=== PATIENT | male | born 1955 | race Caucasian/White ===

== ENCOUNTER 2023-11-20 06:47 | Inpatient (IN) | payer MEDICARE, BC, SELFPAY ==
[2023-11-20] VITALS (59 sets, daily range): BP systolic 52–150; BP diastolic 33–122; BMI 35.3
[2023-11-20] MEDS: NSS 1000 IV ×4 (05:38→20:43)
--- NOTE | 2023-11-20 05:40 | ED.GENMED ---
History of Present Illness
General
Chief Complaint: Abdominal Symptoms
Source: patient and ambulance crew
Exam Limitations: clinical condition
Time Seen by Provider: 11/20/23 05:27
History of Present Illness
History of Present Illness:
68-year-old male who presents with acute rectal bleeding. Patient states that started 2 hours prior to arrival. EMS states that there was a significant amount of blood in the toilet and in the house. He tried crawling out of the bathroom and
syncopized and was hypotensive. Patient reports no pain. Does report mild nausea. Does have a history of diverticulosis. Patient is on Eliquis took his last dose last night. He takes Eliquis due to atrial fibrillation history.
Past History
Past History
ED Past Medical History: Arrthythmia (Atrial fibrillation), HTN, Hypercholesterolemia and Other (Diverticulitis/diverticulosis)
Phy Exam
Physical Exam
Physical Exam:
CONSTITUTIONAL Patient alert and oriented to person, place and time. ill-appearing. Vital signs reviewed.
HEAD atraumatic, normocephalic.
EYES eyelids normal to inspection, Extraocular muscles intact, Conjunctiva normal, Sclera normal.
NECK normal range of motion, Trachea midline, no jugular venous distention.
RESPIRATORY CHEST No respiratory distress noted, Chest expansion equal
ABDOMEN large ventral hernia noted
Rectal obvious blood coming from the rectum
BACK normal inspection, no obvious deformities
UPPER EXTREMITY range of motion normal, Motor strength normal, no cyanosis, no edema.
LOWER EXTREMITY range of motion normal, Motor strength normal, no cyanosis, no edema.
NEURO Speech normal, No focal motor deficits, [place] coma scale 15, Memory normal, Cranial Nerves intact to screening exam.
SKIN skin warm, slightly pale
Course
Orders/Labs/Results
Orders:
Orders
11/20/23 05:27
Electrocardiogram (*1) Stat
Reason for Study: Other
Other Reason for Exam: GI Bleed
Cardiac Monitoring- Treatment ONCE
EKG- Treatment ONCE
IV Insert/Care/Rem.- Treatment PRN
11/20/23 05:33
Type+Screen Urgent
Alcohol Urgent
Complete Blood Count/With Diff Urgent
Comprehensive Metabolic Panel Urgent
Magnesium Urgent
Comment: ADD ON
PTT Urgent
Comment: ADD ON
Prothrombin Time Urgent
11/20/23 05:34
CT Abd/pelvis Angio W/wo Iv Urgent
Comment:
Reason For Exam: lower GI bleed
11/20/23 05:36
* Blood Bank Products Urgent
Blood Bank Products: *Packed RBC Leuko(PRBC's)
Quantity: 2
Transfuse Today: Yes
Reason: Bleeding
11/20/23 05:37
IV Insert/Care/Rem.- Treatment PRN
11/20/23 05:41
Diphenhydramine [Benadryl] 50 mg IV NOW STA
Hydrocortisone Sod Succinate [Solu-Cortef] 200 mg IV NOW STA
11/20/23 05:45
0.9% Sodium Chloride 1000 ml [Nss] 1,000 ml IV 2,000 mls/hr
11/20/23 05:46
Prothrombin Complex(Pcc),Human [Kcentra] 2,573 unit Empty Viaflex Container 100 ml [Viaflex Empty Container] 100 ml IV NOW
11/20/23 Breakfast
NPO
Allow oral meds: Yes
Allow clear liquids: Sips of Clears
NPO with Ice Chips: Yes
11/20/23 06:29
Admit/Transfer Patient As Directed
Co-Sign Provider:
Level of Care: Inpatient admission
Assign to:: ICU
Physician / Group: Micah
Diagnosis: GI Bleed
Reason for Hospitalization: GI Bleed
Expected length of stay greater than two midnights?: Yes
ELOS- Estimated Length of Stay in days: 3
I certify the patient meets the requirements for IP care: Yes
PRN Pain Medication Management As Directed
May give lesser potent ordered pain med per pt: Yes
preference::
Protocol:: Medication orders for pain may be administered in a
manner that supports deferring to patient preference
when the pt is:
- Requesting an ordered lesser potent pain medication.
Least to most potent pain medications are defined
as: acetaminophen < NSAID < tramadol < opioids
(morphine, oxycodone, hydromorphone).
- Requesting a lesser dose of the same medication IF
ORDERED.
- Requesting a less intrusive route of administration
if both routes are prescribed by the provider (PO <
IV).
11/20/23 06:30
Code Status As Directed
Resuscitation Status: Full Code
11/20/23 07:43
GASTROINTESTINAL CONSULT Routine
Consulting Provider: Suri Young
Was physician already notified: Yes
Reason for consult: GI Bleed
Stoper Consult Routine
Consulting Provider: Mik Phipps
Was physician already notified: No
Reason for consult: GI Bleed / Hypotension
11/20/23 07:52
Ondansetron Injectable [Zofran] 4 mg IV Q6HPRN PRN
11/20/23 07:52
Consult Notification Routine
Specialty to Notify: Stoper
Date consulting provider notified: 11/20/23
Time consulting provider notified: 08:02
Notified:: Provider
Activity As Directed
Activity Level: Bedrest
EKG with chest pain [ECG as needed] As Directed
ECG as needed for:: Chest Pain
I/O [Intake/ Output] As Directed
Frequency: Per unit guidelines
Pneumatic Compression Sleeves As Directed
Type: Knee high
Vital Signs As Directed
Frequency: Per unit guidelines
Oxygen Therapy [O2 Therapy] [RESP] Routine
Titrate/Wean O2 to maintain O2 sat greater than (%): 94
DX Deep Vein Thrombosis Video Routine
11/20/23 08:00
0.9% Sodium Chloride 1000 ml [Nss] 1,000 ml IV 200 mls/hr
Pantoprazole [Protonix IV] 40 mg IV BID
11/20/23 09:07
HH [H&H] Q6H
11/20/23 14:13
HH [H&H] Q6H
11/20/23 20:54
HH [H&H] Q6H
Abnormal Lab Results
11/20/23
05:33
WBC 16.4 H 10^3/uL
(4.8-10.8)
RBC 3.61 L 10^6/uL
(4.70-6.10)
Hgb 12.0 L g/dL
(13.0-18.0)
Hct 35.3 L %
(39.0-52.0)
MCV 97.8 H fL
(80.0-94.0)
MCH 33.2 H pg
(27.0-31.0)
Abs Immat Gran (auto) 0.2 H 10^3/uL
(0-0.05)
Absolute Neuts (auto) 13.0 H 10^3/uL
(1.4-6.5)
Absolute Monos (auto) 1.0 H 10^3/uL
(0.1-0.6)
Immature Gran % 1.2 H %
(0-0.5)
Neutrophils % 79.4 H %
(42.2-75.2)
Lymphocytes % 12.1 L %
(20.5-51.1)
PT 17.0 H Sec
(11.4-14.6)
Chloride 109 H mmol/L
(98-107)
BUN 26 H mg/dl
(9-20)
Glucose 257 H mg/dl
(70-99)
Total Protein 5.2 L g/dl
(6.3-8.2)
Albumin 2.8 L g/dl
(3.5-5.0)
Crossmatch IS Only See Detail
11/20/23 05:33
11/20/23 05:33
Vital Signs
Initial and Last Documented VS:
Initial Vital Signs
Pulse Resp Pulse Ox
93 20 95
11/20/23 05:28 11/20/23 05:28 11/20/23 05:28
Last Documented Vital Signs
Temp Pulse Resp BP Pulse Ox
98.0 F 87 20 131/77 96
11/21/23 03:34 11/21/23 04:30 11/21/23 04:30 11/21/23 04:00 11/21/23 04:30
MDM/Problems Addressed
MDM/Problems Addressed:
Acute severe GI bleeding, therapeutic coagulopathy
*Pulse Oximetry
Patient hypoxic: no
*Acetylene Plant Operator Interpretation
Rate: normal
Interpretation: normal
Rhythm: sinus
*Critical Care Note
Total Time (30-74mins, 75-104mins- exclusive of procedures): 80 minutes
Data Reviewed
Source: patient and ambulance crew
Patient Management
Discussion with other providers: Hospitalist and Epic Ambulatory Analyst (Case discussed with gastroenterology)
Update Note
Update Note:
6:15 AM blood pressure improving with IV fluids. GI aware. Hospitalist at bedside. Case was discussed with hospitalist. Marquita ramires.
ED Attending Note
-
Portions of this chart may have been created with voice recognition software.� Occasional wrong word or��sound alike� substitutions may have occurred due to the inherent limitations of voice recognition software.
Discharge Plan
Departure
Patient Disposition: Admit
Date of Disposition: 11/20/23
Time of Disposition: 06:01
Admit to: ICU
Presentation/result/management discussed w/ accepting MD/DO: Hospitalist
Discharge Problem:
Acute GI bleeding
Interventions
Interventions:
*General Assessment Last Done: 11/20/23 08:01
*Neglect/Abuse Screening Last Done: 11/20/23 08:01
ED- Fall Risk Assessment Last Done: 11/20/23 06:03
*Nursing Disposition Last Done: 11/20/23 08:01
NE-Rpakcm-Wvbwwevoxj Assessment Last Done: 11/20/23 06:03
Discharge Date and Time
Discharge Date/Time: 11/20/23 08:03
[2023-11-20 05:41] LABS: % Basophils 0.4 % (0-2); % Eosinophils 0.8 % (0-6); % Immature Granulocytes 1.2 % (0-0.5); % Lymphocytes 12.1 % (20.5-51.1); % Monocytes 6.1 % (1.7-9.3); % Neutrophils 79.4 % (42.2-75.2); Absolute Basophils 0.1 10^3/uL (0-0.2); Absolute Eosinophils 0.1 10^3/uL (0-0.7); Absolute Immature Granulocytes 0.2 10^3/uL (0-0.05); Hematocrit 35.3 % (39.0-52.0); Mean Corpuscular Hgb 33.2 pg (27.0-31.0); Mean Corpuscular Volume 97.8 fL (80.0-94.0); Mean Platelet Volume 10.1 fL (7.4-10.4); Nucleated Red Blood Cells % 0 % (-); Platelet Count 179 10^3/uL (130-400); Red Blood Cell Count 3.61 10^6/uL (4.70-6.10); Red Cell Dist. Width 13.3 % (11.5-14.5); White Blood Cell Count 16.4 10^3/uL (4.8-10.8)
[2023-11-20 05:51] LABS: INR 1.41
[2023-11-20 05:53] LABS: ALT (SGPT) 33 U/L (0-50); AST (SGOT) 26 U/L (17-59); Albumin 2.8 g/dl (3.5-5.0); Alkaline Phosphatase 69 U/L (38-126); Blood Urea Nitrogen 26 mg/dl (9-20); Carbon Dioxide 22 mmol/L (22-30); Chloride 109 mmol/L (98-107); Glucose 257 mg/dl (70-99); Potassium 4.7 mmol/L (3.5-5.1); Sodium 135 mmol/L (135-145); Total Bilirubin 0.6 mg/dl (0.2-1.3); Total Protein 5.2 g/dl (6.3-8.2); eGFR > 60.00
[2023-11-20] MEDS: SOLU-CORTEF 200 MG IV (05:53)
[2023-11-20] MEDS: BENADRYL 50 MG IV (05:53)
[2023-11-20] MEDS: KCENTRA 100 UNIT IV (05:56)
--- NOTE | 2023-11-20 06:35 | HPS.HSE ---
Family Physician
-
Family Physician: PHYSICIAN PRIVATE
Chief Complaint
-
GI Bleeding
History of Present Illness
Patient is a 68y M with PMH significant for A-Fib on anticoagulation and diverticular disease who presents to ED complaining of gross rectal bleeding, N/V and syncope at home this evening. Patient states that he was feeling well when he went to
bed last PM. He woke around 3 AM with urge to move his bowels and had loose, non-bloody BM. He states that he woke several additional times throughout the evening. On the third such episode, he noted a small amount of BRB in the stool. He had
any additional 2-3 episodes with progressively more blood ultimately resulting in bright red blood 'all over' the bathroom and his person. Patient began to feel nauseated, lightheaded and diaphoretic. He had several episodes of emesis at home. He
called 911. He attempted to get out of the bathroom and notes that he passed out.
EMS arrived to find the patient covered in bright red blood and lethargic.
He was brought to the ED for further evaluation.
Patient had additional episodes of emesis en route to the ED - no noted blood / coffee ground / etc.
Patient denies any prior history of GI bleeding.
He has history of complicated diverticulitis and require partial colon resection (approx 2001).
Patient is on Eliquis for A-Fib and his last dose of this was the PM of 11/18.
Medical History
Past Medical History
Past Medical History: Reports Other
Additional Past Medical History:
Atrial Fibrillation
Diverticular Disease
Large Ventral Hernia
Past Surgical History: Reports Other
Additional Past Surgical History:
Partial Colectomy
Bladder Mass Excision / Ureteral Stenting
Umbilical Hernia Repair
Cataracts
DCCV x 2
Social History
Tobacco: Non-smoker
Alcohol: Occasional (Rarely)
Drug: None
Family History
Family History: Not pertinent
Allergies / Home Medications
Allergies reflects when Allergies were last updated in [facility].
Home Medications with original date entered in [facility]
Allergy/Medication List:
Allergies
Allergy/AdvReac Type Severity Reaction Status Date / Time
Iodinated Contrast Media Allergy Vomiting Verified 11/20/23 05:36
Home Medications
apixaban 5 mg tablet (Eliquis) 5 mg PO BID 11/20/23
propafenone 325 mg capsule,extended release 12 hr 325 mg PO Q12H 11/20/23
Patient states that he takes 'two other medications'. But he cannot recall the names / doses.
Pharmacy is [facility] [place].
Review of Systems
-
History Source: Patient
A 12 point ROS was completed and negative except as noted: Yes
Constitutional: Reports Fatigue; Denies Fever or Chills
EENT: Denies Sore Throat
Respiratory: Denies Cough, Hemoptysis or Trouble Breathing
Cardiac: Reports Diaphoresis and Syncope; Denies Chest Pain or Palpitations
Abdomen/GI: Reports Nausea, Vomiting, Diarrhea and Bloody Stools; Denies Abdominal Pain
: Denies Dysuria, Frequency or Flank Pain
Musculoskeletal: Denies Joint Pain or Edema
Psych: Denies Depression or Anxiety
Physical Exam
Vital Signs
Vital Signs
Pulse Resp BP Pulse Ox
94 17 103/56 94
11/20/23 06:00 11/20/23 06:00 11/20/23 06:00 11/20/23 06:00
Physical Exam
General: Other (68y M appears acutely ill. Mildly pale and diaphoretic.)
HEENT: Other (Dry MM. Thick neck.)
Respiratory: Clear; No Wheezes, Rales or Rhonchi
Cardiac: S1/S2 and Regular Rhythm; No Murmur
GI: Other (Obese. Massive ventral hernia. Not tender. Gross rectal bleeding / clots appreciated.)
Musculoskeletal: No Clubbing, No Cyanosis, No Edema and Other (Chronic venous stasis skin changes.)
Neuro: AO x 3
Laboratory Results
-
11/20/23 05:33
11/20/23 05:33
Laboratory Results
PT 17.0 Sec (11.4-14.6) H 11/20/23 05:33
INR 1.41 11/20/23 05:33
Total Bilirubin 0.6 mg/dl (0.2-1.3) 11/20/23 05:33
AST 26 U/L (17-59) 11/20/23 05:33
ALT 33 U/L (0-50) 11/20/23 05:33
Alkaline Phosphatase 69 U/L (38-126) 11/20/23 05:33
Impression/Plan
-
A/P: Patient is a 68y M with PMH significant for A-Fib and diverticular disease who presents to ED complaining of lower GI bleeding and syncope at home this AM.
Lower GI Bleed
Hypotension secondary to the above
Syncope likely secondary to the above
- Admit to ICU for further evaluation and treatment.
- KCentra administered in the ED given Eliquis use and active bleeding.
- Hold further Eliquis (last dose last PM).
- Aggressive IVF support and follow BP.
- CTA ordered and is pending at this time (requires pre-treatment due to dye allergy).
- Follow-up results of CTA and consider IR eval / angio if evidence of active extravasation.
- 2 units PRBCs ordered given evident / significant blood loss.
- Follow H&H and provide additional PRBCs if needed.
- GI evaluation.
Leukocytosis
- Likely stress response to significant bleeding, etc.
- No evidence for active infection.
- Observe off of abx for now.
- Follow for fever, new symptoms, etc.
Atrial Fibrillation - Unknown Type
- Stable. Hold PO meds including propafenone and Eliquis.
- Monitor on telemetry.
- Consider IV medications if needed for rate control, etc.
Massive Ventral Hernia
- Patient states this occurred following partial colon resection.
- No current abdominal pain. No significant change in hernia per patient.
- Follow-up results of CT as noted above.
DVT Prophylaxis: SCDs
Code Status: Full
--- NOTE | 2023-11-20 06:55 | EDRN ---
Addendum entered by Marilee Ryan, RN 11/20/23 07:26:
Patient brought back to room by 2 RNs. Blood initiated emergently per Dr. Orantes's orders. Patient remains responsive to verbal stimuli.
Original Note:
Patient taken to CT scan, when moved over to the table patient had a vagal response. Patient diaphoretic and unresponsive. Dr. Mariscal at bedside in CT. Blood card sent at this time. Patient became responsive, Dr. Mariscal stated to complete CT
--- NOTE | 2023-11-20 07:38 | W.PN.HOSP.TC ---
Today's Communication/Plan
-
monitor H&H
GI Bioinformatics Computer Scientist eval
Blood transfusion
considering Nuclear Bleeding Scan if bloody bowel movements persist
Assessment / Plan
Assessment / Plan
Physical Exam
General: no acute distress appears comfortable at this time. Obese
HEENT: Dry MM. Thick neck
Respiratory: Clear; No Wheezes, Rales or Rhonchi
Cardiac: S1/S2 and Regular Rhythm; No Murmur
GI: Massive ventral hernia. Not tender
Musculoskeletal: No Clubbing, No Cyanosis, No Edema, Chronic venous stasis skin changes
Neuro: AO x 3
A/P: Patient is a 68y M with PMH significant for A-Fib and diverticular disease who presents to ED complaining of lower GI bleeding and syncope at home this AM.
Lower GI Bleed
Hypotension secondary to the above
Syncope likely secondary to the above
- ICU admit
- KCentra administered in the ED given Eliquis use and active bleeding.
- Hold further Eliquis (last dose last PM).
- Aggressive IVF support and follow BP.
- CTA appreciated no active bleeding noted. Will consider Nuclear Bleeding Scan if bleeding persists
- 2 units PRBCs ordered given evident / significant blood loss.
- monitor H&H
- GI Bioinformatics Computer Scientist evaluation.
-Levophed prn goal MAP>65
Leukocytosis
- Likely stress response to significant bleeding, etc.
- No evidence for active infection.
- Observe off of abx for now.
- Follow for fever, new symptoms, etc.
Atrial Fibrillation - Unknown Type
- Stable. Hold Eliquis as above
-resume home propafenone (patient's own med)
- cont panel monitor
- Consider IV medications if needed for rate control, etc.
Massive Ventral Hernia
- Patient states this occurred following partial colon resection.
- No current abdominal pain. No significant change in hernia per patient.
- Follow-up results of CT as noted above.
DVT Prophylaxis: SCDs
Code Status: Full
Total Critical Care Time__40___ minutes. I was immediately available to the patient and staff. I personally examined, reviewed labs, diagnostic images/reports, interpretations, treatment plans, discussed patient care with other providers and
patient, entered orders as appropriate and documented the medical record.
Anticipated Discharge: > 48 hours
Subjective/Interval History
-
Date of Service: November 20, 2023
Seen and examined at bedside in no acute distress. Reports feeling better (resolution of lightheadedness palpitations) following blood transfusions (on 2nd unit during evaluation). Continues to endorse bloody bowel movements with associate
cramping.
Objective Data
-
Labs:
Laboratory Results
11/20/23
05:33
WBC 16.4 H
Hgb 12.0 L
Hct 35.3 L
Plt Count 179
PT 17.0 H
INR 1.41
Sodium 135
Potassium 4.7
Chloride 109 H
Carbon Dioxide 22
BUN 26 H
Creatinine 1.1
Glucose 257 H
Calcium 9.0
Total Bilirubin 0.6
AST 26
ALT 33
Alkaline Phosphatase 69
Vital Signs:
Vital Signs
Temp Pulse Resp BP Pulse Ox
97.7 F 91 13 120/68 94
11/20/23 07:30 11/20/23 07:30 11/20/23 07:30 11/20/23 07:30 11/20/23 07:30
I&O
11/19/23 11/20/23 11/21/23
06:59 06:59 06:59
Intake Total 0 / 0
Balance 0 / 0
--- NOTE | 2023-11-20 08:26 | PTCARENOTE ---
0826 admitted from ED DX GI bleed. patient transfer via stretcher. AAO x3; drowsy, responds slow to questions; BP via RT upper arm 101/73 MAP 82 SR 97; RR 18; 98% RA. SR cardiac rhythm. No edema pedal pulses palpable PVD changes to b/L LE. Abdominal
large hernia, abdomen soft , non tender. c/o of abdominal cramping, Large amount of bright red with clots via rectum . pt NPO.
At 08:26 BP 64/47; HR 87 . GI service at bedside. per V.O NSS wide open 1L initiated. 2nd unit PRBC started ., H/H send result pending. Peripheral lines left x2 RT out arm # 18 capped
[2023-11-20 08:30] LABS: APTT 29.1 Sec (23.4-35.0)
--- NOTE | 2023-11-20 08:55 | CON.GI ---
Consultation
-
Date/Time Consultation Requested: 11/20/23 0743
Date/Time Consultation Performed: 11/20/23 0820
Requesting Provider: Dr Obrien
Performing Provider: Dr. Young / Negin Galeana PA-C
Reason for Consultation: lower GI bleeding
Medical History
Chief Complaint / HPI
Chief Complaint: rectal bleeding
History of Present Illness:
This is a 68 year old male with a past medical history of atrial fibrillation (on Eliquis), prior history of diverticulitis 20 years ago (s/p partial colectomy), ventral hernia who presented to the ER for acute rectal bleeding. He states that he
went to bed last night feeling well, and woke up in the night with the urge to have a bowel movement. He did pass stool, described as brown, formed but slightly loose, and then started to notice a small amount of blood in the bowel movements. This
progressed to passing only blood, which was described as 'a lot' and bright red in color. He felt nauseous and did vomit a few times as well - no hematemesis or coffee grounds emesis. He called 911 and per patient, he lost consciousness. EMS arrived
and patient was transported to the ED, where he continued to have additional episodes of rectal bleeding. Hemoglobin in the ER stable at 12.0, repeat is still pending. He was noted to be hypotensive, patient was given IV fluid and transfused 1 unit
of PRBCs in the ER. He denies any abdominal pain, diarrhea, fever, chills. He has never had any bleeding like this before. Patient denies NSAID use. He is on Eliquis for a fib, last dose was 11/19/23 in the evening. CTA abdomen negative for active
bleeding.
His last colonoscopy was approximately [address] Gomez at [facility], normal per patient. He denies any history of colon polyps. There is no family history of colon cancer or IBD. He does note that he has had a large ventral hernia
since his partial colectomy but it has not caused him any pain. He also notes a history of bladder mass, which was removed at the time of the colectomy surgery, but states it was not malignant.
Past Medical History
Past Medical History: Other (atrial fibrillation, diverticular disease, ventral hernia)
Past Surgical History: Other (partial colectomy ~20 years ago due to acute diverticulitis)
Social History
Tobacco: Non-Smoker
Alcohol: Occasional
Drug: None
Family History
Family History: Other (no family history of GI malignancies or IBD)
Allergies / Home Medications
Allergy/AdvReac Type Severity Reaction Status Date / Time
Iodinated Contrast Media Allergy Vomiting Verified 11/20/23 05:36
�Medication �Instructions �Recorded
apixaban 5 mg tablet (Eliquis) 5 mg PO BID 11/20/23
propafenone 325 mg 325 mg PO Q12H 11/20/23
capsule,extended release 12 hr
Review of Systems
-
History Source: Patient
All other systems: A 12 pt ROS was Negative except as stated above in HPI
Vital Signs
Temp Pulse Resp BP Pulse Ox
98 F 89 18 80/67 98
11/20/23 08:35 11/20/23 08:35 11/20/23 08:35 11/20/23 08:35 11/20/23 07:45
Physical Exam
Exam
General: Well Developed, Well Nourished and No Apparent Distress
Respiratory: Clear
Cardiac: Regular Rhythm
GI: Soft, Non Tender, Normal Bowel Sounds and Other (obese abdomen, with large ventral hernia, nontender to palpation)
Rectal: Other (large burgundry clots noted on rectal exam, no active bleeding)
Skin: Warm and Dry
Neuro: AO x 3
Psych: Calm
Results
WBC 16.4 10^3/uL (4.8-10.8) H 11/20/23 05:33
Hgb 12.0 g/dL (13.0-18.0) L 11/20/23 05:33
Hct 35.3 % (39.0-52.0) L 11/20/23 05:33
MCV 97.8 fL (80.0-94.0) H 11/20/23 05:33
Plt Count 179 10^3/uL (130-400) 11/20/23 05:33
Absolute Neuts (auto) 13.0 10^3/uL (1.4-6.5) H 11/20/23 05:33
PT 17.0 Sec (11.4-14.6) H 11/20/23 05:33
INR 1.41 11/20/23 05:33
APTT 29.1 Sec (23.4-35.0) 11/20/23 05:33
Sodium 135 mmol/L (135-145) 11/20/23 05:33
Potassium 4.7 mmol/L (3.5-5.1) 11/20/23 05:33
Chloride 109 mmol/L (98-107) H 11/20/23 05:33
Carbon Dioxide 22 mmol/L (22-30) 11/20/23 05:33
BUN 26 mg/dl (9-20) H 11/20/23 05:33
Creatinine 1.1 mg/dL (0.7-1.3) 11/20/23 05:33
Calcium 9.0 mg/dl (8.4-10.2) 11/20/23 05:33
Total Bilirubin 0.6 mg/dl (0.2-1.3) 11/20/23 05:33
AST 26 U/L (17-59) 11/20/23 05:33
ALT 33 U/L (0-50) 11/20/23 05:33
Alkaline Phosphatase 69 U/L (38-126) 11/20/23 05:33
Diagnostic Image Results:
CTA Abdomen/Pelvis 11/20/23:
1. No CTA evidence for active GI bleed.
2. No abdominal aortic aneurysm or dissection.
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
4. Moderate diffuse colonic stool burden with scattered probable intraluminal blood products.
5. Large ventral abdominal wall hernia containing bowel loops without complication.
Prior GI Procedures:
EGD: never
Colonoscopy: ~5 years ago, with Dr. Gomez, normal per patient
Assessment / Plan
-
68 year old male with history of atrial fibrillation (on Eliquis), prior history of diverticulitis 20 years ago (s/p partial colectomy), ventral hernia admitted to the ICU for acute rectal bleeding with syncope at home and hypotension. He has had
multiple episodes of passing bright red blood with clots per rectum since arrival in the ER. Hemoglobin stable at 12.0, repeat is still pending. Patient was given IV fluid and transfused 1 unit of PRBCs in the ER, second unit is in progress. He
denies any abdominal pain, diarrhea, fever, chills. He denies any prior episodes of GI bleeding. He did have diverticulitis 20 years ago, requiring partial colectomy. No NSAID use. He is on Eliquis for a fib, last dose was 11/19/23 in the evening.
CTA abdomen negative for active bleeding. BP improving with fluids and transfusion. His last colonoscopy was approximately [address] Gomez at [facility], normal per patient. He denies any history of colon polyps. There is no family
history of colon cancer or IBD.
IMPRESSION / PLAN:
Lower GI Bleed, acute - suspect diverticular bleeding
-Hgb 12.0 on arrival in ED, repeat pending
-2 units PRBCs ordered, received 1 unit in ER, second unit in progress
-trend hemoglobin, transfuse again if drops below 7.0
-monitor hypotension, continue aggressive IVF support
-will plan for colonoscopy on Tuesday 11/21 after Eliquis washout
Ventral Hernia
-stable and patient currently has no abdominal pain
We will follow.
-
-
Thank you for consultation and allowing me to participate in the patient's care. Please call the personnel consultant GI physician during the after hours with any questions or concerns.
[2023-11-20 09:16] LABS: Hematocrit 32.9 % (39.0-52.0); Hemoglobin 11.3 g/dL (13.0-18.0)
--- NOTE | 2023-11-20 09:33 | CON.INTV ---
Consultation
Consultation Request
Date/Time Consultation Requested: 11/20/2023-8 AM
Date/Time Consultation Performed: 11/20/2023-8 AM
Requesting Provider: Hospitalist
Performing Provider: Dr. Phipps
Reason for Consultation: GI bleed/hypotension/critical care management
Medical History
-
Chief Complaint: GI bleed
History of Present Illness:
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
Patient continues to feel weak with marginal blood pressure. He denies any shortness of breath at rest, chest pain, chest tightness, chest congestion, productive cough, and denies any abdominal pain. He did have blood per rectum and syncopal
episode. He does not complain of increased lower extremity swelling or focal weakness.
Past Medical History
Past Medical History: None (Atrial fibrillation on anticoagulation. Diverticular disease. Ventral hernia. Asthma. Obstructive sleep apnea on CPAP. Partial colectomy. Umbilical hernia repair. Bladder mass excision/ureteral stenting. Cataract.)
Social History
Tobacco: Non-smoker
Alcohol: Occasional (Rare)
Drug: None
Living: With Family
Occupational Exposures: No known asbestos exposure
Environmental Exposures: No known tuberculosis exposure
Family History
Family History: Reviewed & Not Pertinent
Allergies / Home Medications
Allergies
Allergy/AdvReac Type Severity Reaction Status Date / Time
Iodinated Contrast Media Allergy Vomiting Verified 11/20/23 05:36
Home Medications
�Medication �Instructions �Recorded �Confirmed �Last Taken �Type
apixaban 5 mg tablet (Eliquis) 5 mg PO BID 11/20/23 11/20/23 Unknown History
propafenone 325 mg 325 mg PO Q12H 11/20/23 11/20/23 Unknown History
capsule,extended release 12 hr
Review of Systems
-
Unable to Obtain full review of systems at this time due to: Other (Per HPI)
Vitals / Labs / Diagnostic Testing
Vital Signs
Temp Pulse Resp BP Pulse Ox
98.0 F 84 18 139/122 98
11/20/23 08:50 11/20/23 08:50 11/20/23 08:50 11/20/23 08:50 11/20/23 08:50
Lab Data
11/20/23 05:33
Laboratory Results
11/20/23
05:33
PT 17.0 H
INR 1.41
APTT 29.1
Diagnostic Testing:
Physical Exam
-
Exam:
Well-nourished and well-developed in no apparent distress
HEENT-atraumatic, normocephalic
Neck-supple, no JVD, no bruit
Heart-regular rate and rhythm-no murmurs, rubs or gallops
Chest-clear to auscultation, no wheezes, crackles
Back-no tenderness
Abdomen-soft, nontender, nondistended, no hepatosplenomegaly
Extremities-no cyanosis, clubbing, edema and good peripheral pulses
Integument-intact, no rashes, lesions or ecchymosis
Neurology-alert and oriented, nonfocal motor and sensory exam
Assessment
-
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
GI bleed-lower
Hypotension secondary to acute blood loss
Anemia due to acute blood loss-initial 12.0 and now 11.3
Syncope due to blood loss/hypotension
Leukocytosis-WBC 16.4
Atrial fibrillation on Eliquis
Massive ventral hernia-occurred following partial colon resection
Hyperglycemia-blood sugar 257
Conditions present prior to admission:
Atrial fibrillation on anticoagulation.
Diverticular disease-20 years ago status post partial colectomy
Ventral hernia.
Asthma.
Obstructive sleep apnea on CPAP.
Partial colectomy.
Umbilical hernia repair. Bladder mass excision/ureteral stenting. Cataract.
Plan
Patient will be admitted to medical intensive care with active bleeding, critically ill and in need of resuscitation
Supplemental oxygen as needed
Intubated mechanically ventilated if needed
Aspiration precautions
Incentive spirometry
Monitor hemoglobin
Transfuse packed red blood cells and FFP as needed
Monitor coagulopathy
GI evaluation ongoing
Eliquis held
Kcentra provided
Last colonoscopy 5 years ago-Dr. Gomez at [facility]
Repeat colonoscopy Wednesday after Eliquis washout
Abdominal ultrasound
CT abdomen-summarized below
Monitor blood sugar
Insulin supplementation as needed
Check A1c
DVT prophylaxis-mechanical
GI prophylaxis
Aspiration precautions
Nutrition
Early mobilization
Patient reports follow-up with pulmonary/sleep specialist in [place] for his 'mild asthma' and SHAY/CPAP-tolerant
Critical care statement: A total of 50 minutes of critical care time was provided for this patient today. This includes management of unstable vital signs, management of transfusions, evaluation of the patient at bedside, reviewing the patient's
pertinent medical records including radiographs, pressor management, transfusion management, microbiology, laboratory evaluations, and discussion with primary team, consultants, pharmacy, nutrition, physical therapy, case management, charge nurse,
critical care nursing, and respiratory therapy.
Diagnostic data:
Chest x-ray 11/20/2023-NAD
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
Data Reviewed
-
EKG: Report reviewed by me
Radiology: Report reviewed by me
CT Scan: Report reviewed by me
Ultrasound: Report reviewed by me
Medical Tests (Nuc Med, Echo etc): Report reviewed by me
Labs: Labs reviewed by me
Old Records: Reviewed
Critical Care Time (in minutes): 50
[2023-11-20] MEDS: NSS IV ×3 (10:00→19:40)
[2023-11-20 10:32] LABS: Alcohol None Detected
[2023-11-20] MEDS: NSS (PRESERVATIVE FREE) 10 ML IV ×2 (11:23→20:41)
[2023-11-20] MEDS: PROTONIX IV 40 MG IV ×2 (11:23→20:41)
[2023-11-20 11:45] LABS: Glucose - Point of Care 143 mg/dl (70-99)
--- NOTE | 2023-11-20 12:18 | PTCARENOTE ---
Diet changed from NPO TO CLEAR Liquid per note from tina Kam
[2023-11-20] MEDS: MIRALAX 17 GRAMS PO ×2 (12:51→20:40)
[2023-11-20 15:14] LABS: Lactic Acid 2.4 mmol/L (0.7-2.0)
[2023-11-20] MEDS: NON-FORMULARY ITEM 325 MG PO (17:30)
[2023-11-20 17:58] LABS: Glucose - Point of Care 95 mg/dl (70-99)
--- NOTE | 2023-11-20 18:14 | PTCARENOTE ---
pt in bed on bedrest. BP via RT upper arm 114/74 MAP 85; HR 100 RR 19; Denies pain . No rectal bleed since 14:00; 1st Lactic 2.6 Per protocol 2nd Lactic send results pending. Able to tolerate clear liquid without difficulties . Blood sugar 98 call
mendiola within reach
[2023-11-20 18:30] LABS: Lactic Acid 2.1 mmol/L (0.7-2.0)
[2023-11-20 21:13] LABS: Hematocrit 26.6 % (39.0-52.0); Hemoglobin 9.5 g/dL (13.0-18.0)
[2023-11-20 21:49] LABS: Glucose - Point of Care 85 mg/dl (70-99)
[2023-11-21] VITALS (31 sets, daily range): BP systolic 87–156; BP diastolic 38–131; PULSE 88–113; BMI 36.1
--- NOTE | 2023-11-21 02:17 | PTCARENOTE ---
Pt Aox3, VSS, NSR on monitor, lower extremity edema, PVD B/L legs right greater than left. palpable pulses. Obese abdomen, large hernia, + BS, no BM since 1400, pt is passing flatus. NS infusing at 100ml/hr. Hemoglobin 9.5
[2023-11-21] MEDS: NON-FORMULARY ITEM 325 MG PO ×2 (04:17→15:10)
[2023-11-21 04:25] LABS: Hematocrit 25.4 % (39.0-52.0); Hemoglobin 8.9 g/dL (13.0-18.0); Mean Corpuscular Hgb 33.5 pg (27.0-31.0); Mean Corpuscular Volume 95.5 fL (80.0-94.0); Mean Platelet Volume 9.9 fL (7.4-10.4); Platelet Count 117 10^3/uL (130-400); Red Blood Cell Count 2.66 10^6/uL (4.70-6.10); Red Cell Dist. Width 13.9 % (11.5-14.5); White Blood Cell Count 9.5 10^3/uL (4.8-10.8)
[2023-11-21 04:39] LABS: Blood Urea Nitrogen 22 mg/dl (9-20); Calcium 8.6 mg/dl (8.4-10.2); Carbon Dioxide 24 mmol/L (22-30); Chloride 112 mmol/L (98-107); Estimated Creatinine Clearance > 125 ml/min; Glucose 92 mg/dl (70-99); Magnesium 1.9 mg/dl (1.6-2.3); Phosphorus 2.4 mg/dl (2.5-4.5); Potassium 4.2 mmol/L (3.5-5.1); Sodium 135 mmol/L (135-145); eGFR > 60.00
[2023-11-21] MEDS: NSS 1000 IV (05:49)
--- NOTE | 2023-11-21 07:19 | W.PN.HOSP.TC ---
Today's Communication/Plan
-
Monitor H&H, transfusion goal hgb>8
rate control
blood pressure control
NPO after midnight for EGD/Colonoscopy
Bowel prep as per GI
Assessment / Plan
Assessment / Plan
Physical Exam
General: no acute distress appears comfortable at this time. Obese
HEENT: Dry MM. Thick neck
Respiratory: Clear; No Wheezes, Rales or Rhonchi
Cardiac: S1/S2 and Regular Rhythm; No Murmur
GI: Massive ventral hernia. Not tender
Musculoskeletal: No Clubbing, No Cyanosis, No Edema, Chronic venous stasis skin changes
Neuro: AO x 3
A/P: Patient is a 68y M with PMH significant for A-Fib and diverticular disease who presents to ED complaining of lower GI bleeding and syncope at home this AM.
Lower GI Bleed
Hypotension secondary to the above
Syncope likely secondary to the above
- ICU admit
- KCentra administered in the ED given Eliquis use and active bleeding.
- Hold Eliquis.
- IVF support completed stable BP
- CTA appreciated no active bleeding noted
- 2 units PRBCs ordered given evident / significant blood loss.
- H&H stable so far
- GI eval appreciated npo after midnight for EGD/Colonoscopy
-Rehab/Pre Vocational Counselor evaluation appreciated
-Levophed prn goal MAP>65 (has not required)
Mild Persistent Lactic acidosis
monitor
Leukocytosis stress reactive resolved off abx
Hyperglycemia on admission
no hx diabetes
A1c unreliable with recent transfusion
low dose sliding scale for now
sugar since improved
paroxysmal atrial fibrillation
- NSR. Hold Eliquis as above
-cont home propafenone (patient's own med)
-home metoprolol resumed with holding parameters
- cont monitor technician
-IV lopressor prn persistent HR>120 hold if SBP<100
Massive Ventral Hernia
- Patient states this occurred following partial colon resection.
- No current abdominal pain. No significant change in hernia per patient.
- Large ventral abdominal wall hernia containing bowel loops without complication.
DVT Prophylaxis: SCDs
Code Status: Full
Total Critical Care Time__40___ minutes. I was immediately available to the patient and staff. I personally examined, reviewed labs, diagnostic images/reports, interpretations, treatment plans, discussed patient care with other providers and
patient, entered orders as appropriate and documented the medical record.
Anticipated Discharge: > 48 hours
Subjective/Interval History
-
Date of Service: November 21, 2023
Seen and examined at bedside in no acute distress. Reports overall feeling well. Resolution of bloody bowel movements. Denies pain
Objective Data
-
Labs:
Laboratory Results
11/20/23 11/21/23 11/21/23
20:54 04:14 04:14
WBC 9.5
Hgb 9.5 L Cancelled 8.9 L
Hct 26.6 L Cancelled
Plt Count
Sodium
Potassium
Chloride
Carbon Dioxide
BUN
Creatinine
Glucose
Calcium
11/21/23
04:14
WBC
Hgb
Hct 25.4 L
Plt Count 117 L D
Sodium 135
Potassium 4.2
Chloride 112 H
Carbon Dioxide 24
BUN 22 H
Creatinine 0.8
Glucose 92
Calcium 8.6
Vital Signs:
Vital Signs
Temp Pulse Resp BP Pulse Ox
98.1 F 87 20 131/77 96
11/21/23 07:00 11/21/23 04:30 11/21/23 04:30 11/21/23 04:00 11/21/23 04:30
I&O
11/20/23 11/21/23 11/22/23
06:59 06:59 06:59
Intake Total 4330 / 4330
Output Total 1650 / 1650 275 / 275
Balance 2680 / 2680 -275 / -275
[2023-11-21 08:04] LABS: Glucose - Point of Care 148 mg/dl (70-99)
[2023-11-21] MEDS: PROTONIX IV 40 MG IV ×2 (09:04→21:25)
[2023-11-21] MEDS: MIRALAX 17 GRAMS PO (09:04)
[2023-11-21] MEDS: NSS (PRESERVATIVE FREE) 10 ML IV ×2 (09:04→21:25)
[2023-11-21] MEDS: NEUTRA-PHOS POWDER PACKET 250 MG PO ×4 (09:08→21:25)
[2023-11-21] MEDS: NSS 500 IV (09:08)
--- NOTE | 2023-11-21 09:16 | W.PN.GI.CBS2 ---
Today's Communication / Plan
-
IVF, hold eliquis, plan for colonoscopy +/- EGD tomorrow, begin prep today.
Assessment / Plan
-
Vu Sinha is a 68-year-old male with past medical history of diverticulitis status post partial colectomy 20 years ago, bladder mass excision/ureteral stenting, A-fib on Eliquis, ventral hernia who presented to [facility] early this
morning with large-volume hematochezia and possible syncope, reports he lost consciousness prior to EMS arrival. On arrival to the ED he was noted to be hypotensive with blood pressures in the 70s over 50s, tachycardic in the 90s to 100s, initial
hemoglobin was 12.
LGIB-- suspect 2/2 diverticular bleeding vs. AVM vs. [place]ul[place] vs. ischemic vs. polyp or malignancy vs. small bowel or UGIB
-hemodynamically unstable on arrival, now improved with resuscitation; orthostatic this morning; continue IVF
-hold eliquis (last dose 11/18 pm)
-CTA negative for active GI bleeding, shows moderate diffuse colonic stool burden with scattered probable intraluminal blood products; Large ventral abdominal wall hernia containing bowel loops without complication.
-leukocytosis resolved, initial WBC 16.4 --> 9.5
-lactate 2.4 --> 2.1
-2 large peripheral gauge IVs
-active T&C
-Hgb 12.0 --> 11 --> 9.5 -->8.9 s/p 2 units of PRBC
-BUN 26 --->22, suspect 2/2 dehydration, rather than UGIB source
-trend CBC [id number]
-plan for colonoscopy +/- EGD tomorrow,, to allow time for eliquis washout
- will start prep now
Subjective
Subjective
Date of Service: November 21, 2023
Patient seen in follow-up this morning, no BMs since yesterday morning. He is hypotensive this morning, orthostatic positive. Flomax held due to blood pressure, reports increased urgency but otherwise offers no complaints. He was transfused with 2
units of PRBC yesterday, hemoglobin 11 --> 9.5 -->8.9. BUN 26 --->22
Objective
Data Reviewed
Laboratory Data:
Laboratory Results
11/21/23 04:14
Laboratory Results
PT 17.0 Sec (11.4-14.6) H 11/20/23 05:33
INR 1.41 11/20/23 05:33
APTT Cancelled 11/20/23 18:00
Phosphorus 2.4 mg/dl (2.5-4.5) L 11/21/23 04:14
Magnesium 1.9 mg/dl (1.6-2.3) 11/21/23 04:14
Total Bilirubin 0.6 mg/dl (0.2-1.3) 11/20/23 05:33
AST 26 U/L (17-59) 11/20/23 05:33
ALT 33 U/L (0-50) 11/20/23 05:33
Alkaline Phosphatase 69 U/L (38-126) 11/20/23 05:33
Vital Signs and I&O:
Vital Signs
Temp Pulse Resp BP Pulse Ox
98.1 F 87 20 131/77 96
11/21/23 07:00 11/21/23 04:30 11/21/23 04:30 11/21/23 04:00 11/21/23 04:30
I&O
11/20/23 11/21/23 11/22/23
06:59 06:59 06:59
Intake Total 4330 / 4330
Output Total 1650 / 1650 275 / 275
Balance 2680 / 2680 -275 / -275
Physical Exam
Physical Exam
GENERAL: In no acute distress, appears comfortable
ABDOMEN: +BS; soft, non-tender and non-distended; +large ventral hernia
--- NOTE | 2023-11-21 09:21 | PTCARENOTE ---
patient received in bed. No bloody stools over night. NSS 100/hr infusing via RT FA peripheral line . Patient denies nausea and dizziness while laying. Orthostatic BP checked with 3 mints in between position changes : Supine 123/72 HR 88; Sitting
126/72 HR 88; Standing BP 87/77 hR 123 pt c/o of been dizzy . c/o of difficulties starting urinating . Flomax restarted . NSS 500 ml bolus adm per new order . Am care and oral care done
--- NOTE | 2023-11-21 09:24 | W.PN.INTV ---
Today's Communication / Plan
Recommendations
Follow hemoglobin
Transfuse as needed
Norepinephrine if needed
Colonoscopy/possible EGD 11/22/2023
Assessment
-
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
GI bleed-lower
Hypotension secondary to acute blood loss
Anemia due to acute blood loss-initial 12.0 and now 11.3
Syncope due to blood loss/hypotension
Leukocytosis-WBC 16.4
Atrial fibrillation on Eliquis
Massive ventral hernia-occurred following partial colon resection
Hyperglycemia-blood sugar 257
Conditions present prior to admission:
Atrial fibrillation on anticoagulation.
Diverticular disease-20 years ago status post partial colectomy
Ventral hernia.
Asthma.
Obstructive sleep apnea on CPAP.
Partial colectomy.
Umbilical hernia repair. Bladder mass excision/ureteral stenting. Cataract.
Plan
Patient remains critically ill with marginal blood pressures potentially requiring norepinephrine
Supplemental oxygen as needed-maintain saturations greater than 92%
Intubated mechanically ventilated if needed
Aspiration precautions
Incentive spirometry encouraged
CPAP-his own at night-tolerating well
Continue to follow hemoglobin
Transfuse packed red blood cells and FFP as needed
Monitor coagulopathy
GI evaluation ongoing-correspondence reviewed
Eliquis held
Kcentra provided
Last colonoscopy 5 years ago-Dr. Gomez at [facility]
Repeat colonoscopy/and possible EGD Wednesday after Eliquis washout
CT abdomen-summarized below
Monitor blood sugar
Insulin supplementation as needed
Check A1c
Complains of some urinary retention, frequency
Resume Flomax if BP improved
DVT prophylaxis-mechanical
GI prophylaxis
Aspiration precautions
Nutrition
Early mobilization
Patient reports follow-up with pulmonary/sleep specialist in [place] for his 'mild asthma' and SHAY/CPAP-tolerant
Critical care statement: A total of 36 minutes of critical care time was provided for this patient today. This includes management of unstable vital signs, management of transfusions, evaluation of the patient at bedside, reviewing the patient's
pertinent medical records including radiographs, pressor management, transfusion management, microbiology, laboratory evaluations, and discussion with primary team, consultants, pharmacy, nutrition, physical therapy, case management, charge nurse,
critical care nursing, and respiratory therapy.
Diagnostic data:
Chest x-ray 11/20/2023-NAD
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
Subjective Dataa
Subjective Data
Date of Service:
Date of Service: November 21, 2023
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
Subjective:
Feels better, no abdominal pain, no further bleeding, no shortness of breath, chest pain or abdominal pain, tolerated CPAP
Review of Systems
General: Other (Per HPI)
Objective Data
Data Reviewed
Vital Signs / I&O / Oxygen:
Vital Signs
Temp Pulse Resp BP Pulse Ox
98.1 F 87 20 131/77 96
11/21/23 07:00 11/21/23 04:30 11/21/23 04:30 11/21/23 04:00 11/21/23 04:30
Intake and Output
11/20/23 11/21/23 11/22/23
06:59 06:59 06:59
Intake Total 4330 / 4330 700 / 700
Output Total 1650 / 1650 275 / 275
Balance 2680 / 2680 425 / 425
SaO2 96
Physical Exam
General: Respiratory Distress (n) and Comfortable
HEENT: Normocephalic, Anicteric, Moist Mucous Membranes and Other (Thick neck)
Cardiovascular: Regular Rhythm and Murmur (n)
Respiratory: Wheeze (n), Crackles (n), Rhonchi (n), Non-Labored Respirations, Accessory Resp Muscle Use (n) and Stridor (n)
GI: Soft, Non Tender and Other (Large hernia)
Neurology: Awake, Alert and No Motor Deficits
Skin: Warm, Good Color, Cyanosis (n), Jaundice (n) and Rash (n)
Labs/Micro/Reports
Lab Data
11/21/23 04:14
Laboratory Results
11/20/23
18:00
APTT Cancelled
[2023-11-21] MEDS: DULCOLAX 10 MG PO (09:35)
[2023-11-21 11:00] LABS: Glucose - Point of Care 112 mg/dl (70-99)
[2023-11-21] MEDS: GAVILAX 238 GM PO (11:34)
[2023-11-21 14:21] LABS: Lactic Acid 2.2 mmol/L (0.7-2.0)
--- NOTE | 2023-11-21 15:01 | PTCARENOTE ---
prep for colonoscopy started around 12:00 At this time patient was able to finish about 1500 cc out of 1999 . No bowel movement at this time/ No melena for this shift. Able to tolerate clear liquid without difficulties.
[2023-11-21 16:53] LABS: Glucose - Point of Care 115 mg/dl (70-99)
[2023-11-21] MEDS: TOPROL XL 50 MG PO (18:55)
[2023-11-21] MEDS: NSS IV (19:26)
--- NOTE | 2023-11-21 20:00 | PTCARENOTE ---
rec`d pt at 1900. AAox3. ST on monitor. HR 120s to 130s. toprol given at shift change by previous RN. PT then in SR, RA POX 99%. diminished BS. large liquid stool- bloody. pt uses urinal. 1x assist to commode for BM. call mendiola in reach. safe
environment maintained.
[2023-11-21] MEDS: FLOMAX 0.4 MG PO (21:25)
[2023-11-21] MEDS: MIRALAX PO (21:25)
[2023-11-21 21:28] LABS: Hemoglobin 9.1 g/dL (13.0-18.0)
[2023-11-21 22:49] LABS: Glucose - Point of Care 101 mg/dl (70-99)
[2023-11-22] VITALS (28 sets, daily range): BP systolic 104–156; BP diastolic 57–140; BMI 35.9
--- NOTE | 2023-11-22 | PTCARENOTE ---
pt reassessed. no changes in pt assessment. call mendiola in reach. pt went to commode 3x. each time had dark bloody liquid stool
[2023-11-22] MEDS: NON-FORMULARY ITEM 325 MG PO ×2 (04:01→14:50)
[2023-11-22 04:25] LABS: Hematocrit 25.3 % (39.0-52.0); Hemoglobin 8.7 g/dL (13.0-18.0); Mean Corp Hgb Conc. 34.4 g/dL (33.0-37.0); Mean Corpuscular Hgb 32.7 pg (27.0-31.0); Mean Corpuscular Volume 95.1 fL (80.0-94.0); Platelet Count 133 10^3/uL (130-400); Red Blood Cell Count 2.66 10^6/uL (4.70-6.10); Red Cell Dist. Width 13.9 % (11.5-14.5); White Blood Cell Count 8.6 10^3/uL (4.8-10.8)
[2023-11-22 04:36] LABS: Lactic Acid 1.6 mmol/L (0.7-2.0)
[2023-11-22 05:06] LABS: Blood Urea Nitrogen 15 mg/dl (9-20); Calcium 8.9 mg/dl (8.4-10.2); Carbon Dioxide 24 mmol/L (22-30); Chloride 109 mmol/L (98-107); Estimated Creatinine Clearance 116 ml/min; Glucose 98 mg/dl (70-99); Magnesium 1.9 mg/dl (1.6-2.3); Phosphorus 2.8 mg/dl (2.5-4.5); Potassium 4.2 mmol/L (3.5-5.1); Sodium 135 mmol/L (135-145); eGFR > 60.00
[2023-11-22] MEDS: MIRALAX PO (07:15)
[2023-11-22 07:56] LABS: Glucose - Point of Care 99 mg/dl (70-99)
--- NOTE | 2023-11-22 08:00 | PTCARENOTE ---
Received patient from shiftman. Patient is AAOx4, pleasant cooperative. He is sinus rhythm on monitor, spot check pulse ox 100% on room air, lungs clear to auscultation. Patient is NPO, has completed colonoscopy prep. Has round abdomen, non
tender to palpation. Has been moving bowels and using urinal appropriately. Patient skin is intact. Right leg has brownish dicoloration. states is baseline. Patient has had hx of afib. Was given Toprol last night, dose this morning held per
[facility]. Will review orders, call mendiola within reach.
[2023-11-22] MEDS: TOPROL XL PO (08:03)
[2023-11-22] MEDS: PROTONIX IV 40 MG IV ×2 (08:06→19:54)
[2023-11-22] MEDS: NSS (PRESERVATIVE FREE) 10 ML IV ×2 (08:06→19:55)
--- NOTE | 2023-11-22 08:55 | W.PN.INTV ---
Today's Communication / Plan
Recommendations
Follow hemoglobin
Transfuse as needed
Norepinephrine if needed
Repeat imaging if patient has recurrence of hematochezia; continue to hold anticoagulation
Assessment
-
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
Impression:
Acute lower GI bleed -suspect diverticular bleed versus AVM
Acute blood loss anemia due to above
Hypotension secondary to acute blood loss
Syncope due to blood loss/hypotension
Leukocytosis
Atrial fibrillation on Eliquis
Massive ventral hernia-occurred following partial colon resection
Hyperglycemia-blood sugar 257
Conditions present prior to admission:
Atrial fibrillation on anticoagulation.
Diverticular disease-20 years ago status post partial colectomy
Ventral hernia.
Asthma.
Obstructive sleep apnea on CPAP.
Partial colectomy.
Umbilical hernia repair. Bladder mass excision/ureteral stenting. Cataract.
Plan
Blood pressure improved and he has not required vasopressors
No obvious source of bleed seen today via EGD or colonoscopy however poor visualization in the colon from blood and stool --> defer to GI regarding repeat scope to assess for active LGIB
Supplemental oxygen as needed-maintain saturations greater than 92%
Aspiration precautions
Incentive spirometry encouraged
Continue with CPAP with sleep
Continue to follow hemoglobin
Transfuse packed red blood cells and FFP as needed
Monitor coagulopathy
GI evaluation ongoing-correspondence reviewed
Eliquis held
Kcentra provided
Last colonoscopy 5 years ago-Dr. Gomze at [facility]
Repeat colonoscopy/and possible EGD Wednesday after Eliquis washout
CT abdomen-summarized below
continue PPI
lower dose of BB to reduce chances of masking acute bleed and also to avoid causing hypotensiob
Monitor blood sugar with goal BG 140-180
Insulin supplementation as needed
Check A1c
Complains of some urinary retention, frequency
Flomax resumed yesterday evening
DVT prophylaxis-mechanical
GI prophylaxis
Aspiration precautions
Nutrition
Early mobilization
Patient reports follow-up with pulmonary/sleep specialist in [place] for his 'mild asthma' and SHAY/CPAP-tolerant
Patient received a unit of PRBC today after endoscopy. Continue to trend CBC. If patient has any recurrence of his bleed then will speak with GI on-call, and consider CTA abdomen/pelvis versus bleeding scan.
Critical care statement: A total of 38 minutes of critical care time was provided for this patient today. This includes management of unstable vital signs, management of transfusions, evaluation of the patient at bedside, reviewing the patient's
pertinent medical records including radiographs, pressor management, transfusion management, microbiology, laboratory evaluations, and discussion with primary team, consultants, pharmacy, nutrition, physical therapy, case management, charge nurse,
critical care nursing, and respiratory therapy.
Diagnostic data:
Chest x-ray 11/20/2023-NAD
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
Subjective Dataa
Subjective Data
Date of Service:
Date of Service: November 22, 2023
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
Subjective:
Patient seen and evaluated today. Went for EGD + colonoscopy today with old blood with clot seen in the colon with visualization difficult. No identifiable source of active bleed was seen. EGD shows no obvious bleeding seen in the stomach or the
duodenum. BP 104/77, heart rate 78 and saturating 99% on room air. Patient feels well. Eager to eat.
Review of Systems
General: Other (Negative unless mentioned above)
Objective Data
Data Reviewed
Vital Signs / I&O / Oxygen:
Vital Signs
Temp Pulse Resp BP Pulse Ox
98 F 84 13 120/77 100
11/22/23 07:59 11/22/23 08:15 11/22/23 08:15 11/22/23 08:00 11/22/23 08:23
Intake and Output
11/21/23 11/22/23 11/23/23
06:59 06:59 06:59
Intake Total 4330 / 4330 3710 / 3710
Output Total 1650 / 1650 1575 / 1575 200 / 200
Balance 2680 / 2680 2135 / 2135 -200 / -200
SaO2 100
Physical Exam
General: Respiratory Distress (n) and Comfortable
HEENT: Normocephalic, Anicteric, Moist Mucous Membranes and Other (Thick neck)
Cardiovascular: S1-S2 and Murmur (n)
Respiratory: Clear, Wheeze (n), Crackles (n), Rhonchi (n), Non-Labored Respirations, Accessory Resp Muscle Use (n) and Stridor (n)
GI: Soft, Distended (Abdominal obesity), Non Tender and Other (Large hernia)
Neurology: Awake, Alert and Tremors (Negative)
Skin: Warm, Dry, Cyanosis (n), Jaundice (n) and Rash (n)
Labs/Micro/Reports
Lab Data
11/22/23 04:12
11/22/23 04:12
--- NOTE | 2023-11-22 10:10 | W.PN.HOSP.TC ---
Today's Communication/Plan
-
s/p GI procedures; 1 unit post procedures and continue ICU care
repeat H/H in evening
if bleeds again, repeat bleeding scan
Assessment / Plan
Assessment / Plan
Assessment:
Lower GI bleed
Acute blood loss anemia
- s/p K-Centra in ER; Eliquis held
- s/p 3 units PBRCs
- s/p EGD: Normal esophagus. Z-line regular, 45 cm from the incisors. Edematous mucosa with mild central dimpling mucosa in the antrum. Biopsied.Normal examined duodenum.
- s/p Colonoscopy: large amount of old blood with clots was found in the entire colon, making visualization difficult. Lavage of the area was performed using greater than 500 mL, resulting in clearance with fair visualization. After extensive
washing, there was no identifiable source of active bleeding, however, there was evidence of predominantly left-sided diverticulosis, with few diverticulum at the hepatic flexure and ascending colon. No AVMs were visualized, however, despite copious
washing of the mucosa, it is possible a small AVM could have been missed. The terminal ileum appeared normal. No blood present in the TI. A few polyps were scattered throughout the colon, no polypectomy attempted given current active GI bleeding.
There was evidence of a prior end-to-side colo-colonic anastomosis at 25 cm proximal to the anus. This was patent and was characterized by healthy appearing mucosa.
Hypotension secondary to GI bleed
Early hemorrhagic shock
- requiring IVF and pressor (Mark-synephrine)
- monitor in ICU further 24 hours
Lactic acidosis - resolved
Leukocytosis
- likely stress reaction; resolved
Hyperglycemia
- SSI
- outpatient A1c (not reliable currently with anemia)
paroxysmal atrial fibrillation
- monitor tele
- hold Eliquis
- continue propafenone
- continue metoprolol with hold parameters
Massive Ventral Hernia
- Patient states this occurred following partial colon resection.
- No current abdominal pain. No significant change in hernia per patient.
- Large ventral abdominal wall hernia containing bowel loops without complication.
DVT Prophylaxis: SCDs
Code: Full
Anticipated Discharge: 24 - 48 hours
Subjective/Interval History
-
Date of Service: November 22, 2023
Hb 8.7
for GI procedures today
Objective Data
-
Labs:
Laboratory Results
11/22/23
04:12
WBC 8.6
Hgb 8.7 L
Hct 25.3 L
Plt Count 133
Sodium 135
Potassium 4.2
Chloride 109 H
Carbon Dioxide 24
BUN 15
Creatinine 0.9
Glucose 98
Calcium 8.9
Vital Signs:
Vital Signs
Temp Pulse Resp BP Pulse Ox
98 F 84 13 120/77 100
11/22/23 07:59 11/22/23 08:15 11/22/23 08:15 11/22/23 08:00 11/22/23 08:23
I&O
11/21/23 11/22/23 11/23/23
06:59 06:59 06:59
Intake Total 4330 / 4330 3710 / 3710
Output Total 1650 / 1650 1575 / 1575 200 / 200
Balance 2680 / 2680 2135 / 2135 -200 / -200
Physical Exam
-
General: No Apparent Distress
HEENT: Normocephalic and Atraumatic
Respiratory: Negative Wheezes or Rales
Cardiac: Regular Rhythm and S1/S2
GI: Soft and Nontender
Genito-urinary: Negative No Costovertebral Tender
Musculoskeletal: No Edema
Neuro: AO x 3
Hematologic / Lymphatic: No Lymphadenopathy
Psych: Calm
Data Reviewed
-
Critical Care Time (in minutes): 42
Labs: Labs Reviewed by me
--- NOTE | 2023-11-22 12:56 | CM ---
CM following re: discharge planning.
Reviewed pt's chart, met with pt.
Pt is a 68 year old male, admitted with primary dx of GI Bleed. Pt reports he feels much much better. IMM reviewed, placed on chart, pt has a copy.
Pt reports he lives with a dog in a 2SH, 1 steps to enter, has no children, has a sister and she lives in [place]. Pt described himself as independent in all areas [employer], drives, retired. No DME, VN or SNF history. Pt reports he has supportive friends.
PCP: Michael Bethea
Pharmacy: [facility].
D/C plan: home with anticipated no needs.
CM will follow with discharge plan updates as hospitalization progresses.
--- NOTE | 2023-11-22 13:07 | PTCARENOTE ---
Patient showed no signs of active bleeding during procedure this morning, Did speak with Dr. Young, giving unit of PRBCs currently. Patient is tolerating. He is on room air, using urinal and has been upgraded to clears. May consider PT/OT
tomorrow.
[2023-11-22 13:12] LABS: Glucose - Point of Care 89 mg/dl (70-99)
[2023-11-22 17:40] LABS: Glucose - Point of Care 92 mg/dl (70-99)
[2023-11-22 18:13] LABS: Hemoglobin 9.1 g/dL (13.0-18.0); Mean Corpuscular Hgb 33.3 pg (27.0-31.0); Mean Corpuscular Volume 95.2 fL (80.0-94.0); Mean Platelet Volume 9.8 fL (7.4-10.4); Platelet Count 115 10^3/uL (130-400); Red Blood Cell Count 2.73 10^6/uL (4.70-6.10); Red Cell Dist. Width 14.2 % (11.5-14.5); White Blood Cell Count 7.4 10^3/uL (4.8-10.8)
--- NOTE | 2023-11-22 18:26 | PTCARENOTE ---
Hgb is stable, may downgrade tomorrow, denies any dizziness, assisted patient OOB to bathroom. tolerating clears
[2023-11-22] MEDS: LOPRESSOR 12.5 MG PO (19:53)
[2023-11-22] MEDS: MIRALAX 17 GRAMS PO (19:54)
[2023-11-22 21:44] LABS: Glucose - Point of Care 93 mg/dl (70-99)
[2023-11-22] MEDS: FLOMAX 0.4 MG PO (21:56)
[2023-11-23] VITALS (22 sets, daily range): BP systolic 96–175; BP diastolic 44–92; BMI 36.0
--- NOTE | 2023-11-23 | PTCARENOTE ---
systems reviewed, pt walked to the BR, had a small BM still bloody but pt stated not as bright as before, pt reports no signs of dizziness when ambulating, urine yellow and clear, otherwise see flowcharts.
[2023-11-23] MEDS: NON-FORMULARY ITEM 325 MG PO ×2 (03:06→16:05)
[2023-11-23 04:17] LABS: Blood Urea Nitrogen 8 mg/dl (9-20); Carbon Dioxide 26 mmol/L (22-30); Chloride 107 mmol/L (98-107); Estimated Creatinine Clearance 116 ml/min; Glucose 98 mg/dl (70-99); Magnesium 1.8 mg/dl (1.6-2.3); Phosphorus 2.7 mg/dl (2.5-4.5); Potassium 3.8 mmol/L (3.5-5.1); Sodium 135 mmol/L (135-145); eGFR > 60.00
[2023-11-23 04:21] LABS: Hematocrit 26.6 % (39.0-52.0); Hemoglobin 9.3 g/dL (13.0-18.0); Mean Corpuscular Hgb 33.2 pg (27.0-31.0); Mean Platelet Volume 10.2 fL (7.4-10.4); Platelet Count 143 10^3/uL (130-400); Red Cell Dist. Width 13.9 % (11.5-14.5); White Blood Cell Count 7.3 10^3/uL (4.8-10.8)
--- NOTE | 2023-11-23 05:50 | PTCARENOTE ---
Assessment unchanged. Safe environment maintained, call mendiola within reach.
[2023-11-23 07:34] LABS: Glucose - Point of Care 101 mg/dl (70-99)
--- NOTE | 2023-11-23 08:40 | W.PN.INTV ---
Today's Communication / Plan
Recommendations
Trend Hb
Transfuse as needed
Repeat imaging if patient has recurrence of hematochezia; continue to hold anticoagulation until deemed safe to resume per GI
Outpatient colonoscopy per GI
Outpatient cardiology follow up
Patient is hemodynamically stable, not actively bleeding with Hb stable since 11/21/2023 - this was confirmed with GI. Safe for downgrade out of ICU to telemetry. Ordained Minister/pulmonary service will now sign off. Please reconsult if there are any
additional questions/concerns, or if patient's respiratory status deteriorates.
Assessment
-
68-year-old male with a history of atrial fibrillation, diverticular disease, asthma, obesity, obstructive sleep apnea who presented with lower GI bleed and syncope-mental health specialist consulted for GI bleed/hypotension/critical care management 11/20/2023.
Impression:
Acute lower GI bleed -suspect diverticular bleed versus AVM vs brisk UGIB in small bowel
Acute blood loss anemia due to above - Hb stable
Hypotension secondary to acute blood loss - BP now normalized
Syncope due to blood loss/hypotension
Leukocytosis - WBC normal since 11/21/2023
Atrial fibrillation on Eliquis
Massive ventral hernia-occurred following partial colon resection
Hyperglycemia- now euglycemic
Conditions present prior to admission:
Atrial fibrillation on anticoagulation.
Diverticular disease-20 years ago status post partial colectomy
Ventral hernia.
Asthma.
Obstructive sleep apnea on CPAP.
Partial colectomy.
Umbilical hernia repair. Bladder mass excision/ureteral stenting. Cataract.
Plan
Blood pressure improved and he continues to be off vasopressors
No obvious source of bleed seen yesterday on EGD or colonoscopy however poor visualization in the colon from blood and stool --> outpatient follow up with GI for repeat colonoscopy to assess bowel given poor visualization on c-scope yesterday
Supplemental oxygen as needed-maintain saturations greater than 92%
Aspiration precautions
Incentive spirometry encouraged
Continue with CPAP with sleep
Continue to trend hemoglobin
Transfuse packed red blood cells and FFP as needed
GI on board - recs appreciated
Eliquis held - resume once stable per GI
Kcentra provided on 11/20/2023
Last colonoscopy 5 years ago-Dr. Gomez at [facility]
CT abdomen-summarized below
Continue reduced dose of BB to reduce chances of masking acute bleed and also to avoid causing hypotension - likely can go home on his usual home dose, and would resume his home dose tomorrow to assure he tolerates this prior to starting it after
discharge
Monitor blood sugar with goal BG 140-180
Insulin supplementation as needed
A1c: 5.5 from today
Complains of some urinary retention, frequency
Flomax resumed on on 11/20 in the evening
DVT prophylaxis-mechanical for now
GI prophylaxis - not indicated as pt stable and is being downgraded from ICU today
Aspiration precautions
Nutrition
Early mobilization
Patient reports follow-up with pulmonary/sleep specialist in [place] for his 'mild asthma' and SHAY/CPAP-tolerant
Patient is hemodynamically stable, not actively bleeding with Hb stable since 11/21/2023 - this was confirmed with GI. Safe for downgrade out of ICU to telemetry. Ordained Minister/pulmonary service will now sign off. Thank you for allowing us to be
involved in the care of this patient. Please reconsult if there are any additional questions/concerns, or if patient's respiratory status deteriorates.
Total time spent today was 55 minutes for this encounter. Time includes reviewing laboratory test/imaging results, reviewing pertinent medical records, obtaining and reviewing medical history, performing an appropriate exam, ordering medications,
tests and procedures. Time also includes documentation of this encounter, coordinating patient care and communicating with other healthcare professionals. Total time does not include separately billed tests performed on this date of service.
Diagnostic data:
Chest x-ray 11/20/2023-NAD
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
Subjective Dataa
Subjective Data
Date of Service:
Date of Service: November 23, 2023
Chief Complaint: Ordained Minister Follow Up and Other (GI bleed)
Subjective:
Pt seen and evaluated this AM. Hb this AM is 9.3. Pt reported loose stool overnight with small amount of old blood - no clots reported. No bloody BM seen this AM. HR this AM is 84 with BP 121/68. On room air this AM. He is tolerating oral diet
without any abdominal pain and he is passing flatus.
Review of Systems
General: Other (Negative unless mentioned above)
Objective Data
Data Reviewed
Vital Signs / I&O / Oxygen:
Vital Signs
Temp Pulse Resp BP Pulse Ox
98.2 F 78 15 111/65 94
11/23/23 08:22 11/23/23 08:55 11/23/23 06:00 11/23/23 08:55 11/23/23 00:25
Intake and Output
11/22/23 11/23/23 11/24/23
06:59 06:59 06:59
Intake Total 3710 / 3710 1910 / 1910 240 / 240
Output Total 1575 / 1575 1570 / 1570
Balance 2135 / 2135 340 / 340 240 / 240
SaO2 94
Physical Exam
General: Respiratory Distress (n), Comfortable and Good Appetite
HEENT: Normocephalic, Anicteric, Moist Mucous Membranes and Other (Thick neck)
Cardiovascular: S1-S2 and Murmur (n)
Respiratory: Clear, Wheeze (n), Crackles (n), Rhonchi (n), Non-Labored Respirations, Accessory Resp Muscle Use (n) and Stridor (n)
GI: Soft, Distended (Abdominal obesity), Non Tender and Other (Large hernia; normoactive bowel sounds)
Neurology: AO x 3 and Tremors (Negative)
Skin: Warm, Dry, Cyanosis (n), Jaundice (n) and Rash (n)
Labs/Micro/Reports
Lab Data
11/23/23 03:29
11/23/23 03:29
[2023-11-23] MEDS: PROTONIX IV 40 MG IV (08:55)
[2023-11-23] MEDS: LOPRESSOR 12.5 MG PO (08:55)
[2023-11-23] MEDS: NSS (PRESERVATIVE FREE) 10 ML IV (08:55)
--- NOTE | 2023-11-23 09:35 | PTCARENOTE ---
patient ambulates in room. Diet changed to Low Residual . AAO x3 Denies pain . Denies bloody stool . Voiding without difficulties
--- NOTE | 2023-11-23 09:46 | W.PN.UPDATE ---
Update Note
Progress Note Update
Patient wanted Miralax BID stopped at this time. He should be on at least daily as he had stool throughout his colon and will need repeat colonoscopy as an outpatient for removal of polyps seen on colonoscopy that could not be removed at this time.
Discussed with RN.
[2023-11-23] MEDS: MIRALAX 17 GRAMS PO (10:50)
--- NOTE | 2023-11-23 10:57 | PN.CDI ---
CDI
- -
CDI:
Physician Documentation Request
Admit Date: 11/20/23 06:47
Dear Doctor Fabiola,
Patient admitted with lower GI bleed.
11/21 PN, 'Acute blood loss anemia...s/p K-Centra in ER; Eliquis held.'
Home medications include Eliquis.
Please clarify the likely relationship between these conditions:
Yes, acute blood loss anemia is associated with/ enhanced by Eliquis.
No, acute blood loss anemia is not associated with/ enhanced by Eliquis but it is due to ___. (Please specify)
Unable to determine
Use of terms such as suspected, likely, concern for, or probable (associated with a specific diagnosis that is being evaluated, monitored, or treated as if it exists) are acceptable and can be coded in the inpatient setting, when documented at the
time of discharge.
Thank you,
Hilda SUGGS,RN,CCDS
CDI Specialist
Available via tiger text
Please use your independent medical judgment in providing your response.
[2023-11-23 11:12] LABS: Glycohemoglobin (HgbA1c) 5.5 % (4.0-5.6)
--- NOTE | 2023-11-23 13:52 | W.PN.GI.CBS2 ---
Today's Communication / Plan
-
Monitor CBC, if stable hemoglobin okay to resume eliquis tomorrow
Assessment / Plan
-
Vu Sinha is a 68-year-old male with past medical history of diverticulitis status post partial colectomy 20 years ago, bladder mass excision/ureteral stenting, A-fib on Eliquis, ventral hernia who presented to [facility] early this
morning with large-volume hematochezia and possible syncope, reports he lost consciousness prior to EMS arrival. On arrival to the ED he was noted to be hypotensive with blood pressures in the 70s over 50s, tachycardic in the 90s to 100s, initial
hemoglobin was 12.
-CTA negative for active GI bleeding, shows moderate diffuse colonic stool burden with scattered probable intraluminal blood products; Large ventral abdominal wall hernia containing bowel loops without complication.
-EGD (11/21): Findings:
The examined esophagus was normal.
The Z-line was regular and was found 45 cm from the incisors.
Localized mild mucosal changes characterized by edematous mucosa with mild central dimpling were found in the gastric antrum, possible
pancreatic rest vs. gastritis. Biopsies were taken with a cold forceps for histology and to rule out H. pylori.
The exam of the stomach was otherwise normal.
The examined duodenum was normal.
-Colonoscopy (11/21): A large amount of old blood with clots was found in the entire colon,
making visualization difficult. Lavage of the area was performed using
greater than 500 mL, resulting in clearance with fair visualization.
After extensive washing, there was no identifiable source of active
bleeding, however, there was evidence of predominantly left-sided
diverticulosis, with few diverticulum at the hepatic flexure and
ascending colon. No AVMs were visualized, however, despite copious
washing of the mucosa, it is possible a small AVM could have been missed.
The terminal ileum appeared normal. No blood present in the TI.
A few polyps were scattered throughout the colon, no polypectomy
attempted given current active GI bleeding.
There was evidence of a prior end-to-side colo-colonic anastomosis at 25
cm proximal to the anus. This was patent and was characterized by
healthy appearing mucosa.
#LGIB-- suspect 2/2 diverticular bleeding vs. AVM vs. Dieulafoy
-he has received a total of 3 units of PRBC since admission
-can d/c pantoprazole
-s/p EGD and Colonoscopy on 11/21-- old blood noted throughout the colon without identifiable source of bleeding; no blood in TI. Predominantly left-sided diverticulum, however, he did have a few at the hepatic flexure and ascending colon. Fair
visualization after copious washing, but it is possible there was a smaller AVM that was missed.
-hemoglobin stable at 9.3 this morning
-okay for low residue diet
-if hemoglobin is stable tomorrow, okay to resume eliquis and discharge from a GI perspective
-will need repeat colonoscopy, as an outpatient, for CRC screening, as polyps were noted on colonoscopy that were not removed
Subjective
Subjective
Date of Service: November 23, 2023
Vu Sinha was seen in follow-up this morning, hemoglobin stable at 9.3. Following his colonoscopy I transfused him with 1 unit of blood as he had copious amounts of blood throughout the colon. PM. hemoglobin pending. No episodes of bleeding
overnight.
Objective
Data Reviewed
Laboratory Data:
Laboratory Results
11/23/23 03:29
Laboratory Results
PT 17.0 Sec (11.4-14.6) H 11/20/23 05:33
INR 1.41 11/20/23 05:33
APTT Cancelled 11/20/23 18:00
Phosphorus 2.7 mg/dl (2.5-4.5) 11/23/23 03:29
Magnesium 1.8 mg/dl (1.6-2.3) 11/23/23 03:29
Total Bilirubin 0.6 mg/dl (0.2-1.3) 11/20/23 05:33
AST 26 U/L (17-59) 11/20/23 05:33
ALT 33 U/L (0-50) 11/20/23 05:33
Alkaline Phosphatase 69 U/L (38-126) 11/20/23 05:33
Vital Signs and I&O:
Vital Signs
Temp Pulse Resp BP Pulse Ox
98.2 F 78 13 124/68 94
11/23/23 12:38 11/23/23 09:00 11/23/23 09:00 11/23/23 09:00 11/23/23 00:25
I&O
11/22/23 11/23/23 11/24/23
06:59 06:59 06:59
Intake Total 3710 / 3710 1910 / 1910 240 / 240
Output Total 1575 / 1575 1570 / 1570 800 / 800
Balance 2135 / 2135 340 / 340 -560 / -560
Physical Exam
Physical Exam
GENERAL: In no acute distress, appears comfortable
ABDOMEN: +BS; soft, non-tender and non-distended; +large ventral hernia
--- NOTE | 2023-11-23 14:12 | W.PN.HOSP.TC ---
Today's Communication/Plan
-
transfer to floors
resume Eliquis in AM
Assessment / Plan
Assessment / Plan
Assessment:
Lower GI bleed
Acute blood loss anemia, enhanced by Eliquis
- s/p K-Centra in ER; Eliquis held
- s/p 4 units PBRCs
- s/p EGD: Normal esophagus. Z-line regular, 45 cm from the incisors. Edematous mucosa with mild central dimpling mucosa in the antrum. Biopsied.Normal examined duodenum.
- s/p Colonoscopy: large amount of old blood with clots was found in the entire colon, making visualization difficult. Lavage of the area was performed using greater than 500 mL, resulting in clearance with fair visualization. After extensive
washing, there was no identifiable source of active bleeding, however, there was evidence of predominantly left-sided diverticulosis, with few diverticulum at the hepatic flexure and ascending colon. No AVMs were visualized, however, despite copious
washing of the mucosa, it is possible a small AVM could have been missed. The terminal ileum appeared normal. No blood present in the TI. A few polyps were scattered throughout the colon, no polypectomy attempted given current active GI bleeding.
There was evidence of a prior end-to-side colo-colonic anastomosis at 25 cm proximal to the anus. This was patent and was characterized by healthy appearing mucosa.
- will require repeat Colonoscopy outpatient
Hypotension secondary to GI bleed
Early hemorrhagic shock
- resolved, now off fluids/pressors
Lactic acidosis - resolved
Leukocytosis
- likely stress reaction; resolved
Hyperglycemia
- SSI
- outpatient A1c (not reliable currently with anemia)
paroxysmal atrial fibrillation
- monitor tele
- hold Eliquis
- continue propafenone
- continue metoprolol with hold parameters
Massive Ventral Hernia
- Patient states this occurred following partial colon resection.
- No current abdominal pain. No significant change in hernia per patient.
- Large ventral abdominal wall hernia containing bowel loops without complication.
DVT Prophylaxis: SCDs
Code: Full
Anticipated Discharge: 24 - 48 hours
Subjective/Interval History
-
Date of Service: November 23, 2023
Hb stable 9.3
no overnight bleeding
Objective Data
-
Labs:
Laboratory Results
11/23/23 11/23/23
03:29 14:00
WBC 7.3 Pending
Hgb 9.3 L Pending
Hct 26.6 L Pending
Plt Count 143 D Pending
Sodium 135
Potassium 3.8
Chloride 107
Carbon Dioxide 26
BUN 8 L
Creatinine 0.9
Glucose 98
Calcium 9.0
Vital Signs:
Vital Signs
Temp Pulse Resp BP Pulse Ox
98.2 F 78 13 124/68 94
11/23/23 12:38 11/23/23 09:00 11/23/23 09:00 11/23/23 09:00 11/23/23 00:25
I&O
11/22/23 11/23/23 11/24/23
06:59 06:59 06:59
Intake Total 3710 / 3710 1910 / 1910 240 / 240
Output Total 1575 / 1575 1570 / 1570 800 / 800
Balance 2135 / 2135 340 / 340 -560 / -560
Physical Exam
-
General: No Apparent Distress
HEENT: Normocephalic and Atraumatic
Respiratory: Negative Wheezes
Cardiac: Regular Rhythm and S1/S2
GI: Soft
Genito-urinary: No Costovertebral Tender
Musculoskeletal: No Edema
Neuro: AO x 3
Hematologic / Lymphatic: No Lymphadenopathy
Psych: Calm
Data Reviewed
-
Total Time Spent with Patient (in minutes): 45
Labs: Labs Reviewed by me
[2023-11-23 15:09] LABS: Hematocrit 26.4 % (39.0-52.0); Hemoglobin 9.2 g/dL (13.0-18.0); Mean Corp Hgb Conc. 34.8 g/dL (33.0-37.0); Mean Corpuscular Hgb 33.2 pg (27.0-31.0); Mean Corpuscular Volume 95.3 fL (80.0-94.0); Mean Platelet Volume 9.9 fL (7.4-10.4); Platelet Count 124 10^3/uL (130-400); Red Blood Cell Count 2.77 10^6/uL (4.70-6.10); Red Cell Dist. Width 14.1 % (11.5-14.5); White Blood Cell Count 6.3 10^3/uL (4.8-10.8)
--- NOTE | 2023-11-23 19:16 | PTCARENOTE ---
Rn extension course coordinator- Verbal report obtained from So in ICU.
[2023-11-23] MEDS: FLOMAX 0.4 MG PO (20:22)
[2023-11-23 20:27] LABS: Glucose - Point of Care 134 mg/dl (70-99)
--- NOTE | 2023-11-23 20:30 | PTCARENOTE ---
Received pt from ICU via bed. AAOx3, no complaints at this time. Oriented pt to floor, call mendiola within reach.
[2023-11-24] MEDS: NON-FORMULARY ITEM 325 MG PO ×2 (02:28→14:07)
[2023-11-24 03:09] VITALS: BP 129/58
[2023-11-24 07:30] VITALS: BP 123/72
[2023-11-24 08:04] LABS: Hematocrit 25.3 % (39.0-52.0); Hemoglobin 8.6 g/dL (13.0-18.0); Mean Corpuscular Volume 94.1 fL (80.0-94.0); Mean Platelet Volume 10.5 fL (7.4-10.4); Platelet Count 127 10^3/uL (130-400); Red Blood Cell Count 2.69 10^6/uL (4.70-6.10); Red Cell Dist. Width 14.5 % (11.5-14.5); White Blood Cell Count 5.4 10^3/uL (4.8-10.8)
[2023-11-24 08:31] LABS: Blood Urea Nitrogen 8 mg/dl (9-20); Calcium 8.9 mg/dl (8.4-10.2); Carbon Dioxide 26 mmol/L (22-30); Chloride 107 mmol/L (98-107); Estimated Creatinine Clearance 116 ml/min; Glucose 91 mg/dl (70-99); Potassium 3.5 mmol/L (3.5-5.1); Sodium 135 mmol/L (135-145); eGFR > 60.00
[2023-11-24] MEDS: MIRALAX 17 GRAMS PO (08:40)
[2023-11-24] MEDS: TOPROL XL 50 MG PO (08:40)
[2023-11-24 10:08] LABS: Phosphorus 2.8 mg/dl (2.5-4.5)
--- NOTE | 2023-11-24 11:02 | W.PN.HOSP.TC ---
Today's Communication/Plan
-
repeat PM Hb if stable, resume Eliquis and discharge to OP GI f/u
Assessment / Plan
Assessment / Plan
Assessment:
Lower GI bleed
Acute blood loss anemia, enhanced by Eliquis
- s/p K-Centra in ER; Eliquis held
- s/p 4 units PBRCs
- s/p EGD: Normal esophagus. Z-line regular, 45 cm from the incisors. Edematous mucosa with mild central dimpling mucosa in the antrum. Biopsied.Normal examined duodenum.
- s/p Colonoscopy: large amount of old blood with clots was found in the entire colon, making visualization difficult. Lavage of the area was performed using greater than 500 mL, resulting in clearance with fair visualization. After extensive
washing, there was no identifiable source of active bleeding, however, there was evidence of predominantly left-sided diverticulosis, with few diverticulum at the hepatic flexure and ascending colon. No AVMs were visualized, however, despite copious
washing of the mucosa, it is possible a small AVM could have been missed. The terminal ileum appeared normal. No blood present in the TI. A few polyps were scattered throughout the colon, no polypectomy attempted given current active GI bleeding.
There was evidence of a prior end-to-side colo-colonic anastomosis at 25 cm proximal to the anus. This was patent and was characterized by healthy appearing mucosa.
- will require repeat Colonoscopy outpatient
Hypotension secondary to GI bleed
Early hemorrhagic shock
- resolved, now off fluids/pressors
Lactic acidosis - resolved
Leukocytosis
- likely stress reaction; resolved
Hyperglycemia
- SSI
- outpatient A1c (not reliable currently with anemia)
paroxysmal atrial fibrillation
- monitor tele
- hold Eliquis
- continue propafenone
- continue metoprolol with hold parameters
Massive Ventral Hernia
- Patient states this occurred following partial colon resection.
- No current abdominal pain. No significant change in hernia per patient.
- Large ventral abdominal wall hernia containing bowel loops without complication.
DVT Prophylaxis: SCDs
Code: Full
Anticipated Discharge: Within 24 hours
Subjective/Interval History
-
Date of Service: November 24, 2023
no further bleeding
Hb 8.6 this AM, repeat at 1 pm pending
Objective Data
-
Labs:
Laboratory Results
11/24/23 11/24/23
06:14 14:00
WBC 5.4
Hgb 8.6 L Pending
Hct 25.3 L Pending
Plt Count 127 L
Sodium 135
Potassium 3.5
Chloride 107
Carbon Dioxide 26
BUN 8 L
Creatinine 0.9
Glucose 91
Calcium 8.9
Vital Signs:
Vital Signs
Temp Pulse Resp BP Pulse Ox
98.3 F 98 18 123/72 95
11/24/23 07:30 11/24/23 08:40 11/24/23 07:30 11/24/23 08:40 11/24/23 03:09
I&O
11/23/23 11/24/23 11/25/23
06:59 06:59 06:59
Intake Total 1910 / 1910 240 / 240
Output Total 1570 / 1570 1900 / 1900
Balance 340 / 340 -1660 / -1660
Physical Exam
-
General: No Apparent Distress
HEENT: Normocephalic and Atraumatic
Respiratory: Negative Wheezes
Cardiac: Regular Rhythm and S1/S2
GI: Soft
Genito-urinary: No Costovertebral Tender
Neuro: AO x 3
Psych: Calm
Data Reviewed
-
Total Time Spent with Patient (in minutes): 45
Labs: Labs Reviewed by me
[2023-11-24 11:16] VITALS: BP 115/69
--- NOTE | 2023-11-24 11:45 | CM ---
Patient seen at bedside.
Will have repeat PM Hgb.
Note states d/c to OP GI f/u
No anticipated needs.
PLAN: Discharge to home when stable. No needs.
--- NOTE | 2023-11-24 12:43 | W.PN.GI.CBS2 ---
Today's Communication / Plan
-
Repeat afternoon H&H
Assessment / Plan
-
Vu Sinha is a 68-year-old male with past medical history of diverticulitis status post partial colectomy 20 years ago, bladder mass excision/ureteral stenting, A-fib on Eliquis, ventral hernia who presented to [facility] early this
morning with large-volume hematochezia and possible syncope, reports he lost consciousness prior to EMS arrival. On arrival to the ED he was noted to be hypotensive with blood pressures in the 70s over 50s, tachycardic in the 90s to 100s, initial
hemoglobin was 12.
-CTA negative for active GI bleeding, shows moderate diffuse colonic stool burden with scattered probable intraluminal blood products; Large ventral abdominal wall hernia containing bowel loops without complication.
-EGD (11/21): Findings:
The examined esophagus was normal.
The Z-line was regular and was found 45 cm from the incisors.
Localized mild mucosal changes characterized by edematous mucosa with mild central dimpling were found in the gastric antrum, possible
pancreatic rest vs. gastritis. Biopsies were taken with a cold forceps for histology and to rule out H. pylori.
The exam of the stomach was otherwise normal.
The examined duodenum was normal.
-Colonoscopy (11/21): A large amount of old blood with clots was found in the entire colon,
making visualization difficult. Lavage of the area was performed using
greater than 500 mL, resulting in clearance with fair visualization.
After extensive washing, there was no identifiable source of active
bleeding, however, there was evidence of predominantly left-sided
diverticulosis, with few diverticulum at the hepatic flexure and
ascending colon. No AVMs were visualized, however, despite copious
washing of the mucosa, it is possible a small AVM could have been missed.
The terminal ileum appeared normal. No blood present in the TI.
A few polyps were scattered throughout the colon, no polypectomy
attempted given current active GI bleeding.
There was evidence of a prior end-to-side colo-colonic anastomosis at 25
cm proximal to the anus. This was patent and was characterized by
healthy appearing mucosa.
#LGIB-- suspect 2/2 diverticular bleeding vs. AVM vs. Dieulafoy
-he has received a total of 3 units of PRBC since admission
-s/p EGD and Colonoscopy on 11/21-- old blood noted throughout the colon without identifiable source of bleeding; no blood in TI. Predominantly left-sided diverticulum, however, he did have a few at the hepatic flexure and ascending colon. Fair
visualization after copious washing, but it is possible there was a smaller AVM that was missed.
-hemoglobin slightly lower this morning, 8.6 from 9.2 yesterday, without signs of ongoing GI bleeding
-recommend repeat H&H in early afternoon to determine if we can resume eliquis and if patient safe for discharge, once it returns, can determine next steps in management
-will need repeat colonoscopy, as an outpatient, for CRC screening, as polyps were noted on colonoscopy that were not removed
Subjective
Subjective
Date of Service: November 24, 2023
Patient seen in follow-up this morning, no BMs overnight. Morning hemoglobin level 8.6, down from 9.2 yesterday. He feels well, offers no complaints.
Objective
Data Reviewed
Laboratory Data:
Laboratory Results
11/24/23 14:00
11/24/23 06:14
Laboratory Results
PT 17.0 Sec (11.4-14.6) H 11/20/23 05:33
INR 1.41 11/20/23 05:33
APTT Cancelled 11/20/23 18:00
Phosphorus 2.8 mg/dl (2.5-4.5) 11/24/23 06:14
Magnesium 2.0 mg/dl (1.6-2.3) 11/24/23 06:14
Total Bilirubin 0.6 mg/dl (0.2-1.3) 11/20/23 05:33
AST 26 U/L (17-59) 11/20/23 05:33
ALT 33 U/L (0-50) 11/20/23 05:33
Alkaline Phosphatase 69 U/L (38-126) 11/20/23 05:33
Vital Signs and I&O:
Vital Signs
Temp Pulse Resp BP Pulse Ox
98.7 F 85 20 115/69 98
11/24/23 11:16 11/24/23 11:16 11/24/23 11:16 11/24/23 11:16 11/24/23 11:16
I&O
11/23/23 11/24/23 11/25/23
06:59 06:59 06:59
Intake Total 1910 / 1910 240 / 240
Output Total 1570 / 1570 1900 / 1900
Balance 340 / 340 -1660 / -1660
Physical Exam
Physical Exam
GENERAL: In no acute distress, appears comfortable
ABDOMEN: +BS; soft, non-tender and non-distended; +large ventral hernia
[2023-11-24 13:39] LABS: Hematocrit 25.6 % (39.0-52.0); Hemoglobin 8.8 g/dL (13.0-18.0)
--- NOTE | 2023-11-24 13:47 | W.DS.TRANS ---
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
-
Discharge Instructions:
Discharge Diagnosis/Procedures lower GI bleed, anemia, requiring 4 units blood
and EGD/colonoscopy
Diet Low Residue
Activity As tolerated
Instructions:
Stand-Alone Forms:
Changes to Home Medications: No
Discharge Medications:
DC Medications w/original date entered in [facility]
apixaban 5 mg tablet (Eliquis) 5 mg PO BID Blood Clot Prevention/Tx 11/20/23
propafenone 325 mg capsule,extended release 12 hr 325 mg PO Q12H Arrhythmia 11/20/23
tamsulosin 0.4 mg capsule 0.4 mg PO 1XD Urinary Issue 11/20/23
metoprolol succinate 50 mg tablet,extended release 24 hr 50 mg PO DAILY Blood Pressure 11/21/23
polyethylene glycol 3350 17 gram oral powder packet (HealthyLax) 17 g PO DAILY #30 ea 11/24/23
Home Medication Changes
Pending Results: No
Total time spent discharging patient (in min): 42
[2023-11-24 15:09] VITALS: BP 155/79
== END 2023-11-24 14:55 | disposition home or self-care (01) | DRG 377 ==
LOC: 4 EAST ACU 06:47
PROVIDERS: Internal Medicine; Internal Medicine Critical Care Medicine; ADMITTING PHYSICIAN Hospitalist; ATTENDING PHYSICIAN Internal Medicine; CONSULT PHYSICIAN Internal Medicine; CONSULT PHYSICIAN Internal Medicine Critical Care Medicine; EMERGENCY PHYSICIAN Emergency Medicine
PROC: 30283B1 Transfusion of Nonautologous 4-Factor Prothrombin Complex Concentrate into Vein, Percutaneous Approach (ICD-10-PCS; 2023-11-20)
PROC: 30233N1 Transfusion of Nonautologous Red Blood Cells into Peripheral Vein, Percutaneous Approach (ICD-10-PCS; 2023-11-20)
PROC: 0DB78ZX Excision of Stomach, Pylorus, Via Natural or Artificial Opening Endoscopic, Diagnostic (ICD-10-PCS; 2023-11-22)
PROC: 0DJD8ZZ Inspection of Lower Intestinal Tract, Via Natural or Artificial Opening Endoscopic (ICD-10-PCS; 2023-11-22)
PROC: 5A09357 Assistance with Respiratory Ventilation, Less than 24 Consecutive Hours, Continuous Positive Airway Pressure (ICD-10-PCS; 2023-11-23)
DX: K92.1 Melena (principal); R57.8 Other shock; D62 Acute posthemorrhagic anemia; D68.32 Hemorrhagic disorder due to extrinsic circulating anticoagulants; E87.20 Acidosis, unspecified; I10 Essential (primary) hypertension; J45.909 Unspecified asthma, uncomplicated; E66.9 Obesity, unspecified; Z68.35 Body mass index [BMI] 35.0-35.9, adult; I95.89 Other hypotension; K43.9 Ventral hernia without obstruction or gangrene; T45.515A Adverse effect of anticoagulants, initial encounter; I48.0 Paroxysmal atrial fibrillation; G47.33 Obstructive sleep apnea (adult) (pediatric); E78.00 Pure hypercholesterolemia, unspecified; D72.829 Elevated white blood cell count, unspecified; K31.89 Other diseases of stomach and duodenum; K57.30 Diverticulosis of large intestine without perforation or abscess without bleeding; K63.5 Polyp of colon; R73.9 Hyperglycemia, unspecified; Z79.01 Long term (current) use of anticoagulants; Z79.899 Other long term (current) drug therapy; Z87.19 Personal history of other diseases of the digestive system; Z90.49 Acquired absence of other specified parts of digestive tract; Z91.041 Radiographic dye allergy status
CPT/HCPCS: 88305; 36430; 71045; 74174; 80048; 80053; 82077; 82962; 83036; 83605; 83735; 84100; 85014; 85018; 85025; 85027; 85610; 85730; 86850; 86900; 86901; 86920; 88342; 93005; 96361; 96374; 96375; 99291; 99292; J7168; P9016; Q9967

== ENCOUNTER 2023-11-25 04:07 | Inpatient (IN) | payer MEDICARE, BC, SELFPAY ==
[2023-11-24 22:51] VITALS: BP 140/77
[2023-11-24 22:55] VITALS: BMI 36.1
[2023-11-24 23:00] VITALS: BP 125/75
[2023-11-24 23:13] LABS: % Basophils 0.6 % (0-2); % Eosinophils 4.2 % (0-6); % Immature Granulocytes 0.9 % (0-0.5); % Monocytes 7.7 % (1.7-9.3); % Neutrophils 73.6 % (42.2-75.2); Absolute Basophils 0.1 10^3/uL (0-0.2); Absolute Eosinophils 0.3 10^3/uL (0-0.7); Absolute Immature Granulocytes 0.1 10^3/uL (0-0.05); Absolute Monocytes 0.6 10^3/uL (0.1-0.6); Absolute Neutrophils 5.7 10^3/uL (1.4-6.5); Hematocrit 24.2 % (39.0-52.0); Hemoglobin 8.6 g/dL (13.0-18.0); Mean Corp Hgb Conc. 35.5 g/dL (33.0-37.0); Mean Corpuscular Hgb 32.8 pg (27.0-31.0); Mean Corpuscular Volume 92.4 fL (80.0-94.0); Mean Platelet Volume 10.3 fL (7.4-10.4); Nucleated Red Blood Cells % 0 % (-); Platelet Count 151 10^3/uL (130-400); Red Blood Cell Count 2.62 10^6/uL (4.70-6.10); Red Cell Dist. Width 14.6 % (11.5-14.5); White Blood Cell Count 7.8 10^3/uL (4.8-10.8)
[2023-11-24 23:24] LABS: APTT 31.2 Sec (23.4-35.0); INR 1.24; PT 15.6 Sec (11.4-14.6)
[2023-11-24 23:32] LABS: ALT (SGPT) 33 U/L (0-50); AST (SGOT) 32 U/L (17-59); Alkaline Phosphatase 66 U/L (38-126); Blood Urea Nitrogen 14 mg/dl (9-20); Calcium 9.3 mg/dl (8.4-10.2); Carbon Dioxide 26 mmol/L (22-30); Chloride 107 mmol/L (98-107); Estimated Creatinine Clearance 105 ml/min; Glucose 116 mg/dl (70-99); Sodium 135 mmol/L (135-145); Total Bilirubin 0.3 mg/dl (0.2-1.3); Total Protein 5.3 g/dl (6.3-8.2); eGFR > 60.00
[2023-11-25] VITALS (86 sets, daily range): BP systolic 64–171; BP diastolic 36–116; BMI 36.1; BMI 35.6
--- NOTE | 2023-11-25 01:18 | ED.GENMED ---
History of Present Illness
General
Chief Complaint: Rectal Bleeding
Source: patient, previous radiology exam and previous hospital records
Exam Limitations: none
Time Seen by Provider: 11/25/23 00:24
Nursing documentation reviewed up to this point in time: agreed with
History of Present Illness
History of Present Illness:
The patient is a pleasant 68-year-old man with a past medical history of atrial fibrillation who was just discharged from the hospital yesterday after experiencing blood loss anemia from a lower GI bleed. Patient underwent blood transfusion, as
well as a CT angiogram, EGD and colonoscopy. No source of the bleeding was found. Patient was discharged yesterday and got home around 4 PM. Patient reports he was instructed to restart his Eliquis which he did shortly after getting home. He
reports that about 4 hours ago, he developed mild abdominal cramping in his lower abdomen and passed a large amount of dark red blood in the toilet bowl mixed with loose stool. Patient reports this happened 1 time. Patient is still having mild
lower abdominal cramping. Patient denies fever, chest pain or shortness of breath. He does report he felt lightheaded, which made him nervous because he lives alone.
Past History
Past History
ED Past Medical History: Arrthythmia (Atrial fibrillation), HTN, Hypercholesterolemia and Other (Diverticulitis/diverticulosis)
ED Past Surgical History: Other
Social History
Tobacco: Other
Alcohol: Other
Drug: None
Personal: Single
Living: alone
Employment: Other
Family History
Family History: Other
Review of Systems
Review of Systems
Allergies reviewed?: Yes
Other source history: other (Hospital records from [place])
All Other Systems: ROS reviewed and negative except as documented in HPI and ROS
Constitutional: Reports no symptoms
EENT: Reports no symptoms
Respiratory: Reports no symptoms
Cardiac: Reports syncope (Presyncopal)
ABD/GI: Reports abdominal pain and bloody stools
: Reports no symptoms
Musculoskeletal: Reports no symptoms
Skin: Reports no symptoms
Neurological: Reports no symptoms
Endocrine: Reports no symptoms
Hematologic/Lymphatic: Reports no symptoms
Psychiatric: Reports no symptoms
Phy Exam
Physical Exam
Physical Exam:
Physical Exam
General: Patient appears slightly pale, is lying on his side but is fully awake and conversational
Neck: supple. no meningeal signs. normal psoterior pharynx
Heart: s1/s2 regular rate and rhythm, no murmur. equal radial pulses.
Lungs: no acute respiratory distress. clear bilaterally
Abdomen: Soft throughout. Large hernia which is nontender to the touch. Mild lower abdominal tenderness on exam. On rectal exam, patient has liquid dark red blood in perianal area but no drainage of blood out of rectum
Neuro: alert and oriented. no focal neurological deficits
Skin: no rash
Psychiatric: well kept. interactive and cooperative
Extremities: no edema. no calf tenderness. negative homans. good distal pulses
Course
Orders/Labs/Results
Orders:
Orders
11/24/23 22:58
Cardiac Monitoring- Treatment ONCE
IV Insert/Care/Rem.- Treatment PRN
O2 Therapy [RESP] Urgent
Titrate/Wean O2 to maintain O2 sat greater than (%): 93
Special Instructions: MAINTAIN CONTINOUS O2 SATS > OR = 93%
Pulse Ox/spot Check [RESP] Urgent
Quantity: 1
Special Instructions: ON ROOM AIR
11/24/23 23:02
Type+Screen Routine
BBK Wristband Number:
Complete Blood Count/With Diff Urgent
Comprehensive Metabolic Panel Urgent
PTT Urgent
Prothrombin Time Urgent
11/25/23 01:15
0.9% Sodium Chloride 1000 ml [Nss] 1,000 ml IV BOLUS
11/25/23 01:35
Electrocardiogram (*1) Urgent
Reason for Study: Vertigo / Dizzy
EKG- Treatment ONCE
11/25/23 02:13
IV Insert/Care/Rem.- Treatment PRN
11/25/23 02:16
H&H Urgent
11/25/23 02:17
* Blood Bank Products Urgent
'senthil Orders: Grace
Blood Bank Products: *Packed RBC Leuko(PRBC's)
Quantity: 3
Transfuse Today: Yes
Reason: Bleeding
IV Insert/Care/Rem.- Treatment PRN
11/25/23 02:18
0.9% Sodium Chloride 1000 ml [Nss] 1,000 ml IV BOLUS
11/25/23 02:21
CT Abd/pelvis Angio W/wo Iv Urgent
Comment:
Reason For Exam: massive GI bleed
11/25/23 02:25
Diphenhydramine [Benadryl] 50 mg IV NOW STA
Hydrocortisone Sod Succinate [Solu-Cortef] 200 mg IV NOW STA
11/25/23 02:31
Prothrombin Complex(Pcc),Human [Kcentra] 2,500 unit Empty Viaflex Container 100 ml [Viaflex Empty Container] 100 ml IV NOW
11/25/23 03:00
Flush (0.9% Sodium Chloride) [Flush (Nss)] See Dose Instructions IV PER PROTOCOL
11/25/23 03:06
Admit/Transfer Patient As Directed
Co-Sign Provider:
Level of Care: Inpatient admission
Assign to:: ICU
Physician / Group: Micah
Diagnosis: Acute Lower GI Bleed
Reason for Hospitalization: Acute Lower GI Bleed
Expected length of stay greater than two midnights?: Yes
ELOS- Estimated Length of Stay in days: 4
I certify the patient meets the requirements for IP care: Yes
PRN Pain Medication Management As Directed
May give lesser potent ordered pain med per pt: Yes
preference::
Protocol:: Medication orders for pain may be administered in a
manner that supports deferring to patient preference
when the pt is:
- Requesting an ordered lesser potent pain medication.
Least to most potent pain medications are defined
as: acetaminophen < NSAID < tramadol < opioids
(morphine, oxycodone, hydromorphone).
- Requesting a lesser dose of the same medication IF
ORDERED.
- Requesting a less intrusive route of administration
if both routes are prescribed by the provider (PO <
IV).
11/25/23 03:07
Code Status As Directed
Resuscitation Status: Full Code
11/25/23 03:36
Consult Interventional Radiology [IRAD CONSULT] Urgent
Consulting Provider: Cliff Cohen
Was physician already notified: Yes
Reason for Consult/Procedure: massive gi bleed
Acknowledgement that appropriate orders are entered: Yes
Abnormal Lab Results
11/24/23 11/25/23
23:02 02:16
RBC 2.62 L 10^6/uL
(4.70-6.10)
Hgb 8.6 L g/dL 7.3 L g/dL
(13.0-18.0) (13.0-18.0)
Hct 24.2 L % 21.1 L %
(39.0-52.0) (39.0-52.0)
MCH 32.8 H pg
(27.0-31.0)
RDW 14.6 H %
(11.5-14.5)
Abs Immat Gran (auto) 0.1 H 10^3/uL
(0-0.05)
Absolute Lymphs (auto) 1.0 L 10^3/uL
(1.2-3.4)
Immature Gran % 0.9 H %
(0-0.5)
Lymphocytes % 13.0 L %
(20.5-51.1)
PT 15.6 H Sec
(11.4-14.6)
Glucose 116 H mg/dl
(70-99)
Total Protein 5.3 L g/dl
(6.3-8.2)
Albumin 3.0 L g/dl
(3.5-5.0)
Crossmatch IS Only See Detail
11/25/23 02:16
11/24/23 23:02
Vital Signs
Initial and Last Documented VS:
Initial Vital Signs
Temp Pulse Resp Pulse Ox
98.3 F 89 18 97
11/24/23 22:48 11/24/23 22:48 11/24/23 22:48 11/24/23 22:48
Last Documented Vital Signs
Temp Pulse Resp BP Pulse Ox
98.3 F 84 16 135/78 99
11/24/23 22:48 11/25/23 03:25 11/25/23 03:25 11/25/23 03:25 11/25/23 03:25
MDM/Problems Addressed
Differential Diagnosis Includes:
Lower GI bleed from diverticulosis, colitis, bleeding from GI polyp
MDM/Problems Addressed:
Patient presents with acute lightheadedness and GI bleed
Chronic conditions affecting care:
Diverticulosis can increase the risk of GI bleed
Acute Exacerbation and/or Progression of Chronic Illness:
Patient's presentation represents acute on chronic blood loss anemia due to GI source
*Pulse Oximetry
Patient hypoxic: no
*EKG
Interpreted by ED Provider?: Yes
Interpretation: normal
Comparison EKG: no comparison EKG present
Rate: normal
Rhythm: sinus
[place]: left axis deviation
Interval: normal interval
QRS Pattern: normal QRS
Ischemia: no ischemia
*Body Cleaner Interpretation
Rate: normal
Interpretation: normal
Rhythm: sinus
*Critical Care Note
Total Time (30-74mins, 75-104mins- exclusive of procedures): 47 min
comment:
47 minutes critical care given to patient including frequent reassessments of his mental status, blood pressure, consenting him for blood, reviewing his prior hospitalization, reviewing his blood work and counseling the patient as well speaking to
the hospitalist, GI doctor and interventional radiology
Data Reviewed
Review of Other/Old Records Reveals: Discharge Summary (Discharge summary reviewed from yesterday which shows patient was admitted for lower GI bleed. No etiology was found.)
Source: patient
Patient Management
Social determinants of health affecting care: Living situation and Strong social support
Discussion with other providers: Hospitalist and Other (Dr. Young from GI made aware of patient's condition. Dr. Cohen from interventional radiology made aware the patient is getting a CTA for massive unstable GI bleed)
Escalation/DeEscalation of care consider admission/obs:
Given patient's instability and ongoing GI bleed, decision made to admit to ICU for blood transfusion, IV fluids, Kcentra, etc
Update Note
Update Note:
2:20am I was called into the room at 2:10 AM because the patient became diaphoretic, hypotensive and unresponsive. Patient is now putting out a very large amount of blood from his rectum. I notified both the hospitalist and Dr. Young from GI.
3 units of blood ordered. Patient now has 3 good peripheral IVs and IV fluids being hung wide open. Blood bank notified and said they will have blood ready as soon as possible. Dr. Cohen from interventional radiology made aware that patient is
now going for CTA. Patient premedicated given his IV contrast allergy. I am hesitant to wait a full hour given how unstable he is.
3:35 AM patient's bleeding scan came back positive. Dr. Cohen made aware. He agreed to come in and see the patient
ED Attending Note
-
Portions of this chart may have been created with voice recognition software.� Occasional wrong word or��sound alike� substitutions may have occurred due to the inherent limitations of voice recognition software.
Discharge Plan
Departure
Patient Disposition: Admit
Date of Disposition: 11/25/23
Time of Disposition: 01:18
Admit to: Med/Surg and ICU
Presentation/result/management discussed w/ accepting MD/DO: Hospitalist
Patient with high blood pressure during this ER visit?: No
Condition: Critical
Discharge Problem:
Acute GI bleeding, Hemorrhagic shock, Acute blood loss anemia
Prescriptions:
No Action
propafenone 325 mg Capsule,Extended Release 12 Hr
325 mg PO Q12H
Eliquis 5 mg Tablet
5 mg PO BID
tamsulosin 0.4 mg Capsule
0.4 mg PO DAILY
metoprolol succinate 50 mg tablet extended release 24 hr
50 mg PO DAILY
polyethylene glycol 3350 [HealthyLax] 17 gram Powder In Packet
17 g PO DAILY Qty: 30 0RF
Referrals:
UNKNOWN - PT DOES,NOT KNOW [Family Provider] -
Interventions
Interventions:
*Risk Screen - Suicide Last Done: 11/24/23 23:05
*General Assessment Last Done: 11/24/23 23:05
*Neglect/Abuse Screening Last Done: 11/24/23 23:05
*ED COVID-19 Vaccine History Last Done: 11/24/23 23:05
MC-Hwjrmx-Zhewmxvclv Assessment Last Done: 11/24/23 23:05
ED- Cardiac Assessment Last Done: 11/24/23 23:05
ED- Pulmonary Assessment Last Done: 11/24/23 23:05
Discharge Date and Time
Print Language: WELSH
[2023-11-25] MEDS: NSS 1000 IV ×5 (01:36→21:57)
[2023-11-25] MEDS: BENADRYL 50 MG IV (02:27)
[2023-11-25] MEDS: SOLU-CORTEF 200 MG IV (02:28)
[2023-11-25] MEDS: KCENTRA 100 UNIT IV (02:58)
[2023-11-25 03:14] LABS: Hematocrit 21.1 % (39.0-52.0); Hemoglobin 7.3 g/dL (13.0-18.0)
[2023-11-25] MEDS: FLUSH (NSS) 1 FLUSH IV (03:18)
--- NOTE | 2023-11-25 03:37 | HPS.HSE ---
Family Physician
-
Family Physician: NOT KNOW UNKNOWN - PT DOES
Chief Complaint
-
Rectal Bleeding
History of Present Illness
Patient is a 68y M with PMH significant for A-Fib on anticoagulation and diverticular disease who presents to ED complaining of gross rectal bleeding. Patient was admitted at from 11/19 - 11/23 with similar symptoms. He had brisk rectal
bleeding on admission with syncope x multiple episodes. He underwent emergent CTA which failed to identify an area of active bleeding. Patient was resuscitated with IVFs and blood products. He received KCentra for reversal of his anticoagulation
with Eliquis. Patient was evaluated by GI and underwent EGD and colonoscopy - both of which also failed to identify a discrete area of bleeding. Patient's bleeding ceased and his Hgb stabilized and he was ultimately discharged to home. He resumed
his Eliquis upon discharge - having taken one dose earlier this evening.
Later in the evening, patient developed crampy abdominal pain and had a grossly bloody bowel movement at home.
He returned to the ED for further evaluation. Here in the ED, patient has been briskly passing bright red blood per rectum. He once again has had multiple episodes of diaphoresis and syncope / near-syncope associated with active bleeding and
transient hypotension.
In the ED, patient has received KCentra, 3 units of PRBCs and > 2 liters of IVFs.
Medical History
Past Medical History
Past Medical History: Reports Other
Additional Past Medical History:
Atrial Fibrillation
Diverticular Disease
Large Ventral Hernia
Past Surgical History: Reports Other
Additional Past Surgical History:
Partial Colectomy
Bladder Mass Excision / Ureteral Stenting
Umbilical Hernia Repair
Cataracts
DCCV x 2
Social History
Tobacco: Non-smoker
Alcohol: Occasional (Rarely)
Drug: None
Family History
Family History: Not pertinent
Allergies / Home Medications
Allergies reflects when Allergies were last updated in [facility].
Home Medications with original date entered in [facility]
Allergy/Medication List:
Allergies
Allergy/AdvReac Type Severity Reaction Status Date / Time
Iodinated Contrast Media Allergy Vomiting Verified 11/24/23 22:48
Home Medications
apixaban 5 mg tablet (Eliquis) 5 mg PO BID Blood Clot Prevention/Tx 11/20/23
propafenone 325 mg capsule,extended release 12 hr 325 mg PO Q12H Arrhythmia 11/20/23
tamsulosin 0.4 mg capsule 0.4 mg PO DAILY Urinary Issue 11/20/23
metoprolol succinate 50 mg tablet,extended release 24 hr 50 mg PO DAILY Blood Pressure 11/21/23
polyethylene glycol 3350 17 gram oral powder packet (HealthyLax) 17 g PO DAILY #30 ea 11/24/23
Review of Systems
-
History Source: Patient
A 12 point ROS was completed and negative except as noted: Yes
Constitutional: Reports Fatigue; Denies Fever or Chills
Respiratory: Denies Cough or Trouble Breathing
Cardiac: Reports Diaphoresis and Syncope; Denies Chest Pain or Palpitations
Abdomen/GI: Reports Abdominal Pain, Diarrhea and Bloody Stools; Denies Nausea or Vomiting
: Denies Dysuria or Frequency
Musculoskeletal: Denies Joint Pain or Edema
Neurological: Reports Dizzy; Denies Headache
Psych: Denies Depression or Anxiety
Physical Exam
Vital Signs
Vital Signs
Temp Pulse Resp BP Pulse Ox
98.3 F 84 16 135/78 99
11/24/23 22:48 11/25/23 03:25 11/25/23 03:25 11/25/23 03:25 11/25/23 03:25
Physical Exam
General: Other (68y M pale, diaphoretic and ill-appearing.)
HEENT: Other (Dry MM. Thick neck.)
Respiratory: Other (decreased at bases - otherwise clear)
Cardiac: S1/S2 and Regular Rhythm; No Murmur
GI: Other (Massive ventral hernia. Soft. No tenderness. Pos BS. Gross, brisk bleeding continues to be appreciated per rectum.)
Musculoskeletal: No Clubbing, No Cyanosis and Other (Chronic venous stasis skin changes.)
Neuro: Awake and Alert
Laboratory Results
-
11/25/23 02:16
11/24/23 23:02
Laboratory Results
PT 15.6 Sec (11.4-14.6) H 11/24/23 23:02
INR 1.24 11/24/23 23:
APTT 31.2 Sec (23.4-35.0) 11/24/23 23:
Total Bilirubin 0.3 mg/dl (0.2-1.3) 11/24/23 23:02
AST 32 U/L (17-59) 11/24/23 23:
ALT 33 U/L (0-50) 11/24/23 23:02
Alkaline Phosphatase 66 U/L (38-126) 11/24/23 23:02
Impression/Plan
-
A/P: Patient is a 68y M with PMH significant for A-Fib and diverticular disease who presents to ED complaining of recurrent rectal bleeding.
Lower GI Bleed
Hypotension secondary to the above
Syncope secondary to the above
Hypovolemic Shock secondary to blood loss
- Admit to ICU for further evaluation and treatment.
- KCentra administered in the ED given Eliquis use and active bleeding.
- Hold further Eliquis (last dose last PM) - only a single dose since discharge.
- Aggressive IVF support and follow BP.
- CTA shows area of active extravasation in the ascending colon.
- IR reviewed with ED physician and myself and elect to defer angio at this time.
- 3 units PRBCs ordered / given in the ED.
- Follow H&H and provide additional PRBCs as needed.
- GI evaluation. Colonoscopy during recent admission did not show area of bleeding, but admittedly difficult study due to retained blood products.
- Monitor for recurrent hypotension, etc and pursue STAT angio if necessary.
- +/- pressor support if needed for recurrent hypotension despite volume resuscitation.
- Train Dispatcher evaluation.
Paroxysmal Atrial Fibrillation
- Stable. Hold PO meds including propafenone and Eliquis.
- Monitor on telemetry.
- Consider IV medications if needed for rate control, etc.
- Would strongly consider remaining off of Eliquis indefinitely given recurrent bleeding - unless culprit lesion can be identified and corrected.
Massive Ventral Hernia
- Patient states this occurred following partial colon resection.
- No current abdominal pain. No significant change in hernia per patient.
DVT Prophylaxis: SCDs
Code Status: Full
--- NOTE | 2023-11-25 03:48 | W.PN.UPDATE ---
Update Note
Progress Note Update
IR consulted for LGIB and positive CTA. Pt readmitted with lgib after recent hospital stay. Eliquis resumed on discharge. CTA shows active focus of bleeding/contrast extravasation within the ascending colon. Large amount of fluid/blood in the
remainder of the colon. Pt did become unstable, diaphoretic earlier this evening. 3 units of blood odered and given Kcentra. Last bp 130/80 with hr in the 80s. Given Eliquis usage, there is a higher risk of common femoral artery access and pt has a
reversible cause to his current bleeding. Recommend continued conservative management but if he continues to bleed despite AC reversal we can consider mesenteric angio, which has only a 10-20 percent positivity rate despite positive CTA. I expect he
will continue to have some bloody bowel movements given the amount of fluid/blood in his colon on CT.
--- NOTE | 2023-11-25 04:54 | EDRN ---
around 02:00 pt called stating he wasn't feeling right and was getting dizzy, provider immediately notified and came to bedside. pt then stopped responding to verbal stimuli, became pale and diaphoretic. pt blood pressure retaken and head of bed
lowered. 3 additional rn's at bedside, 2 additional peripheral IV obtained, 2L normal saline immediately hung, pt placed on 2L O2 NC. pt became more alert, pt noted to have large bloody bowel movements that had many large clots. provider called
blood bank to immediately send 3 units. blood consent signed prior to event. additional rn went to blood bank to obtain 2 units of PRBC. first unit of blood hung on pressure bag, infused without difficulty. pharmacy called for kcentra. pt more alert
and oriented. pt taken over to ct for ct abdomen/pelvis with this rn and 2 additional rn's. pt finished first unit upon arrival to ct scan. second unit started prior to leaving ct room. slip sent for third unit of blood while at ct. pt brought back
to room. third unit of blood hung. kcentra hung without difficulty. pt remains alert and oriented. pt turned and cleaned up with the help of 2 additional rn's, pt denies lightheadedness or dizziness upon turning. per admitting provider IR holding
off taking pt to IR jodie, awaiting bed assignment.
[2023-11-25 05:39] LABS: Hematocrit 26.8 % (39.0-52.0); Hemoglobin 9.3 g/dL (13.0-18.0)
[2023-11-25 06:01] LABS: Blood Urea Nitrogen 19 mg/dl (9-20); Calcium 8.3 mg/dl (8.4-10.2); Carbon Dioxide 22 mmol/L (22-30); Chloride 113 mmol/L (98-107); Estimated Creatinine Clearance > 125 ml/min; Glucose 122 mg/dl (70-99); Potassium 4.2 mmol/L (3.5-5.1); Sodium 137 mmol/L (135-145); eGFR > 60.00
[2023-11-25] MEDS: CALCIUM GLUCONATE 100 IV (06:25)
--- NOTE | 2023-11-25 06:40 | PTCARENOTE ---
Patient transferred from ED to ICU at approx 0439. Patient is AOx4, follows commands appropriately moves all extremities. Lung sounds are clear and equal bilaterally saO2 98% on RA. Heart sounds have a rr+r patient is SR on the monitor, normal
palpable pulses and +1 BLE edema is noted. Patient has active BS throughout all four quadrants with large abdominal hernia patient reports resulted after bowel resection 20 years ago. Patient reports difficulty urinating in hospital CC#25 put on
draining clear yellow urine. Patient admitted with large GIB upon transfer patient had dark black bloody liquid stool in the bed. Patient started on fecal management system which is draining without difficulty however large amount of leakage still
noted around tube. Patient has PVD in the BLE with brown discoloration. There is also some reddened areas around the buttocks likely 2/2 irritation from frequency of BMs. Patient has 20G R FA, 18G L FA, and 18G L AC. Patient started on NSS going at
150mL/hr and calcium being repleted via calcium gluconate. Patient has no c/o pain just generalized discomfort. VSS. Patient's home meds sent to pharmacy.
--- NOTE | 2023-11-25 07:48 | PTCARENOTE ---
S/P 2 episodes of cramping then liquid burgundy stool via FMS w/leakage. FMS flushed, Cleansed. Right FA with 0.9nss@150ml/hr, Calcium gluconate 2gm just about infused. 2 liters nasal cannula with lungs CTA. Laying flat on his side. In conversing
with him he did take his dose of Ozempic when he got home yesterday. Large obese abdomen with large protruding hernia. Hyperactive BSX4. #25 condom catheter intact. Voiding clear yellow urine. He was informed of the probable plan of care for [facility].
Clarified that his daughter was to be called for medical emergencies however she live in [place] according to the pt. He was encouraged to rest between these events and to limit swabbing his mouth. Dr. Obrien TT'd regarding 2 episodes of burgundy
liquid stool since my shift started and 5 episodes for night nurse since 439.
--- NOTE | 2023-11-25 08:25 | PTCARENOTE ---
TT's Dr. Hicks, & Dr. Young regarding number of BM's since he arrived in the ICU @0440, and since the start of my shift @ 0700. Now with dizziness when turning on his side. HR was 90's when I assumed care @ 0700 and now in the low 100's. He is
side lying flat. Will continue to monitor.
--- NOTE | 2023-11-25 08:55 | CON.INTV ---
Consultation
Consultation Request
Date/Time Consultation Requested: 11/25/2023 - 433
Date/Time Consultation Performed: 11/25/2023 - 846
Requesting Provider: Dr. Obrien
Performing Provider: Dr. Giraldo
Reason for Consultation: GI Bleed
Medical History
-
Chief Complaint: Bloody bowel movement + dizziness
History of Present Illness:
68-year-old male with a past medical history of diverticulosis, A-fib on Eliquis, SHAY on CPAP, BPH and ventral hernia who presents with lower GI bleed. He was recently hospitalized from 11/19 - 11/24/2023 due to acute blood loss anemia and lower GI
bleed, reversed with Kcentra and given multiple units of blood. No active source seen on endoscopy however there is large amounts of blood and stool on colonoscopy with plans for outpatient repeat colonoscopy in several weeks. Patient was
discharged home on 11/24/2023, and came back later that evening due to large bloody bowel movement with dizziness. Vitals in the ER showed BP 140/77, heart rate 89, respiratory rate 18 and saturating 97% on room air. He was also afebrile to 98.3
�F. Labs showed hemoglobin of 8.6, platelet count 151, INR 1.24, and CTA abdomen/pelvis showed extravasation of contrast within the mid ascending colon consistent with bleed. He was given multiple units of PRBC (3 units), and admitted to the ICU
for further management. Critical care services consulted for additional management/recommendations.
This morning, the patient was seen and evaluated. He has continued to have burgundy-colored stool this AM, amounted to about 800cc total. Went down to IR for angiogram and embolization. Received 3 units overnight and also received K-centra as he
took Eliquis yesterday after discharge. SBP in 120s this AM, HR in 110s, SpO2 97% on room air. He has lower abdominal cramping. He also has back cramping and asking for something for that as well. , Tito, at bedside and answered all of her
questions. Patient currently denies chest pain, headache, nausea, vomiting, fevers or chills.
PMHx: A-fib on Eliquis, diverticulosis, ventral hernia, asthma, SHAY on CPAP, cataract, BPH
PMHx: Bladder mass excision, ureteral stenting, umbilical hernia repair, partial colectomy
Past Medical History
Past Medical History: Other (Above as per HPI)
Past Surgical History: Other (Above as per HPI)
Social History
Tobacco: Non-smoker
Alcohol: Occasional
Drug: None
Personal: (=Tito)
Living: With Family
Family History
Family History: Reviewed & Not Pertinent
Allergies / Home Medications
Allergies
Allergy/AdvReac Type Severity Reaction Status Date / Time
Iodinated Contrast Media Allergy Vomiting Verified 11/24/23 22:48
Home Medications
�Medication �Instructions �Recorded �Confirmed �Last Taken �Type
apixaban 5 mg tablet (Eliquis) 5 mg PO BID Blood Clot 11/20/23 11/24/23 Unknown History
Prevention/Tx
propafenone 325 mg 325 mg PO Q12H Arrhythmia 11/20/23 11/24/23 Unknown History
capsule,extended release 12 hr
tamsulosin 0.4 mg capsule 0.4 mg PO DAILY Urinary Issue 11/20/23 11/24/23 1 Day Ago History
~11/19/23
metoprolol succinate 50 mg 50 mg PO DAILY Blood Pressure 11/21/23 11/24/23 Unknown History
tablet,extended release 24 hr
polyethylene glycol 3350 17 gram 17 g PO DAILY #30 ea 11/24/23 11/24/23 Unknown Rx
oral powder packet (HealthyLax)
Review of Systems
-
History Source: Patient
All other systems: Negative unless noted
Vitals / Labs / Diagnostic Testing
Vital Signs
Temp Pulse Resp BP Pulse Ox
98.7 F 110 16 125/57 99
11/25/23 07:42 11/25/23 09:15 11/25/23 09:15 11/25/23 09:15 11/25/23 09:15
Lab Data
11/25/23 05:28
Laboratory Results
11/24/23
23:02
PT 15.6 H
INR 1.24
APTT 31.2
Diagnostic Testing:
Physical Exam
-
HEENT: Normocephalic and Anicteric
Cardiovascular: S1/S2 and Peripheral Edema (negative)
Respiratory: Wheeze (negative), Rales (negative), Rhonchi (negative) and Non-Labored Respirations
GI: Soft, Non Distended, Non Tender and Normal Bowel Sounds
Neurology: AO x 3 and Tremors (negative)
Skin: Warm and Dry
General: Respiratory Distress (negative), Comfortable, Chills (negative) and Sweats (negative)
Assessment
-
68-year-old male with a past medical history of diverticulosis, A-fib on Eliquis, SHAY on CPAP, BPH and ventral hernia who presents with lower GI bleed. He was recently hospitalized from 11/19 - 11/24/2023 due to acute blood loss anemia and lower GI
bleed, reversed with Kcentra and given multiple units of blood. No active source seen on endoscopy however there is large amounts of blood and stool on colonoscopy with plans for outpatient repeat colonoscopy in several weeks. Patient was
discharged home on 11/24/2023, and came back later that evening due to large bloody bowel movement with dizziness. Vitals in the ER showed BP 140/77, heart rate 89, respiratory rate 18 and saturating 97% on room air. He was also afebrile to 98.3
�F. Labs showed hemoglobin of 8.6, platelet count 151, INR 1.24, and CTA abdomen/pelvis showed extravasation of contrast within the mid ascending colon consistent with bleed. He was given multiple units of PRBC (3 units), and admitted to the ICU
for further management. Critical care services consulted for additional management/recommendations.
Impression:
Acute lower GI bleed -suspect diverticular bleed versus AVM vs brisk UGIB in small bowel -CTA A/P shows active bleeding in the mid ascending colon
Acute blood loss anemia due to above
Symptomatic anemia
Atrial fibrillation on Eliquis
Massive ventral hernia-occurred following partial colon resection
Conditions present prior to admission:
Atrial fibrillation on anticoagulation.
Diverticular disease-20 years ago status post partial colectomy
Ventral hernia.
Asthma.
Obstructive sleep apnea on CPAP.
Partial colectomy.
Umbilical hernia repair. Bladder mass excision/ureteral stenting. Cataract.
Plan
Patient has a CT angio A/P from this morning on 11/25/2023 showing extravasation of contrast within the mid ascending colon consistent with a bleed.
Patient went to IR in the morning hours after arriving to the ICU, and there was no active source discovered with negative SMA and subselective SMA arteriograms
Patient has obtained 3 units PRBC since overnight, as well as Kcentra
Serial H&H with goal Hb >7g/dL; plt goal >50k
PPI 40mg IV BID
GI on board and recommendations are appreciated
Hold anticoagulation/antiplatelets until told otherwise by GI
Considering he takes Eliquis for A-fib, he needs to be evaluated by cardiology for Watchman procedure
Suspect that he would be okay for clear liquid diet, however defer to GI
Maintain large-bore IV x 2
Maintain MAP >65
Previously there was no obvious source of bleed seen on EGD or colonoscopy from 11/22/2023, with poor visualization in the colon from blood and stool --> outpatient follow up rec'd with GI for repeat colonoscopy to assess bowel given poor
visualization on c-scope yesterday
Last colonoscopy 5 years ago-Dr. Gomez at [facility]
Supplemental oxygen as needed-maintain saturations greater than 92%
Aspiration precautions
Incentive spirometry encouraged
Continue with CPAP with sleep
CTA abdomen/pelvis - summarized below
Continue to hold beta-mika in the setting of acute LGI bleed he; if Hb is stable by tomorrow then would restart at reduced dose so as to reduce chances of masking acute bleed and also to avoid causing hypotension
Monitor blood sugar with goal BG 140-180
Insulin supplementation as needed
A1c: 5.5 from 11/23/2023
Complained of some urinary retention, frequency
If BP is stable with MAP >65 and HR 60�100 and it is safe to continue flomax
He does have back pain/spasm and this will be treated with as needed pain medications + muscle relaxer (can use dilaudid vs morphine and valium vs flexeril, hold for over-sedation)
DVT prophylaxis - SCDs
GI prophylaxis - PPI
Aspiration precautions
Nutrition
Early mobilization
Patient reports follow-up with pulmonary/sleep specialist in [place] for his 'mild asthma' and SHAY/CPAP-tolerant
Critical care statement: A total of 38 minutes of critical care time was provided for this patient today. This includes management of unstable vital signs, evaluation of the patient at bedside, reviewing the patient's pertinent medical records
including radiographs, microbiology, laboratory evaluations, and discussion with primary team, consultants, pharmacy, nutrition, physical therapy, case management, charge nurse, critical care nursing, and respiratory therapy.
Diagnostic data:
Angiogram via IR 11/25/2023: Negative SMA and subselective SMA arteriograms. No areas of active bleeding appreciated.
CTA Abd/Pelvis 11/25/2023:
There is extravasation of contrast within the mid ascending colon consistent with bleed. There is fluid present throughout the colon likely sequelae of malabsorption/diarrhea in the setting of GI bleed and reactive colitis.
No evidence of aortic aneurysm or dissection. Mild calcifications of the abdominal aorta.
Prior partial colectomy with colonic diverticulosis.
Diastasis recti containing nonobstructed small bowel and colon, similar to prior.
--- NOTE | 2023-11-25 09:11 | CON.GI ---
Medical History
Chief Complaint / HPI
Chief Complaint: LGIB
History of Present Illness:
Patient is a 68-year-old male with PMH of A-fib on Eliquis and diverticulitis s/p partial colectomy who was readmitted with large-volume hematochezia after being discharged yesterday. First time CTA was negative but repeat CTA this a.m. showed
active focus of bleeding/contrast extravasation within the ascending colon. Patient was ordered 3 units of blood ordered and was given Kcentra. Eliquis was held and IR was consulted. IR noted given Eliquis usage, there is a higher risk of common
femoral artery access and recommended continued conservative management.
Past Medical History
Past Medical History: Arrhythmias (A-fib), HTN, Hypercholesterolemia and Other (Diverticulitis)
Past Surgical History: Other (Ventral hernia, partial colectomy)
Social History
Personal: Single
Living: Alone
Allergies / Home Medications
Allergy/AdvReac Type Severity Reaction Status Date / Time
Iodinated Contrast Media Allergy Vomiting Verified 11/24/23 22:48
�Medication �Instructions �Recorded
apixaban 5 mg tablet (Eliquis) 5 mg PO BID Blood Clot 11/20/23
Prevention/Tx
propafenone 325 mg 325 mg PO Q12H Arrhythmia 11/20/23
capsule,extended release 12 hr
tamsulosin 0.4 mg capsule 0.4 mg PO DAILY Urinary Issue 11/20/23
metoprolol succinate 50 mg 50 mg PO DAILY Blood Pressure 11/21/23
tablet,extended release 24 hr
polyethylene glycol 3350 17 gram 17 g PO DAILY #30 ea 11/24/23
oral powder packet (HealthyLax)
Review of Systems
-
History Source: Patient
All other systems: A 12 pt ROS was Negative except as stated above in HPI
Abdomen/GI: Reports Abdominal Pain and Bloody Stools
Neurological: Reports Dizzy
Vital Signs
Temp Pulse Resp BP Pulse Ox
98.7 F 93 11 116/60 97
11/25/23 07:42 11/25/23 06:30 11/25/23 06:30 11/25/23 06:30 11/25/23 07:42
Physical Exam
Exam
General: Other (Patient is lying on his side and holding the bedrail)
HEENT: Other (Pale)
Respiratory: Clear
Cardiac: S1/S2 and Irregular Rhythm
GI: Soft, Tender (Mild lower abdominal tenderness) and Other (Large ventral hernia)
Neuro: Awake, Alert, Oriented and AO x 3
Psych: Calm
Results
WBC 7.8 10^3/uL (4.8-10.8) 11/24/23 23:02
Hgb 9.3 g/dL (13.0-18.0) L D 11/25/23 05:28
Hct 26.8 % (39.0-52.0) L 11/25/23 05:28
MCV 92.4 fL (80.0-94.0) 11/24/23 23:02
Plt Count 151 10^3/uL (130-400) 11/24/23 23:02
Absolute Neuts (auto) 5.7 10^3/uL (1.4-6.5) 11/24/23 23:02
PT 15.6 Sec (11.4-14.6) H 11/24/23 23:02
INR 1.24 11/24/23 23:02
APTT 31.2 Sec (23.4-35.0) 11/24/23 23:02
Sodium 137 mmol/L (135-145) 11/25/23 05:28
Potassium 4.2 mmol/L (3.5-5.1) 11/25/23 05:28
Chloride 113 mmol/L (98-107) H 11/25/23 05:28
Carbon Dioxide 22 mmol/L (22-30) 11/25/23 05:28
BUN 19 mg/dl (9-20) 11/25/23 05:28
Creatinine 0.8 mg/dL (0.7-1.3) 11/25/23 05:28
Calcium 8.3 mg/dl (8.4-10.2) L 11/25/23 05:28
Total Bilirubin 0.3 mg/dl (0.2-1.3) 11/24/23 23:02
AST 32 U/L (17-59) 11/24/23 23:02
ALT 33 U/L (0-50) 11/24/23 23:02
Alkaline Phosphatase 66 U/L (38-126) 11/24/23 23:02
Diagnostic Image Results:
CTA (11/25/23)
There is extravasation of contrast within the mid ascending colon consistent with bleed. There is fluid present throughout the colon likely sequelae of malabsorption/diarrhea in the setting of GI bleed and reactive colitis.
No evidence of aortic aneurysm or dissection. Mild calcifications of the abdominal aorta.
Prior partial colectomy with colonic diverticulosis.
Diastasis recti containing non-obstructed small bowel and colon, similar to prior.
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
Prior GI Procedures:
EGD (11/22/23):
Superficial fragments of antral type gastric mucosa with foveolar hyperplastic and reactive/reparative changes. Negative for H. pylori.
Colonoscopy (11/22/23):
A large amount of old blood with clots was found in the entire colon, making visualization difficult. Lavage of the area was performed using greater than 500 mL, resulting in clearance with fair visualization. After extensive washing, there was no
identifiable source of active bleeding, however, there was evidence of predominantly left-sided diverticulosis, with few diverticulum at the hepatic flexure and ascending colon. No AVMs were visualized, however, despite copious washing of the
mucosa, it is possible a small AVM could have been missed. The terminal ileum appeared normal. No blood present in the TI. A few polyps were scattered throughout the colon, no polypectomy attempted given current active GI bleeding. There was
evidence of a prior end-to-side colo-colonic anastomosis at 25 cm proximal to the anus. This was patent and was characterized by healthy appearing mucosa.
Assessment / Plan
-
Eliquis was immediately held and Kcentra was given at 3 AM. 3 units of pRBC was ordered. At the time of this consultation, HR>100 and SBP around 100. Patient has lost over 700 cc of blood since 4 AM. He also mentions lightheadedness and dizziness.
#Active LGIB
- Ascending colon was identified as the source of bleeding on CTA
- IR was immediately informed given the significant amount of active bleeding; IR to take patient to OR later in the morning
- Continue to hold Eliquis
- Continue to closely monitor amount of blood loss
- Blood transfusion by primary care team if necessary
- Continue to closely monitor H&H, vital signs
- Plan was communicated to patient
- Appreciate IR and primary care team
-
-
Thank you for consultation and allowing me to participate in the patient's care. Please call the professional caster GI physician during the after hours with any questions or concerns.
[2023-11-25] MEDS: PROTONIX IV 40 MG IV ×2 (10:11→21:57)
[2023-11-25] MEDS: NSS (PRESERVATIVE FREE) 10 ML IV ×2 (10:11→21:57)
[2023-11-25 10:20] LABS: Hematocrit 23.8 % (39.0-52.0); Hemoglobin 8.4 g/dL (13.0-18.0)
--- NOTE | 2023-11-25 11:15 | PTCARENOTE ---
Pt to IRAD via bed on RA with telemetry. IVF infusing as ordered. Anita Hicks and Hector TT'd recent H/H results.
--- NOTE | 2023-11-25 11:15 | W.PN.UPDATE ---
Update Note
Progress Note Update
Non-billable entry (H&P signed 330 AM)
readmitted with lower GI hemorrhage, given K-centra and 3 units PRBCs
Feels dizziness and feels better when laying flat
heading to IR urgently given ongoing active bleeding with 1 unit additionally to be given for Hb 8.4 from 9.3
Assessment:
Lower GI bleed, recurrent
Acute blood loss anemia, enhanced by Eliquis
- previous hospitalization with K-centra given, 4 units and GI procedures as summarized in bold below
- s/p EGD: Normal esophagus. Z-line regular, 45 cm from the incisors. Edematous mucosa with mild central dimpling mucosa in the antrum. Biopsied.Normal examined duodenum.
- s/p Colonoscopy: large amount of old blood with clots was found in the entire colon, making visualization difficult. Lavage of the area was performed using greater than 500 mL, resulting in clearance with fair visualization. After extensive
washing, there was no identifiable source of active bleeding, however, there was evidence of predominantly left-sided diverticulosis, with few diverticulum at the hepatic flexure and ascending colon. No AVMs were visualized, however, despite copious
washing of the mucosa, it is possible a small AVM could have been missed. The terminal ileum appeared normal. No blood present in the TI. A few polyps were scattered throughout the colon, no polypectomy attempted given current active GI bleeding.
There was evidence of a prior end-to-side colo-colonic anastomosis at 25 cm proximal to the anus. This was patent and was characterized by healthy appearing mucosa.
- readmitted 11/24 with GI hemorrage
- CT localizes bleeding to ascending colon
- again given K-centra and 3 units pRBCs
- for urgent IR angio procedure now; 1 unit PRBC further to be given in IR for drop of Hb to 8.4 from 9.3.
- trend HH
- GI also consulted
Hypotension secondary to GI bleed
Early hemorrhagic shock
- continue IVF
Lactic acidosis - resolved
paroxysmal atrial fibrillation
- monitor tele
- hold Eliquis
- continue propafenone
- continue metoprolol with hold parameters
Massive Ventral Hernia
- Patient states this occurred following partial colon resection.
- No current abdominal pain. No significant change in hernia per patient.
- Large ventral abdominal wall hernia containing bowel loops without complication.
DVT Prophylaxis: SCDs
Code: Full
--- NOTE | 2023-11-25 13:31 | W.PN.UPDATE ---
Update Note
Progress Note Update
- Neg SMA and ileocolic arteriograms. No areas of active contrast extravasation identified. No intervention performed.
- Pt was tachycardic but bp remained stable throughout
- R common femoral arteriotomy closed with 5F Mynx closure device. R leg flat for 3 hours.
[2023-11-25] MEDS: VALIUM INJECTION 2 MG IV (14:30)
[2023-11-25] MEDS: DILAUDID 0.5 MG IV (14:32)
--- NOTE | 2023-11-25 15:35 | PTCARENOTE ---
Pt with eyes closed. RR easy and unlabored. Right groin dressing CDI. Good DP/PT pulses of his right L/E.
[2023-11-25 17:14] LABS: Hematocrit 24.4 % (39.0-52.0); Hemoglobin 8.6 g/dL (13.0-18.0)
--- NOTE | 2023-11-25 17:28 | PTCARENOTE ---
Care team notified of recent H/H, no BM since before IRAD and that FMS removed. Will continue to monitor.
--- NOTE | 2023-11-25 21:30 | PTCARENOTE ---
Resumed care of pt this evening. Received pt A&Ox3, pleasant, can move all 4 extremities, and can make needs known. Pt is in NSR, has +1 edema B/L lower extremities, and weak but palpable pedal pulses. Pt on RA satting at 95% pulse ox. On
auscultation pt lungs sound diminished at the bases bilaterally. Pt is NPO, has a large, round, obese, and distended abdomen with active bowel sounds. Pt has on a condom cath and is voiding clear yellow urine. Rt groin surgical dressing intact.
[2023-11-26] VITALS (16 sets, daily range): BP systolic 103–157; BP diastolic 45–81; BMI 35.8
--- NOTE | 2023-11-26 | PTCARENOTE ---
Pt has not had a BM yet on this shift. Pt denies any N/V upon reassessment.
[2023-11-26] MEDS: NSS 1000 IV ×2 (04:07→11:32)
[2023-11-26 04:18] LABS: Hematocrit 22.7 % (39.0-52.0); Hematocrit 23.1 % (39.0-52.0); Mean Corp Hgb Conc. 34.6 g/dL (33.0-37.0); Mean Corpuscular Volume 92.4 fL (80.0-94.0); Mean Platelet Volume 10.4 fL (7.4-10.4); Platelet Count 102 10^3/uL (130-400); Red Cell Dist. Width 16.3 % (11.5-14.5); White Blood Cell Count 11.5 10^3/uL (4.8-10.8)
[2023-11-26 04:39] LABS: Blood Urea Nitrogen 18 mg/dl (9-20); Calcium 8.7 mg/dl (8.4-10.2); Carbon Dioxide 22 mmol/L (22-30); Chloride 114 mmol/L (98-107); Estimated Creatinine Clearance 116 ml/min; Glucose 115 mg/dl (70-99); Magnesium 1.7 mg/dl (1.6-2.3); Phosphorus 2.1 mg/dl (2.5-4.5); Potassium 3.6 mmol/L (3.5-5.1); Sodium 137 mmol/L (135-145); eGFR > 60.00
--- NOTE | 2023-11-26 04:50 | PTCARENOTE ---
No burgundy colored stools reported. Pt denies any GI disturbances at this time.
[2023-11-26] MEDS: POTASSIUM PHOSPHATE 259.0909 MEQ IV (06:05)
[2023-11-26] MEDS: LOPRESSOR 5 MG IV (07:22)
[2023-11-26] MEDS: NSS (PRESERVATIVE FREE) 10 ML IV (07:23)
[2023-11-26] MEDS: PROTONIX IV 40 MG IV (07:23)
--- NOTE | 2023-11-26 07:50 | PTCARENOTE ---
pt received from previous rn- aox4, sinus tach on monitor- given lopressor as per order. on room air, denies any complaints at this time. pt with large abdominal hernia. condom cath intact, cyu. pt turns and repositions self. educated on plan of
care- verbalized understanding. pt passing gas, no bms noted. all safety precautions in place, call mendiola within reach. ivf infusing as per order.
--- NOTE | 2023-11-26 08:33 | W.PN.INTV ---
Today's Communication / Plan
Recommendations
Trend Hb
Transfuse as needed
Consider repeat imaging if patient has recurrence of massive hematochezia, however need to also limit his contrast as he just received IV contrast yesterday
Hold anticoagulation until deemed safe to resume per GI and cardiology - I recommend holding Eliquis until he is seen by Cardiology and GI as an outpatient, and recommend Watchman procedure consultation
Patient is hemodynamically stable, with Hb stable since evening of 11/25/2023. Safe for downgrade out of ICU to telemetry. Dessert Cup Machine Feeder/pulmonary service will now sign off. Please reconsult if there are any additional questions/concerns, or if
patient's respiratory status deteriorates.
Assessment
-
68-year-old male with a past medical history of diverticulosis, A-fib on Eliquis, SHAY on CPAP, BPH and ventral hernia who presents with lower GI bleed. He was recently hospitalized from 11/19 - 11/24/2023 due to acute blood loss anemia and lower GI
bleed, reversed with Kcentra and given multiple units of blood. No active source seen on endoscopy however there is large amounts of blood and stool on colonoscopy with plans for outpatient repeat colonoscopy in several weeks. Patient was
discharged home on 11/24/2023, and came back later that evening due to large bloody bowel movement with dizziness. Vitals in the ER showed BP 140/77, heart rate 89, respiratory rate 18 and saturating 97% on room air. He was also afebrile to 98.3
�F. Labs showed hemoglobin of 8.6, platelet count 151, INR 1.24, and CTA abdomen/pelvis showed extravasation of contrast within the mid ascending colon consistent with bleed. He was given multiple units of PRBC (3 units), and admitted to the ICU
for further management. Critical care services consulted for additional management/recommendations.
Impression:
Acute lower GI bleed - suspect diverticular bleed versus AVM vs brisk UGIB in small bowel in setting of Eliquis - CTA A/P shows active bleeding in the mid ascending colon
Acute blood loss anemia due to above
Symptomatic anemia
Atrial fibrillation on Eliquis
Massive ventral hernia-occurred following partial colon resection
Conditions present prior to admission:
Atrial fibrillation on anticoagulation.
Diverticular disease-20 years ago status post partial colectomy
Ventral hernia.
Asthma.
Obstructive sleep apnea on CPAP.
Partial colectomy.
Umbilical hernia repair. Bladder mass excision/ureteral stenting. Cataract.
Plan
Patient had a CT angio A/P from morning on 11/25/2023 showing extravasation of contrast within the mid ascending colon consistent with a bleed.
Patient went to IR in the morning hours after arriving to the ICU, and there was no active source discovered with negative SMA and subselective SMA arteriograms
Patient has obtained 4 units PRBC since admission as well as Kcentra
Hb is currently stable at 8.6
Serial H&H with goal Hb >7g/dL; plt goal >50k
PPI 40mg IV BID
GI on board and recommendations are appreciated
Hold anticoagulation/antiplatelets until told otherwise by GI
Considering he takes Eliquis for A-fib, he needs to be evaluated by cardiology for Watchman procedure
Suspect that he would be okay for clear liquid diet, however defer to GI; ADAT
Maintain large-bore IV x 2
Maintain MAP >65
Previously there was no obvious source of bleed seen on EGD or colonoscopy from 11/22/2023, with poor visualization in the colon from blood and stool --> outpatient follow up rec'd with GI for repeat colonoscopy to assess bowel given poor
visualization on c-scope yesterday
Last colonoscopy 5 years ago-Dr. Gomez at [facility]
Supplemental oxygen as needed-maintain saturations greater than 90-94%
Aspiration precautions
Incentive spirometry encouraged
Continue with CPAP with sleep
CTA abdomen/pelvis - summarized below
Resume beta-mika
Monitor blood sugar with goal BG 140-180
Insulin supplementation as needed
A1c: 5.5 from 11/23/2023
Complained of some urinary retention, frequency
Restart flomax today
He does have back pain/spasm and this will be treated with as needed pain medications + muscle relaxer (can use prn morphine + flexeril - hold for over-sedation)
DVT prophylaxis - SCDs
GI prophylaxis - PPI
Aspiration precautions
Nutrition
Early mobilization
Patient reports follow-up with pulmonary/sleep specialist in [place] for his 'mild asthma' and SHAY/CPAP-tolerant
Patient stable for downgrade out of ICU to telemetry. Continue with monitoring of H&H. Dessert Cup Machine Feeder/Pulmonary service will now sign off. Thank you for allowing us to be involved in the care of this patient. Please reconsult if there are any
additional questions/concerns, or if patient's respiratory status deteriorates.
Total time spent today was 75 minutes for this encounter. Time includes reviewing laboratory test/imaging results, reviewing pertinent medical records, obtaining and reviewing medical history, performing an appropriate exam, ordering medications,
tests and procedures. Time also includes documentation of this encounter, coordinating patient care and communicating with other healthcare professionals. Total time does not include separately billed tests performed on this date of service.
Diagnostic data:
Angiogram via IR 11/25/2023: Negative SMA and subselective SMA arteriograms. No areas of active bleeding appreciated.
CTA Abd/Pelvis 11/25/2023:
There is extravasation of contrast within the mid ascending colon consistent with bleed. There is fluid present throughout the colon likely sequelae of malabsorption/diarrhea in the setting of GI bleed and reactive colitis.
No evidence of aortic aneurysm or dissection. Mild calcifications of the abdominal aorta.
Prior partial colectomy with colonic diverticulosis.
Diastasis recti containing nonobstructed small bowel and colon, similar to prior.
Subjective Dataa
Subjective Data
Date of Service:
Date of Service: November 26, 2023
Chief Complaint: Dessert Cup Machine Feeder Follow Up
Subjective:
Patient seen and evaluated this morning. No bloody bowel movements overnight, but he had a bloody BM this AM at around 11:15AM. Hb 8 this AM. He denies abdominal pain, shortness breath, chest pain. He mainly complains of back pain and difficulty
urinating � Flomax has been restarted with first dose given this morning.
Review of Systems
General: Other (Negative unless mentioned above)
Objective Data
Data Reviewed
Vital Signs / I&O / Oxygen:
Vital Signs
Temp Pulse Resp BP Pulse Ox
99.2 F 117 22 110/59 95
11/26/23 11:02 11/26/23 09:00 11/26/23 09:00 11/26/23 09:00 11/26/23 09:00
Intake and Output
11/25/23 11/26/23 11/27/23
06:59 06:59 06:59
Intake Total 45 / 195 2475 / 2619.7 514.1 / 514.1
Output Total 600 / 600 3148 / 3148 400 / 400
Balance -555 / -405 -673 / -528.3 114.1 / 114.1
SaO2 95
Nasal Cannula flow liters per 2
minute
Physical Exam
General: Respiratory Distress (Negative), Comfortable (Generally comfortable but does complain of back pain) and Pain (Back pain which is chronic)
HEENT: Normocephalic and Anicteric
Cardiovascular: S1-S2 and Peripheral Edema (Negative)
Respiratory: Wheeze (Negative), Crackles (Negative), Rhonchi (Negative) and Non-Labored Respirations
GI: Soft, Distended (Abdominal obesity), Non Tender and Other (Hypoactive bowel sounds)
Neurology: Awake, Alert and Tremors
Skin: Warm, Dry and Rash (negative)
Labs/Micro/Reports
Lab Data
11/26/23 04:03
11/26/23 04:03
--- NOTE | 2023-11-26 10:11 | W.PN.UPDATE ---
Update Note
Progress Note Update
--- NOTE | 2023-11-26 10:14 | PTCARENOTE ---
pt sitting on side of bed, denies dizziness. pt on clear liquid diet. assessment unchanged.
--- NOTE | 2023-11-26 11:01 | W.PN.GI.CBS2 ---
Addendum entered and electronically signed by Drew Metcalf MD 11/26/23 19:49:
I saw and evaluated the patient. I reviewed the resident�s note and agree with findings and plan as documented in the resident�s note.
68-year-old gentleman presenting with massive diverticular bleeding. He was recently admitted for the same and underwent a colonoscopy. He did have some right-sided diverticulum at that time. CTA was done which showed ascending colon bleeding.
Unfortunately, at this time interventional radiology allergy intervened, they did not see any active bleeding and they were unable to embolize.
I discussed with the patient and daughter at bedside the nature of diverticular bleeding. We discussed that typically it stops on its own. We discussed rarely patients need surgery. If he does have ongoing overt GI bleeding, I would recommend IR
to reattempt embolization. We discussed that rarely colonoscopy is able to intervene on diverticular bleeding. He is due for screening colonoscopy which she will reach out to his colorectal surgeon Dr. Gomez and Dr. Jones.
I discussed with patient's interior wirer Dr. David Bernal at [facility]. Patient has an appointment on Wednesday. Plan will be to hold Eliquis until then. I discussed with the hospitalist. GI will sign off at this time. Please call with
any questions or issues.
Original Note:
Today's Communication / Plan
-
Advance diet to clear liquids, continue to monitor V/S and h/h; if patient remains stable, GI will sign off
Assessment / Plan
-
Plan:
- Advance diet to clear liquids
- Hgb is currently stable; Continue to monitor h/h today
- Dr. Metcalf spoke with patient's interior wirer (Dr. David Bernal); plan is to hold Eliquis until 11/30 which is patient's next card appointment and then decide on whether to resume Eliquis
- Communicated plan with patient
- Appreciate primary care team
- If patient remains stable, GI will sign off today
Subjective
Subjective
Date of Service: November 26, 2023
At the time of visit, BP was 110/59 and HR was 115. Subjectively, patient is feeling better compared to yesterday and did not complain of dizziness. His did not have any n/v. No rectal bleeding. He has been able to pass gas.
IR performed angiogram yesterday. No areas of active contrast extravasation were identified. No interventions were performed.
Objective
Data Reviewed
Laboratory Data:
Laboratory Results
11/26/23 04:03
11/26/23 04:03
Laboratory Results
PT 15.6 Sec (11.4-14.6) H 11/24/23 23:02
INR 1.24 11/24/23 23:02
APTT 31.2 Sec (23.4-35.0) 11/24/23 23:02
Phosphorus 2.1 mg/dl (2.5-4.5) L 11/26/23 04:03
Magnesium 1.7 mg/dl (1.6-2.3) 11/26/23 04:03
Total Bilirubin 0.3 mg/dl (0.2-1.3) 11/24/23 23:02
AST 32 U/L (17-59) 11/24/23 23:02
ALT 33 U/L (0-50) 11/24/23 23:02
Alkaline Phosphatase 66 U/L (38-126) 11/24/23 23:02
Vital Signs and I&O:
Vital Signs
Temp Pulse Resp BP Pulse Ox
98.8 F 117 22 110/59 95
11/26/23 07:00 11/26/23 09:00 11/26/23 09:00 11/26/23 09:00 11/26/23 09:00
I&O
11/25/23 11/26/23 11/27/23
06:59 06:59 06:59
Intake Total 45 / 195 2475 / 2619.7 514.1 / 514.1
Output Total 600 / 600 3148 / 3148 400 / 400
Balance -555 / -405 -673 / -528.3 114.1 / 114.1
Physical Exam
Physical Exam
HEENT: Anicteric
Cardiology: S1 and S2
Pulmonary: Clear
GI: Soft, Distended and Non Tender
Extremities: No Edema
[2023-11-26] MEDS: TOPROL XL 50 MG PO (11:32)
[2023-11-26] MEDS: MAGNESIUM OXIDE 500 MG PO (11:32)
[2023-11-26] MEDS: FLOMAX 0.4 MG PO (11:32)
--- NOTE | 2023-11-26 11:43 | PTCARENOTE ---
pt oob to commode- one [facility]- [facility]- [facility] sent. pt has no complaints at this time.
[2023-11-26 11:50] LABS: Hemoglobin 8.6 g/dL (13.0-18.0)
[2023-11-26] MEDS: NON-FORMULARY ITEM 325 MG PO ×2 (12:14→19:33)
--- NOTE | 2023-11-26 12:22 | CM ---
CM following re: discharge planning.
Reviewed pt's chart, met with pt.
Pt is a 68 year old male, admitted with primary dx of Rectal bleeding.
Pt reports he lives alone in a 2SH, 1 steps to enter, has no children, has a sister and she lives in [place], has a dog. Pt described himself as independent in all areas [employer], drives, retired. No DME, VN or SNF history. Pt reports he has supportive
friends.
AD witrh a copy of POA provided to the pt.
According to pt most likely will be ready for discharge tomorrow. Pt is aware, expressed his agreement and he stated his friend will transport home.
AMM reviewed, placed on chart, pt has a copy.
PCP: Michael Bethea
Pharmacy: [facility].
D/C plan: home with anticipated no needs. Friend to transport at discharge.
CM will follow with discharge plan updates as hospitalization progresses.
--- NOTE | 2023-11-26 14:22 | W.PN.HOSP.TC ---
Today's Communication/Plan
-
clears
resume cardiac/BP meds
monitor Hb
tx tele
Assessment / Plan
Assessment / Plan
Assessment:
Lower GI bleed, recurrent
Acute blood loss anemia, enhanced by Eliquis
- previous hospitalization with K-centra given, 4 units and GI procedures as summarized in bold below
- s/p EGD: Normal esophagus. Z-line regular, 45 cm from the incisors. Edematous mucosa with mild central dimpling mucosa in the antrum. Biopsied.Normal examined duodenum.
- s/p Colonoscopy: large amount of old blood with clots was found in the entire colon, making visualization difficult. Lavage of the area was performed using greater than 500 mL, resulting in clearance with fair visualization. After extensive
washing, there was no identifiable source of active bleeding, however, there was evidence of predominantly left-sided diverticulosis, with few diverticulum at the hepatic flexure and ascending colon. No AVMs were visualized, however, despite copious
washing of the mucosa, it is possible a small AVM could have been missed. The terminal ileum appeared normal. No blood present in the TI. A few polyps were scattered throughout the colon, no polypectomy attempted given current active GI bleeding.
There was evidence of a prior end-to-side colo-colonic anastomosis at 25 cm proximal to the anus. This was patent and was characterized by healthy appearing mucosa.
- readmitted 11/24 with GI hemorrhage
- CT localizes bleeding to ascending colon
- again given K-centra and 4 units pRBCs
- urgent IR angio procedure 11/26 negative
- follow Hb
- advance diet
Hypotension secondary to GI bleed
Early hemorrhagic shock
- continue IVF
Lactic acidosis - resolved
paroxysmal atrial fibrillation
- monitor tele
- hold Eliquis until OP Cardiology f/u
- continue propafenone
- continue metoprolol with hold parameters
Massive Ventral Hernia
- Patient states this occurred following partial colon resection.
- No current abdominal pain. No significant change in hernia per patient.
- Large ventral abdominal wall hernia containing bowel loops without complication.
DVT Prophylaxis: SCDs
Code: Full
Dispo: tx to tele
Total Critical Care Time 38 minutes. I was immediately available to the patient and staff. I personally examined, reviewed labs, diagnostic images/reports, interpretations, treatment plans, discussed patient care with other providers and family
or caregivers (if patient is unable to make decisions), entered orders as appropriate and documented the medical record.
Anticipated Discharge: > 48 hours
Subjective/Interval History
-
Date of Service: November 26, 2023
Hb 8.6, repeat pending 6pm
denies any complaints
Objective Data
-
Labs:
Laboratory Results
11/26/23 11/26/23 11/26/23
04:03 04:03 04:03
WBC 11.5 H
Hgb 8.0 L 8.0 L
Hct 22.7 L 23.1 L
Plt Count 102 L D
Sodium 137
Potassium 3.6
Chloride 114 H
Carbon Dioxide 22
BUN 18
Creatinine 0.9
Glucose 115 H
Calcium 8.7
11/26/23 11/26/23
11:41 18:00
WBC Pending
Hgb 8.6 L Pending
Hct Pending
Plt Count Pending
Sodium
Potassium
Chloride
Carbon Dioxide
BUN
Creatinine
Glucose
Calcium
Vital Signs:
Vital Signs
Temp Pulse Resp BP Pulse Ox
99.2 F 144 29 103/69 95
11/26/23 11:02 11/26/23 11:17 11/26/23 11:17 11/26/23 11:17 11/26/23 10:00
I&O
11/25/23 11/26/23 11/27/23
06:59 06:59 06:59
Intake Total 45 / 195 2475 / 2619.7 754.1 / 754.1
Output Total 600 / 600 3148 / 3148 400 / 400
Balance -555 / -405 -673 / -528.3 354.1 / 354.1
Physical Exam
-
General: No Apparent Distress
HEENT: Normocephalic and Atraumatic
Respiratory: Negative Wheezes
Cardiac: Regular Rhythm and S1/S2
GI: Soft
Genito-urinary: No Costovertebral Tender
Musculoskeletal: No Edema
Neuro: AO x 3
Hematologic / Lymphatic: No Lymphadenopathy
Psych: Calm
Data Reviewed
-
Critical Care Time (in minutes): 38
Labs: Labs Reviewed by me
[2023-11-26 17:31] LABS: Hematocrit 22.3 % (39.0-52.0); Hemoglobin 7.8 g/dL (13.0-18.0); Mean Corpuscular Volume 91.4 fL (80.0-94.0); Mean Platelet Volume 10.3 fL (7.4-10.4); Platelet Count 114 10^3/uL (130-400); Red Blood Cell Count 2.44 10^6/uL (4.70-6.10); White Blood Cell Count 16.2 10^3/uL (4.8-10.8)
[2023-11-26] MEDS: FERRLECIT 110 MG IV (18:19)
--- NOTE | 2023-11-26 20:00 | PTCARENOTE ---
Received patient at 1900. Pt. currently in bed. Awake, alert, and oriented. Currently denies pain/discomfort. Afebrile. Heart rhythm sinus tachy. Blood pressure normotensive. Currently on room air. Lungs sound diminished. Currently on clear liquid
diet. Good appetite. No BM since earlier this morning per previous RN. Voiding in urinal without issue. Skin as documented. Discussed plan of care with patient. Vital signs stable at this time.
[2023-11-27] VITALS (16 sets, daily range): BP systolic 96–143; BP diastolic 37–93; BMI 35.7
[2023-11-27 05:02] LABS: Blood Urea Nitrogen 16 mg/dl (9-20); Calcium 8.6 mg/dl (8.4-10.2); Carbon Dioxide 25 mmol/L (22-30); Chloride 107 mmol/L (98-107); Estimated Creatinine Clearance 104 ml/min; Glucose 115 mg/dl (70-99); Potassium 3.5 mmol/L (3.5-5.1); Sodium 134 mmol/L (135-145); eGFR > 60.00
[2023-11-27 05:25] LABS: Hematocrit 19.5 % (39.0-52.0); Hemoglobin 6.8 g/dL (13.0-18.0); Mean Corp Hgb Conc. 34.9 g/dL (33.0-37.0); Mean Corpuscular Hgb 31.8 pg (27.0-31.0); Mean Corpuscular Volume 91.1 fL (80.0-94.0); Platelet Count 94 10^3/uL (130-400); Red Blood Cell Count 2.14 10^6/uL (4.70-6.10); Red Cell Dist. Width 16.4 % (11.5-14.5)
--- NOTE | 2023-11-27 05:45 | PTCARENOTE ---
Pt. hemoglobin resulted 6.8 on AM labs. House provider notified. House provider to order 1u PRBC. Pt. with no bowel movements. Vital signs stable.
[2023-11-27] MEDS: FLOMAX 0.4 MG PO (08:22)
[2023-11-27] MEDS: PROTONIX 40 MG PO (08:22)
[2023-11-27] MEDS: NON-FORMULARY ITEM 325 MG PO (08:22)
[2023-11-27] MEDS: TOPROL XL 50 MG PO (08:22)
--- NOTE | 2023-11-27 09:06 | PTCARENOTE ---
Rec'd pt at 0700. Pt AAOx3, follows commands, SPARKS. Monitor SR/ST. Lungs CTA/dim. Abd large/round, +hernia. 1 unit PRBC transfusion completed. Clear liquid breakfast ordered.
[2023-11-27] MEDS: TYLENOL 650 MG PO (11:55)
--- NOTE | 2023-11-27 12:02 | W.PN.HOSP.TC ---
Today's Communication/Plan
-
Gallego and infectious workup of fever, start empiric Zosyn
monitor Hb serially
continue clears
Assessment / Plan
Assessment / Plan
Assessment:
Lower GI bleed, recurrent
Acute blood loss anemia, enhanced by Eliquis
- previous hospitalization with K-centra given, 4 units and GI procedures as summarized in bold below
- s/p EGD: Normal esophagus. Z-line regular, 45 cm from the incisors. Edematous mucosa with mild central dimpling mucosa in the antrum. Biopsied.Normal examined duodenum.
- s/p Colonoscopy: large amount of old blood with clots was found in the entire colon, making visualization difficult. Lavage of the area was performed using greater than 500 mL, resulting in clearance with fair visualization. After extensive
washing, there was no identifiable source of active bleeding, however, there was evidence of predominantly left-sided diverticulosis, with few diverticulum at the hepatic flexure and ascending colon. No AVMs were visualized, however, despite copious
washing of the mucosa, it is possible a small AVM could have been missed. The terminal ileum appeared normal. No blood present in the TI. A few polyps were scattered throughout the colon, no polypectomy attempted given current active GI bleeding.
There was evidence of a prior end-to-side colo-colonic anastomosis at 25 cm proximal to the anus. This was patent and was characterized by healthy appearing mucosa.
- readmitted 11/24 with GI hemorrhage
- CT localizes bleeding to ascending colon
- again given K-centra and total 5 units pRBCs
- urgent IR angio procedure 11/26 negative
- follow Hb
- advance diet
Hypotension secondary to GI bleed
Early hemorrhagic shock
- continue IVF
Lactic acidosis - resolved
Febrile illness with urinary retention 11/26
Suspected complicated UTI
- check UA/Culture and Bcx
- start empiric Zosyn
- place Gallego per retention protocol
- continue Flomax
paroxysmal atrial fibrillation
- monitor tele
- hold Eliquis until OP Cardiology f/u scheduled 11/[address] Bernal
- continue propafenone
- continue metoprolol with hold parameters
Massive Ventral Hernia
- Patient states this occurred following partial colon resection.
- No current abdominal pain. No significant change in hernia per patient.
- Large ventral abdominal wall hernia containing bowel loops without complication.
DVT Prophylaxis: SCDs
Code: Full
Anticipated Discharge: > 48 hours
Subjective/Interval History
-
Date of Service: November 27, 2023
Hb 6.8 this AM, no further signs of bleeding
just now with fever of 101.7 and urinary retention, Gallego being placed
Objective Data
-
Labs:
Laboratory Results
11/27/23 11/27/23
04:29 12:00
WBC 13.0 H
Hgb 6.8 L* Pending
Hct 19.5 L* Pending
Plt Count 94 L
Sodium 134 L
Potassium 3.5
Chloride 107
Carbon Dioxide 25
BUN 16
Creatinine 1.0
Glucose 115 H
Calcium 8.6
Vital Signs:
Vital Signs
Temp Pulse Resp BP Pulse Ox
101.7 F H 99 20 125/67 95
11/27/23 11:40 11/27/23 10:30 11/27/23 10:30 11/27/23 10:00 11/27/23 10:30
I&O
11/26/23 11/27/23 11/28/23
06:59 06:59 06:59
Intake Total 9865 / 2619.7 2003.1 / 2003.1 250 / 250
Output Total 3148 / 3148 2725 / 2725
Balance -673 / -528.3 -720.9 / -720.9 250 / 250
Physical Exam
-
General: No Apparent Distress and Fever
HEENT: Normocephalic and Atraumatic
Respiratory: Negative Wheezes
Cardiac: Regular Rhythm and S1/S2
GI: Soft
Genito-urinary: No Costovertebral Tender
Neuro: AO x 3
Psych: Calm
Data Reviewed
-
Total Time Spent with Patient (in minutes): 44
Labs: Labs Reviewed by me
--- NOTE | 2023-11-27 12:15 | PTCARENOTE ---
Pt unable to void after multiple attempts. Discussed with . Gallego placed with initial output >800ml. Temp 101.7, [place] aware. Urine specimen sent, blood cx x1.
[2023-11-27 12:44] LABS: Hematocrit 22.3 % (39.0-52.0); Hemoglobin 7.7 g/dL (13.0-18.0)
[2023-11-27 12:56] LABS: Urine Albumin Negative (Neg - Trace); Urine Bilirubin Negative (Negative); Urine Character Slightly Cloudy (Clear); Urine Color Yellow; Urine Glucose Negative (Negative); Urine Ketone Negative (Negative); Urine Leukocyte 1+ (Negative); Urine Nitrite Negative (Negative); Urine Occult Blood Trace (Negative); Urine Specific Gravity 1.015 (<1.030); Urine Urobilinogen Negative (Neg - 1+)
[2023-11-27 13:07] LABS: Urine Bacteria Many (Negative)
[2023-11-27 13:08] LABS: Urine Red Blood Cell 0-2 /HPF (0-2)
[2023-11-27] MEDS: ZOSYN 50 IV ×2 (13:26→20:31)
[2023-11-27] MEDS: FERRLECIT 110 MG IV (13:27)
--- NOTE | 2023-11-27 17:09 | PTCARENOTE ---
Pt taken for 2 view CXR, then transported to tele room 402-2 via bed. Belongings with pt.
--- NOTE | 2023-11-27 18:02 | PTCARENOTE ---
Patient transferred from ICU to room 402-02. Vital signs stable. Patient oriented to room, use of call mendiola. television and bed controls. Patient verbalizes understanding of teaching. Patient on clear liquid diet at this time. Resting in bed
comfortably at this time without complaint.
[2023-11-27] MEDS: NON-FORMULARY ITEM 1 MG PO (20:31)
[2023-11-28] VITALS (10 sets, daily range): BP systolic 95–132; BP diastolic 50–75
[2023-11-28] MEDS: ZOSYN 50 IV ×4 (02:35→20:03)
[2023-11-28] MEDS: NON-FORMULARY ITEM 325 MG PO ×2 (08:03→20:04)
[2023-11-28] MEDS: FLOMAX 0.4 MG PO (08:03)
[2023-11-28] MEDS: PROTONIX 40 MG PO (08:03)
[2023-11-28] MEDS: TOPROL XL 50 MG PO (08:03)
[2023-11-28 09:10] LABS: Blood Urea Nitrogen 15 mg/dl (9-20); Calcium 8.6 mg/dl (8.4-10.2); Carbon Dioxide 24 mmol/L (22-30); Chloride 105 mmol/L (98-107); Estimated Creatinine Clearance 116 ml/min; Glucose 84 mg/dl (70-99); Potassium 3.5 mmol/L (3.5-5.1); Sodium 132 mmol/L (135-145); eGFR > 60.00
--- NOTE | 2023-11-28 10:35 | W.PN.HOSP.TC ---
Today's Communication/Plan
-
PT/OT
Prn Lasix x1
follow Hb
upgrade to LRD
Assessment / Plan
Assessment / Plan
Assessment:
Lower GI bleed, recurrent
Acute blood loss anemia, enhanced by Eliquis
- previous hospitalization with K-centra given, 4 units and GI procedures as summarized in bold below
- s/p EGD: Normal esophagus. Z-line regular, 45 cm from the incisors. Edematous mucosa with mild central dimpling mucosa in the antrum. Biopsied.Normal examined duodenum.
- s/p Colonoscopy: large amount of old blood with clots was found in the entire colon, making visualization difficult. Lavage of the area was performed using greater than 500 mL, resulting in clearance with fair visualization. After extensive
washing, there was no identifiable source of active bleeding, however, there was evidence of predominantly left-sided diverticulosis, with few diverticulum at the hepatic flexure and ascending colon. No AVMs were visualized, however, despite copious
washing of the mucosa, it is possible a small AVM could have been missed. The terminal ileum appeared normal. No blood present in the TI. A few polyps were scattered throughout the colon, no polypectomy attempted given current active GI bleeding.
There was evidence of a prior end-to-side colo-colonic anastomosis at 25 cm proximal to the anus. This was patent and was characterized by healthy appearing mucosa.
- readmitted 11/24 with GI hemorrhage
- CT localizes bleeding to ascending colon
- again given K-centra and total 5 units pRBCs
- urgent IR angio procedure 11/26 negative
- follow Hb daily
- advance diet to LRD today
Hypotension secondary to GI bleed
Early hemorrhagic shock
- improved with IVF
Lactic acidosis - resolved
Febrile illness with urinary retention 11/26
- UA unremarkable; await culture
- await Bcx; possibility of GI translocation could develop a bacteremia
- Continue empiric Zosyn, day 2 pending culture data
- continue Gallego and eventual TOV
- continue Flomax
Iatrogenic volume overload
- from IVF and blood products
- Lasix 20mg x 1 dose
paroxysmal atrial fibrillation
- monitor tele
- hold Eliquis until OP Cardiology f/u scheduled 11/[address] Bernal
- continue propafenone
- continue metoprolol with hold parameters
Massive Ventral Hernia
- Patient states this occurred following partial colon resection.
- No current abdominal pain. No significant change in hernia per patient.
- Large ventral abdominal wall hernia containing bowel loops without complication.
DVT Prophylaxis: SCDs
Code: Full
Anticipated Discharge: 24 - 48 hours
Subjective/Interval History
-
Date of Service: November 28, 2023
no evidence of GI bleed overnight, todays Hb pending
no fevers overnight
Gallego remains
Objective Data
-
Labs:
Laboratory Results
11/28/23 11/28/23 11/28/23
05:29 05:30 10:30
WBC Cancelled Pending
Hgb Cancelled Pending
Hct Cancelled Pending
Plt Count Cancelled Pending
Sodium 132 L
Potassium 3.5
Chloride 105
Carbon Dioxide 24
BUN 15
Creatinine 0.9
Glucose 84
Calcium 8.6
Vital Signs:
Vital Signs
Temp Pulse Resp BP Pulse Ox
98.1 F 92 18 113/72 96
11/28/23 07:35 11/28/23 07:35 11/28/23 07:35 11/28/23 07:35 11/28/23 07:35
I&O
11/27/23 11/28/23 11/29/23
06:59 06:59 06:59
Intake Total 2003.1 / 2003.1 2390 / 2390
Output Total 2725 / 2725 2200 / 2200
Balance -720.9 / -720.9 190 / 190
Physical Exam
-
General: No Apparent Distress
HEENT: Normocephalic and Atraumatic
Respiratory: Negative Wheezes
Cardiac: Regular Rhythm
GI: Soft
Musculoskeletal: No Edema
Neuro: AO x 3
Hematologic / Lymphatic: No Lymphadenopathy
Psych: Calm
Data Reviewed
-
Total Time Spent with Patient (in minutes): 42
Labs: Labs Reviewed by me
[2023-11-28 11:33] LABS: Hemoglobin 7.1 g/dL (13.0-18.0); Mean Corp Hgb Conc. 35.5 g/dL (33.0-37.0); Mean Corpuscular Volume 90.1 fL (80.0-94.0); Mean Platelet Volume 11.1 fL (7.4-10.4); Platelet Count 88 10^3/uL (130-400); Red Blood Cell Count 2.22 10^6/uL (4.70-6.10); White Blood Cell Count 8.6 10^3/uL (4.8-10.8)
[2023-11-28] MEDS: LASIX 20 MG IV (11:36)
[2023-11-28] MEDS: FERRLECIT 110 MG IV (14:18)
--- NOTE | 2023-11-28 18:30 | PTCARENOTE ---
Patient with Hgb today of 7.1. One unit of PRBCs transfusing currently. Patient denies any signs/symptoms of adverse reaction. Vital signs stable.
[2023-11-29] VITALS (8 sets, daily range): BP systolic 109–148; BP diastolic 38–64; PULSE 88; O2SAT 98
[2023-11-29] MEDS: ZOSYN 50 IV ×2 (02:49→07:50)
[2023-11-29 07:40] LABS: Hematocrit 24.9 % (39.0-52.0); Hemoglobin 8.5 g/dL (13.0-18.0); Mean Corp Hgb Conc. 34.1 g/dL (33.0-37.0); Mean Corpuscular Hgb 31.6 pg (27.0-31.0); Mean Corpuscular Volume 92.6 fL (80.0-94.0); Mean Platelet Volume 10.9 fL (7.4-10.4); Platelet Count 122 10^3/uL (130-400); Red Blood Cell Count 2.69 10^6/uL (4.70-6.10); Red Cell Dist. Width 16.3 % (11.5-14.5); White Blood Cell Count 6.3 10^3/uL (4.8-10.8)
[2023-11-29] MEDS: FLOMAX 0.4 MG PO (07:50)
[2023-11-29] MEDS: TOPROL XL 50 MG PO (07:50)
[2023-11-29] MEDS: PROTONIX 40 MG PO (07:50)
[2023-11-29] MEDS: NON-FORMULARY ITEM 325 MG PO (07:50)
[2023-11-29] MEDS: FLUSH (NSS) 1 FLUSH IV (07:51)
[2023-11-29 08:12] LABS: Blood Urea Nitrogen 12 mg/dl (9-20); Carbon Dioxide 26 mmol/L (22-30); Chloride 103 mmol/L (98-107); Estimated Creatinine Clearance 116 ml/min; Glucose 105 mg/dl (70-99); Potassium 3.6 mmol/L (3.5-5.1); Sodium 134 mmol/L (135-145); eGFR > 60.00
--- NOTE | 2023-11-29 10:50 | W.PN.HOSP.TC ---
Addendum entered and electronically signed by Nga Marshall MD 11/29/23 13:46:
Addendum
Hyponatremia, mild
Original Note:
Today's Communication/Plan
-
dc planning
Assessment / Plan
Assessment / Plan
Physical Exam
-
General: No Apparent Distress
HEENT: Normocephalic and Atraumatic
Respiratory: Negative Wheezes
Cardiac: Regular Rhythm
GI: Soft, + hernia
Musculoskeletal: No Edema
Neuro: AO x 3, he followed commands.
Skin: no jaundice
Psych: Calm
Assessment:
Lower GI bleed, recurrent
Acute blood loss anemia, enhanced by Eliquis
- previous hospitalization with K-centra given, 4 units and GI procedures as summarized in bold below
- s/p EGD: Normal esophagus. Z-line regular, 45 cm from the incisors. Edematous mucosa with mild central dimpling mucosa in the antrum. Biopsied.Normal examined duodenum.
- s/p Colonoscopy: large amount of old blood with clots was found in the entire colon, making visualization difficult. Lavage of the area was performed using greater than 500 mL, resulting in clearance with fair visualization. After extensive
washing, there was no identifiable source of active bleeding, however, there was evidence of predominantly left-sided diverticulosis, with few diverticulum at the hepatic flexure and ascending colon. No AVMs were visualized, however, despite copious
washing of the mucosa, it is possible a small AVM could have been missed. The terminal ileum appeared normal. No blood present in the TI. A few polyps were scattered throughout the colon, no polypectomy attempted given current active GI bleeding.
There was evidence of a prior end-to-side colo-colonic anastomosis at 25 cm proximal to the anus. This was patent and was characterized by healthy appearing mucosa.
- readmitted 11/24 with GI hemorrhage
- CT localizes bleeding to ascending colon
- again given K-centra and total 5 units pRBCs
- urgent IR angio procedure 11/26 negative
- HGB 8.5.
- advance diet to LRD
Hypotension secondary to GI bleed
Early hemorrhagic shock
- improved with transfusion.
Lactic acidosis - resolved
Febrile illness with urinary retention 11/26
due to UTI
Urine culture + for klebsiella, norman sensitive
- Blood culture no growth.
- S/P IV Zosyn 3 days, changed to Ceftin. day 3
- continue Gallego and eventual TOV
- continue Flomax
Iatrogenic volume overload
- from IVF and blood products
- Lasix 20mg x 1 dose
paroxysmal atrial fibrillation
- monitor tele
- hold Eliquis until OP Cardiology f/u scheduled 11/[address] Bernal
- continue propafenone
- continue metoprolol with hold parameters
Massive Ventral Hernia
- Patient states this occurred following partial colon resection.
- No current abdominal pain. No significant change in hernia per patient.
- Large ventral abdominal wall hernia containing bowel loops without complication.
DVT Prophylaxis: SCDs
Code: Full
Total time spent to see the patient, examine the patient on the floor, review data and lab results, discuss treatment plan with patient, nursing staff around 55 minutes.
Anticipated Discharge: Today
Subjective/Interval History
-
Date of Service: November 29, 2023
No chest pain
No sob
No abd pain
Objective Data
-
Labs:
Laboratory Results
11/29/23
06:57
WBC 6.3
Hgb 8.5 L
Hct 24.9 L
Plt Count 122 L D
Sodium 134 L
Potassium 3.6
Chloride 103
Carbon Dioxide 26
BUN 12
Creatinine 0.9
Glucose 105 H
Calcium 9.0
Vital Signs:
Vital Signs
Temp Pulse Resp BP Pulse Ox
98.5 F 83 22 123/53 95
11/29/23 07:27 11/29/23 07:50 11/29/23 07:27 11/29/23 07:50 11/29/23 10:45
I&O
11/28/23 11/29/23 11/30/23
06:59 06:59 06:59
Intake Total 2390 / 2390 1800 / 1800
Output Total 2200 / 2200 2950 / 2950
Balance 190 / 190 -1150 / -1150
--- NOTE | 2023-11-29 14:22 | CM ---
Addendum entered by Jade Merlos 11/29/23 15:43:
Per Dr Marshall- dc now cancelled due to bloody BM
Original Note:
CM reviewed chart and met with pt
VN recommended and referral to [facility] per pt request
IMM verbally reviewed- copy provided
TT/ Dr Marshall- VN order requested
Discharge Disposition- home with [facility]- family transport
[2023-11-29] MEDS: FERRLECIT 110 MG IV (14:57)
--- NOTE | 2023-11-29 14:58 | VNURNOTE ---
Home Health Liaison met with patient to discuss [facility] nurse visits, schedule and homebound status. Patient is agreeable and understands that visits at home will be 1-3 x per week to assess and teach medical management. Explained to patient that
nurses typically do not see patients the same day as discharge. [facility] brochure provided with contact information. Patient is aware that [facility] will contact them for start of care in 1-2 days after discharge from . [facility] referral completed in [facility].
[2023-11-29] MEDS: CEFTIN 500 MG PO (20:21)
[2023-11-29] MEDS: NON-FORMULARY ITEM 1 MG PO (20:21)
[2023-11-30 03:31] VITALS: BP 121/55
[2023-11-30 08:00] VITALS: BP 131/57
[2023-11-30 08:08] LABS: Hemoglobin 8.6 g/dL (13.0-18.0); Mean Corp Hgb Conc. 34.4 g/dL (33.0-37.0); Mean Corpuscular Hgb 32.6 pg (27.0-31.0); Mean Corpuscular Volume 94.7 fL (80.0-94.0); Mean Platelet Volume 10.8 fL (7.4-10.4); Platelet Count 134 10^3/uL (130-400); Red Blood Cell Count 2.64 10^6/uL (4.70-6.10); White Blood Cell Count 5.3 10^3/uL (4.8-10.8)
[2023-11-30 08:32] LABS: Blood Urea Nitrogen 12 mg/dl (9-20); Carbon Dioxide 26 mmol/L (22-30); Chloride 105 mmol/L (98-107); Estimated Creatinine Clearance 116 ml/min; Glucose 97 mg/dl (70-99); Potassium 3.5 mmol/L (3.5-5.1); Sodium 136 mmol/L (135-145); eGFR > 60.00
[2023-11-30] MEDS: PROTONIX 40 MG PO (08:43)
[2023-11-30] MEDS: FLOMAX 0.4 MG PO (08:43)
[2023-11-30] MEDS: TOPROL XL 50 MG PO (08:44)
[2023-11-30] MEDS: CEFTIN 500 MG PO (08:44)
[2023-11-30] MEDS: NON-FORMULARY ITEM 325 MG PO (08:44)
--- NOTE | 2023-11-30 09:28 | W.PN.HOSP.TC ---
Today's Communication/Plan
-
dc
Assessment / Plan
Assessment / Plan
Physical Exam
-
General: No Apparent Distress
HEENT: Normocephalic and Atraumatic
Respiratory: Negative Wheezes
Cardiac: Regular Rhythm
GI: Soft, + hernia
Musculoskeletal: No Edema
Neuro: AO x 3, he followed commands.
Skin: no jaundice
Psych: Calm
Assessment:
Lower GI bleed, recurrent
Acute blood loss anemia, enhanced by Eliquis
- previous hospitalization with K-centra given, 4 units and GI procedures as summarized in bold below
- s/p EGD: Normal esophagus. Z-line regular, 45 cm from the incisors. Edematous mucosa with mild central dimpling mucosa in the antrum. Biopsied.Normal examined duodenum.
- s/p Colonoscopy: large amount of old blood with clots was found in the entire colon, making visualization difficult. Lavage of the area was performed using greater than 500 mL, resulting in clearance with fair visualization. After extensive
washing, there was no identifiable source of active bleeding, however, there was evidence of predominantly left-sided diverticulosis, with few diverticulum at the hepatic flexure and ascending colon. No AVMs were visualized, however, despite copious
washing of the mucosa, it is possible a small AVM could have been missed. The terminal ileum appeared normal. No blood present in the TI. A few polyps were scattered throughout the colon, no polypectomy attempted given current active GI bleeding.
There was evidence of a prior end-to-side colo-colonic anastomosis at 25 cm proximal to the anus. This was patent and was characterized by healthy appearing mucosa.
- readmitted 11/24 with GI hemorrhage
- CT localizes bleeding to ascending colon
- again given K-centra and total 5 units pRBCs
- urgent IR angio procedure 11/26 negative
- HGB 8.5.
- advance diet to LRD
Hypotension secondary to GI bleed
Early hemorrhagic shock
- improved with transfusion.
Lactic acidosis - resolved
# Acute urinary retention
Failed voiding trial. Consulted urology.
# Febrile illness with urinary retention 11/26
due to UTI
Urine culture + for klebsiella, norman sensitive
- Blood culture no growth.
- S/P IV Zosyn 3 days, changed to Ceftin. Total 10 days.
- continue Flomax
Iatrogenic volume overload
- from IVF and blood products
- Lasix 20mg x 1 dose
paroxysmal atrial fibrillation
- monitor tele
- hold Eliquis until OP Cardiology f/u scheduled 11/[address] Bernal
- continue propafenone
- continue metoprolol with hold parameters
Massive Ventral Hernia
- Patient states this occurred following partial colon resection.
- No current abdominal pain. No significant change in hernia per patient.
- Large ventral abdominal wall hernia containing bowel loops without complication.
DVT Prophylaxis: SCDs
Code: Full
Total discharge time spent to see the patient, examine the patient on the floor, review data and lab results, discuss discharged plan with patient, nursing staff around 65 minutes.
Anticipated Discharge: Today
Subjective/Interval History
-
Date of Service: November 30, 2023
No chest pain
No rectal bleeding
No N/V, tolerating diet well
He wants to see urologist here. He could not void on his own.
Objective Data
-
Labs:
Laboratory Results
11/30/23
07:31
WBC 5.3
Hgb 8.6 L
Hct 25.0 L
Plt Count 134
Sodium 136
Potassium 3.5
Chloride 105
Carbon Dioxide 26
BUN 12
Creatinine 0.9
Glucose 97
Calcium 9.0
Vital Signs:
Vital Signs
Temp Pulse Resp BP Pulse Ox
98 F 91 18 131/57 97
11/30/23 08:00 11/30/23 08:44 11/30/23 08:00 11/30/23 08:44 11/30/23 08:00
I&O
11/29/23 11/30/23 12/01/23
06:59 06:59 06:59
Intake Total 1800 / 1800 1120 / 1120
Output Total 2950 / 2950 3800 / 3800
Balance -1150 / -1150 -2680 / -2680
--- NOTE | 2023-11-30 09:55 | CM ---
CM reviewed chart and noted dc order
Bedside meeting with pt who notes potential plan for ortiz on dc
He is concerned about caring at home
CM arranged for nursing to provide bedside teaching
Nursing also available to teach dtr if pt requires it
Update to [facility] who will also support ortiz care at home
TT/Dr Marshall requesting VN order
Discharge Disposition- home with [facility], family transport
[2023-11-30] MEDS: MIRALAX 17 GRAMS PO (10:24)
--- NOTE | 2023-11-30 11:53 | VNURNOTE ---
Met with patient again at bedside. Informed that [facility] can see him tomorrow for start of care visit. Tentative plan is home w/ortiz. Patient is anxious to have ortiz catheter again. Reviewed daily ortiz care, infection prevention w/patient.
Requested nurse Nilson to send patient home with ortiz leg bag. Reviewed [facility] contact number, patient has brochure.
--- NOTE | 2023-11-30 13:31 | W.DCSUMMARY ---
Discharge Summary
Discharge Data
Date of Admission: 11/25/23
Date of Discharge: 11/30/23
-
Pending Results: No
Hospital Course
68 years old male admitted with acute blood loss anemia and lower gastrointestinal bleeding. Patient came back to the hospital after a recent admission for the GI bleeding. Patient reported large bloody bowel movements and dizziness. His
hemoglobin was 8.6. Scan of the abdomen and pelvis showed extravasation of contrast within the mid ascending colon consistent with bleed. Patient was given multiple units of red blood cells and admitted to the intensive care unit for observation
and management. Patient also received Kcentra as he was taking Eliquis at home. Patient was evaluated by ICU doctor and supply and distribution manager. Patient went to interventional radiology for possible intervention, but there was no areas of active
contrast extravasation identified by arteriograms. No intervention was done in radiology. Eliquis was stopped. Gastroenterology doctor discussed with the patient and his daughter about the nature of diverticular bleeding. Patient was due for
screening colonoscopy with his colorectal surgeon Dr. Gomez and Dr. Jones. Patient was going to follow with his primary research and development manager Dr. Bernal regarding Eliquis treatment. Hemoglobin stabilized around 8.6 upon discharge. No further bloody
bowel movements. Patient received intravenous iron. Patient developed acute urinary retention. He was maintained on his home dose of Flomax. Patient was diagnosed with urine tract infection also and received antibiotic. He was seen by
urologist Dr. Crum. Patient failed voiding trial and was given the option to do self-catheterization or indwelling catheter. Patient wanted indwelling catheter. Patient was discharged with home care services to follow-up with urologist and
his outpatient doctors. He remained hemodynamically stable. Patient received total of 6 units of blood during this admission. Patient was discharged in a stable condition.
Discharge Plan
-
Patient Disposition: Home with Home Care
Discharge Diagnosis/Procedures: Acute blood loss anemia due to lower GI bleeding. Holding Eliquis pending primary research and development manager evaluation. You received blood transfusion and IV Iron. You were followed by GI doctor.
Acute urinary retention, follow with urologist.
UTI, you received IV antibiotic, finish course of oral antibiotic at home.
Diet: As tolerated
Referrals:
Lenny Crum MD [Active] - in one to two weeks
David Bernal MD [Non-Admitting Privileges] - 12/01/23
UNKNOWN - PT DOES,NOT KNOW [Family Provider] -
Prescriptions:
New
cefuroxime axetil 500 mg Tablet
500 mg PO BID Qty: 12 0RF
Continued
propafenone 325 mg Capsule,Extended Release 12 Hr
325 mg PO Q12H
tamsulosin 0.4 mg Capsule
0.4 mg PO DAILY
metoprolol succinate 50 mg tablet extended release 24 hr
50 mg PO DAILY
polyethylene glycol 3350 [HealthyLax] 17 gram Powder In Packet
17 g PO DAILY Qty: 30 0RF
Discontinued
Eliquis 5 mg Tablet
5 mg PO BID
Discharge Orders:
Discharge Patient (As Directed); Ordered 11/30/23
Ordered By: Nga Marshall
Discharge Date and Time
Discharge Date/Time: 11/30/23 16:17
Print Language: FIJIAN
[2023-11-30] MEDS: FERRLECIT IV (14:12)
[2023-11-30 15:28] VITALS: BP 118/59
== END 2023-11-30 16:17 | disposition home health service (06) | DRG 377 ==
LOC: 4 EAST ACU 04:07
PROVIDERS: Emergency Medicine; Internal Medicine; Nurse Practitioner Family; ADMITTING PHYSICIAN Hospitalist; ATTENDING PHYSICIAN Internal Medicine; CONSULT PHYSICIAN Internal Medicine; CONSULT PHYSICIAN Internal Medicine Critical Care Medicine; EMERGENCY PHYSICIAN Emergency Medicine
PROC: 30283B1 Transfusion of Nonautologous 4-Factor Prothrombin Complex Concentrate into Vein, Percutaneous Approach (ICD-10-PCS; 2023-11-25)
PROC: 30233N1 Transfusion of Nonautologous Red Blood Cells into Peripheral Vein, Percutaneous Approach (ICD-10-PCS; 2023-11-25)
DX: K57.31 Diverticulosis of large intestine without perforation or abscess with bleeding (principal); R57.1 Hypovolemic shock; R57.8 Other shock; D62 Acute posthemorrhagic anemia; N39.0 Urinary tract infection, site not specified; E87.20 Acidosis, unspecified; D68.32 Hemorrhagic disorder due to extrinsic circulating anticoagulants; J45.909 Unspecified asthma, uncomplicated; I10 Essential (primary) hypertension; T45.515A Adverse effect of anticoagulants, initial encounter; B96.1 Klebsiella pneumoniae [K. pneumoniae] as the cause of diseases classified elsewhere; I48.0 Paroxysmal atrial fibrillation; K43.9 Ventral hernia without obstruction or gangrene; G47.33 Obstructive sleep apnea (adult) (pediatric); E78.00 Pure hypercholesterolemia, unspecified; N40.0 Benign prostatic hyperplasia without lower urinary tract symptoms; K52.9 Noninfective gastroenteritis and colitis, unspecified; Z79.01 Long term (current) use of anticoagulants; Z79.899 Other long term (current) drug therapy; Z90.49 Acquired absence of other specified parts of digestive tract; Z87.19 Personal history of other diseases of the digestive system; Z98.890 Other specified postprocedural states; Z91.041 Radiographic dye allergy status
CPT/HCPCS: 36246; 71046; 74174; 75726; 76937; 80048; 80053; 81003; 81015; 83735; 84100; 85014; 85018; 85025; 85027; 85610; 85730; 86850; 86900; 86901; 86920; 87040; 87077; 87086; 87186; 93005; 96361; 96374; 96375; 97116; 97162; 97166; 99291; C1769; C1887; J2916; J7168; P9016; Q9967

== ENCOUNTER 2023-12-22 06:11 | Day surgery (SDC) | payer MEDICARE, BC, SELFPAY ==
--- NOTE | 2023-12-08 11:22 | PTCARENOTE ---
Ramona in Dr. Thomas office made aware of CXR result from 11/27/2023.
--- NOTE | 2023-12-08 15:26 | PTCARENOTE ---
Patients 11/26 CXR abnormal- hgb 8.6 was collected on 11/29. Reviewed by Dr. Ang, no additional interventions indicated.
--- NOTE | 2023-12-09 15:25 | PTCARENOTE ---
Ramona in Dr. Crum's office made aware pt took weekly dose of Ozempic this morning.
[2023-12-22] VITALS (13 sets, daily range): BP systolic 119–158; BP diastolic 53–93; BMI 34.3; BMI 34.2
[2023-12-22] MEDS: NORMOSOL-R/PLASMALYTE-A 1000 IV (11:41)
[2023-12-22] MEDS: DILAUDID 0.5 MG IV (15:11)
[2023-12-22] MEDS: Pyridium 200 MG PO (15:32)
[2023-12-22] MEDS: DETROL LA 4 MG PO (15:32)
--- NOTE | 2023-12-22 16:44 | PTCARENOTE ---
Pt arrived from PACU a&ox3, in no distress, pt is on CBI, Pt has knee high ami hose and knee high scd's. Pt is in mild discomfort post procedure. vitals are stable, Call mendiola within reach, menu and phone given to call and order dinner.
[2023-12-22] MEDS: TYLENOL 650 MG PO (18:19)
[2023-12-22] MEDS: CIPRO 500 MG PO (21:27)
[2023-12-22] MEDS: NON-FORMULARY ITEM 325 MG PO (21:28)
[2023-12-23 06:44] LABS: % Basophils 0.1 % (0-2); % Immature Granulocytes 0.7 % (0-0.5); % Lymphocytes 5.2 % (20.5-51.1); % Monocytes 4.8 % (1.7-9.3); % Neutrophils 89.2 % (42.2-75.2); Absolute Immature Granulocytes 0.1 10^3/uL (0-0.05); Absolute Lymphocytes 0.6 10^3/uL (1.2-3.4); Absolute Monocytes 0.6 10^3/uL (0.1-0.6); Absolute Neutrophils 10.5 10^3/uL (1.4-6.5); Hematocrit 32.9 % (39.0-52.0); Hemoglobin 11.4 g/dL (13.0-18.0); Mean Corp Hgb Conc. 34.7 g/dL (33.0-37.0); Mean Corpuscular Hgb 33.4 pg (27.0-31.0); Mean Corpuscular Volume 96.5 fL (80.0-94.0); Mean Platelet Volume 10.3 fL (7.4-10.4); Nucleated Red Blood Cells % 0 % (-); Platelet Count 103 10^3/uL (130-400); Red Blood Cell Count 3.41 10^6/uL (4.70-6.10); Red Cell Dist. Width 15.1 % (11.5-14.5); White Blood Cell Count 11.8 10^3/uL (4.8-10.8)
[2023-12-23 07:15] VITALS: BP 140/55
[2023-12-23 07:20] LABS: Blood Urea Nitrogen 18 mg/dl (9-20); Calcium 9.7 mg/dl (8.4-10.2); Carbon Dioxide 23 mmol/L (22-30); Chloride 105 mmol/L (98-107); Estimated Creatinine Clearance 113 ml/min; Glucose 108 mg/dl (70-99); Potassium 4.6 mmol/L (3.5-5.1); Sodium 136 mmol/L (135-145); eGFR > 60.00
[2023-12-23] MEDS: CIPRO 500 MG PO ×2 (09:23→20:05)
[2023-12-23] MEDS: FLOMAX 0.4 MG PO (09:23)
[2023-12-23] MEDS: NON-FORMULARY ITEM 325 MG PO ×2 (09:23→20:06)
[2023-12-23] MEDS: MIRALAX 17 GRAMS PO (09:23)
[2023-12-23] MEDS: TOPROL XL 50 MG PO (09:23)
--- NOTE | 2023-12-23 10:19 | W.PN.URO.CBU ---
Today's Communication / Plan
-
stop CBI
remove Fley
voiding trial
discharge
Assessment / Plan
-
stable
Diagnosis
-
Date of Service: December 23, 2023
-
Patient Diagnosis: BPH with urinary retention and UTI
Post Op Day:
1
Subjective
-
catheter bother
Objective
-
Vital Signs
Temp Pulse Resp BP Pulse Ox
98.5 F 82 18 140/55 96
12/23/23 07:15 12/23/23 09:23 12/23/23 07:15 12/23/23 09:23 12/23/23 09:18
Intake and Output
12/22/23 12/23/23 12/24/23
06:59 06:59 06:59
Intake Total 680 / 680
Output Total 2160 / 2160
Balance -1480 / -1480
Intake:
Oral fluids 480 / 480
IV fluids (Total) 200 / 200
Normosol 200 / 200
Output:
True Urine Output from CBI 2160 / 2160
Laboratory Results
12/23/23 05:36
12/23/23 05:36
Physical Exam
-
General - well developed, well nourished, no acute distress
Chest - clear bilaterally
Abdomen - soft, non-tender, positive bowel sounds, no CVAT, no incisional pain or distention
Genitalia - Gallego with clear out flow with CBI on
[2023-12-23 10:27] VITALS: BMI 34.2
--- NOTE | 2023-12-23 12:03 | CM ---
Patient seen at bedside. Patient states that he lives alone in a ranch style home. Patient stated that he has a CPAP at home that he uses. Patient stated his brother is staying with him until Wednesday or Wednesday, and will transport him home. Patient
is [facility] and initially was resistant to discharge home today, pending Gallego he did have [facility] services in the past but if no Gallego needed does not feel that he will need VN. CM updated nursing and currently no plan for discharge home with Gallego. CM
will continue to follow for discharge planning needs.
Plan; home with no needs anticipated.
--- NOTE | 2023-12-23 12:08 | PTCARENOTE ---
Gallego dc'd after CBI's completed; pt for DC home after voiding 200 ml; urinal at bedside. Will continue to monitor.
[2023-12-23 15:50] VITALS: BP 129/65
--- NOTE | 2023-12-23 15:52 | PTCARENOTE ---
Pt AAO x3, sl anxious at times. SPARKS well, ambulatory in room/almazan, no c/o weakness/dizziness. VSS. On room air- pulseox 98%. Abd large, soft; pt has large abd hernia. Pt only voided 50 ml punch-colored urine after Gallego DC'd earlier; will
continue to monitor output; pt denies urgency/discomfort at this time. Resting in bed at present. Will continue to monitor.
--- NOTE | 2023-12-23 17:09 | PTCARENOTE ---
Pt able to void only 150 ml dark -punch-colored urine after Gallego dc'd earlier in shift; c/o 'feel uncomfortable'. Pt bladder scanned for 601 ml. pt refusing to be dc'd home today. Dr. Butts notified. Will continue to monitor.
--- NOTE | 2023-12-23 17:48 | PTCARENOTE ---
#[address] Gallego re-inserted without difficulty; drained 800 ml dark punch-colored urine, no clots noted. Leg strap applied to Rt thigh. CBI's resumed to keep free of clots. Pt katelynn well, resting comfortably at present. Will continue to monitor.
--- NOTE | 2023-12-23 18:29 | W.PN.URO.CBU ---
Today's Communication / Plan
-
hn irrgate prn major clots no flow otherwise rmove ortiz 0600
Assessment / Plan
-
stablebut ortiz rplaced 800cc drained no clots repea vt in am but pt aware that may sravanthi to go home with ortiz
Diagnosis
-
Date of Service: December 23, 2023
-
Patient Diagnosis:
Post Op Day:
Patient Diagnosis: BPH with urinary retention and UTI
Post Op Day:
1
Subjective
-
could not void
Objective
-
Vital Signs
Temp Pulse Resp BP Pulse Ox
97.8 F 71 18 129/65 98
12/23/23 15:50 12/23/23 15:50 12/23/23 15:50 12/23/23 15:50 12/23/23 15:52
Intake and Output
12/22/23 12/23/23 12/24/23
06:59 06:59 06:59
Intake Total 680 / 680
Output Total 2160 / 2160 400 / 400
Balance -1480 / -1480 -400 / -400
Intake:
Oral fluids 480 / 480
IV fluids (Total) 200 / 200
Normosol 200 / 200
Output:
True Urine Output from CBI 2160 / 2160 400 / 400
Laboratory Results
12/23/23 05:36
12/23/23 05:36
Review of Systems
-
: Difficulty Voiding
Physical Exam
-
General - well developed, well nourished, no acute distress
Chest - clear bilaterally
Abdomen - soft, non-tender, positive bowel sounds, no CVAT, no incisional pain or distention
Genitalia - normal
Rectal - normal
Skin - warm & dry with no rash
Neuro - AOx3, no motor deficits
Extremities - no clubbing, no cyanosis, no edema
Incision - clean, dry
Dressing - clean, dry, intact
Care Review
Data Reviewed
Discussed with: Nursing
[2023-12-23 23:50] VITALS: BP 124/64
--- NOTE | 2023-12-24 06:28 | PTCARENOTE ---
CBI D/C and diana removed @ 6000 as per order without issues. Pt understands that he will be in voiding trial this morning. Will follow.
[2023-12-24 07:05] VITALS: BP 145/74
--- NOTE | 2023-12-24 08:35 | W.PN.URO.CBU ---
Today's Communication / Plan
-
voiding trial
then discharge
Assessment / Plan
-
resolved hematuria
Diagnosis
-
Date of Service: December 24, 2023
-
Post Op Day:
Patient Diagnosis: BPH with urinary retention and UTI
Post Op Day:
2
Subjective
-
feels better today -- tolerated Gallego overnight and its removal at 0600; no urge to void yet
Objective
-
Vital Signs
Temp Pulse Resp BP Pulse Ox
97.8 F 66 18 145/74 96
12/24/23 07:05 12/24/23 07:05 12/24/23 07:05 12/24/23 07:05 12/24/23 07:05
Intake and Output
12/23/23 12/24/23 12/25/23
06:59 06:59 06:59
Intake Total 680 / 680 1044 / 1044
Output Total 2160 / 2160 2900 / 2900
Balance -1480 / -1480 -1856 / -1856
Intake:
Oral fluids 480 / 480 1044 / 1044
IV fluids (Total) 200 / 200
Normosol 200 / 200
Output:
Urine, Voided 200 / 200
True Urine Output from CBI 2160 / 2160 2700 / 2700
Laboratory Results
12/23/23 05:36
12/23/23 05:36
Physical Exam
-
General - well developed, well nourished, no acute distress
Abdomen - soft, non-tender, no distention
Skin - warm & dry with no rash
Neuro - AOx3, no motor deficits
Extremities - no clubbing, no cyanosis, no edema
[2023-12-24] MEDS: MIRALAX 17 GRAMS PO (09:34)
[2023-12-24] MEDS: CIPRO 500 MG PO (09:34)
[2023-12-24] MEDS: FLOMAX 0.4 MG PO (09:34)
[2023-12-24] MEDS: TOPROL XL 50 MG PO (09:34)
[2023-12-24] MEDS: NON-FORMULARY ITEM 325 MG PO (09:35)
[2023-12-24] MEDS: LASIX 20 MG PO (09:39)
[2023-12-24 11:22] VITALS: BP 118/63
[2023-12-24 11:55] VITALS: BP 118/63
--- NOTE | 2023-12-24 14:33 | CM ---
Addendum entered by Chiqui Marcus 12/24/23 14:35:
No need for IMM, as Vu was admitted to same day surgery.
Original Note:
Vu is being discharged today to home. His brother will be driving him home and plans to stay for a few days to make sure Vu is doing well.
Plan: Discharge to home with no needs identified.
== END 2023-12-24 16:27 | disposition home or self-care (01) ==
LOC: SDS 06:11
PROVIDERS: ATTENDING PHYSICIAN Specialist
DX: N40.1 Benign prostatic hyperplasia with lower urinary tract symptoms (principal); R33.8 Other retention of urine; N39.0 Urinary tract infection, site not specified; Y84.6 Urinary catheterization as the cause of abnormal reaction of the patient, or of later complication, without mention of misadventure at the time of the procedure; B96.1 Klebsiella pneumoniae [K. pneumoniae] as the cause of diseases classified elsewhere; B96.5 Pseudomonas (aeruginosa) (mallei) (pseudomallei) as the cause of diseases classified elsewhere
CPT/HCPCS: 52601; 88305; 88312; 80048; 85025; 86850; 86900; 86901; 87077; 87086; 87186

== ENCOUNTER 2024-01-16 06:12 | Emergency (ER) | payer MEDICARE, BC, SELFPAY ==
[2024-01-16 06:14] VITALS: BP 155/92; BMI 35.7
--- NOTE | 2024-01-16 06:18 | ED.GENMED ---
History of Present Illness
General
Chief Complaint: Dizziness
Source: patient
Exam Limitations: none
Time Seen by Provider: 01/16/24 06:17
History of Present Illness
History of Present Illness:
See MDM
Past History
Past History
ED Past Medical History: Arrthythmia (Atrial fibrillation), HTN, Hypercholesterolemia and Other (Diverticulitis/diverticulosis)
ED Past Surgical History: Other
Social History
Tobacco: Other
Alcohol: Other
Drug: None
Personal: Single
Living: alone
Employment: Other
Family History
Family History: Other
Phy Exam
Physical Exam
Physical Exam:
See MDM
Course
Orders/Labs/Results
Orders:
Orders
01/16/24 06:17
Electrocardiogram (*1) Urgent
Reason for Study: Vertigo / Dizzy
EKG- Treatment ONCE
0.9% Sodium Chloride 1000 ml [Nss] 1,000 ml IV BOLUS
Meclizine [Antivert] 25 mg PO NOW STA
01/16/24 06:29
Complete Blood Count/With Diff Urgent
Comprehensive Metabolic Panel Urgent
Abnormal Lab Results
01/16/24
06:29
RBC 4.03 L 10^6/uL
(4.70-6.10)
Hgb 12.9 L g/dL
(13.0-18.0)
Hct 38.1 L %
(39.0-52.0)
MCV 94.5 H fL
(80.0-94.0)
MCH 32.0 H pg
(27.0-31.0)
Immature Gran % 0.6 H %
(0-0.5)
Lymphocytes % 19.4 L %
(20.5-51.1)
Monocytes % 9.8 H %
(1.7-9.3)
BUN 26 H mg/dl
(9-20)
Glucose 110 H mg/dl
(70-99)
01/16/24 06:29
01/16/24 06:29
Vital Signs
Initial and Last Documented VS:
Initial Vital Signs
Temp Pulse Resp BP Pulse Ox
98.6 F 84 18 155/92 98
01/16/24 06:14 01/16/24 06:14 01/16/24 06:14 01/16/24 06:14 01/16/24 06:14
Last Documented Vital Signs
Temp Pulse Resp BP Pulse Ox
98.6 F 82 14 167/86 96
01/16/24 06:14 01/16/24 07:15 01/16/24 07:00 01/16/24 07:00 01/16/24 07:15
MDM/Problems Addressed
Differential Diagnosis Includes:
HPI and MDM Narrative:
68-year-old male presenting with dizziness. Patient states he woke up and saw the room spinning. He tried to rest in bed but called EMS for persistent symptoms. Patient states it is worse when he opens his eyes and with certain head movements.
He has had vertigo in the past. Patient called because he is mostly worried about possible strokes given that he has paroxysmal A-fib and not anticoagulated due to bleeding risk.
On exam, he is well-appearing nontoxic. He has no cerebellar signs. He does have fatigable horizontal nystagmus on the right. Will give meclizine, obtain EKG, give IV fluids and continue to reassess
Physical exam
General: Well appearing and non-toxic
HEENT: protecting airway. Horizontal nystagmus to the right. Dry mucous membranes
Neck: appears supple
CV: No evidence of cyanosis. Regular rate and rhythm
Resp: No accessory muscle use
Abd: Non-distended
Extremities: No deformities
Neuro: alert. Normal finger-nose bilaterally
Psych: Normal affect
Skin: Intact
Problems Addressed including Acute and Chronic Conditions affecting care:
1. Vertigo
Acuity: acute
Prognosis: stable
Details: Likely benign paroxysmal positional vertigo. It is reproducible. Will give meclizine and obtain EKG and blood work
Updates
On reassessment, patient feeling better. Patient able to ambulate without difficulty and feels comfortable going home. Discussed outpatient MRI if symptoms persist
Differential Diagnosis (but not limited to): Vertigo, dehydration
Testing considered: CT head but he has normal finger-nose
Drug therapy (if applicable): OTC meds, please see d/c instruction regarding Rx drugs
Amount and/or Complexity of Data Reviewed
Clinical info obtained from: Patient
External data reviewed: N/A
Labs I independently reviewed (but not limited to): White blood cell count normal
Radiology: N/A
Pulse Ox: not hypoxic
EKG independently reviewed: Sinus rhythm, left axis, no STEMI
[employer]: Sinus rhythm
Critical Care: Sinus rhythm
Risk of Complication:
Social Determinants of health: Good social support
Discussed with other providers: N/A
Escalation of Care includes Admit/Obs: After being observed in the Emergency Department, pt stable for discharge.
Occasional wrong word or 'sound a like' substitutions may have occurred due to the inherent limitations of voice recognition software. Read the chart carefully and recognize, using context, where substitutions have occurred.
*Critical Care Note
Total Time (30-74mins, 75-104mins- exclusive of procedures): Not Applicable
ED Attending Note
-
Portions of this chart may have been created with voice recognition software.� Occasional wrong word or��sound alike� substitutions may have occurred due to the inherent limitations of voice recognition software.
Discharge Plan
Departure
Patient Disposition: Home (Routine Discharge)
Date of Disposition: 01/16/24
Time of Disposition: 08:09
Patient with high blood pressure during this ER visit?: Yes
Discharge Problem:
Vertigo
Instructions: Vertigo (a Type of Dizziness) (DC)
Prescriptions:
New
meclizine [Antivert] 25 mg Tablet,Chewable
25 mg PO BIDPRN PRN (Reason: nausea or vertigo) Qty: 10 0RF
No Action
propafenone 325 mg Capsule,Extended Release 12 Hr
325 mg PO Q12H
tamsulosin 0.4 mg Capsule
0.4 mg PO DAILY
metoprolol succinate 50 mg tablet extended release 24 hr
50 mg PO DAILY
polyethylene glycol 3350 [Miralax] 17 gram Powder In Packet
17 g PO DAILY
Ozempic 0.25 mg or 0.5 mg (2 mg/3 mL) Pen Injector
2 mg SC .SAT.
budesonide-formoterol [Symbicort] 80-4.5 mcg/actuation Hfa Aerosol Inhaler
1 puff INHALATION DAILY PRN (Reason: asthma flare)
Referrals:
CITLALY MOONEY MD [Family Provider] -
Activity Restrictions/Additional Instructions:
Please return for any worsening symptoms.
You may return at any time if you have further concerns.
Please follow up with your doctor at the first available appointment, preferably this week. If symptoms persist, please talk to your doctor about obtaining outpatient MRI.
Thank you for choosing [facility].
Interventions
Interventions:
*Risk Screen - Suicide Last Done: 01/16/24 06:14
*General Assessment Last Done: 01/16/24 06:14
*Neglect/Abuse Screening Last Done: 01/16/24 06:14
ED- Fall Risk Assessment Last Done: 01/16/24 06:14
*ED COVID-19 Vaccine History Last Done: 01/16/24 06:14
ED- Neurological Assessment Last Done: 01/16/24 06:20
ED- Cardiac Assessment Last Done: 01/16/24 06:20
ED Swallowing Screen Last Done: 01/16/24 06:20
Discharge Date and Time
Print Language: DANISH
[2024-01-16 06:19] VITALS: BP 155/92
[2024-01-16] MEDS: ANTIVERT 25 MG PO ×2 (06:32→08:57)
[2024-01-16] MEDS: NSS 1000 IV (06:33)
[2024-01-16 06:40] LABS: % Basophils 0.8 % (0-2); % Eosinophils 3.7 % (0-6); % Immature Granulocytes 0.6 % (0-0.5); % Lymphocytes 19.4 % (20.5-51.1); % Monocytes 9.8 % (1.7-9.3); % Neutrophils 65.7 % (42.2-75.2); Absolute Basophils 0.1 10^3/uL (0-0.2); Absolute Eosinophils 0.2 10^3/uL (0-0.7); Absolute Lymphocytes 1.3 10^3/uL (1.2-3.4); Absolute Monocytes 0.6 10^3/uL (0.1-0.6); Absolute Neutrophils 4.3 10^3/uL (1.4-6.5); Hematocrit 38.1 % (39.0-52.0); Hemoglobin 12.9 g/dL (13.0-18.0); Mean Corp Hgb Conc. 33.9 g/dL (33.0-37.0); Mean Corpuscular Volume 94.5 fL (80.0-94.0); Mean Platelet Volume 9.8 fL (7.4-10.4); Nucleated Red Blood Cells % 0 % (-); Platelet Count 143 10^3/uL (130-400); Red Blood Cell Count 4.03 10^6/uL (4.70-6.10); Red Cell Dist. Width 13.8 % (11.5-14.5); White Blood Cell Count 6.6 10^3/uL (4.8-10.8)
[2024-01-16 06:51] LABS: ALT (SGPT) 27 U/L (0-50); AST (SGOT) 24 U/L (17-59); Albumin 3.8 g/dl (3.5-5.0); Alkaline Phosphatase 81 U/L (38-126); Blood Urea Nitrogen 26 mg/dl (9-20); Carbon Dioxide 24 mmol/L (22-30); Chloride 106 mmol/L (98-107); Estimated Creatinine Clearance 115 ml/min; Glucose 110 mg/dl (70-99); Potassium 4.5 mmol/L (3.5-5.1); Sodium 140 mmol/L (135-145); Total Bilirubin 0.4 mg/dl (0.2-1.3); Total Protein 6.6 g/dl (6.3-8.2); eGFR > 60.00
[2024-01-16 07:00] VITALS: BP 167/86
== END 2024-01-16 09:53 | disposition home or self-care (01) ==
LOC: EMR 06:12
PROVIDERS: EMERGENCY PHYSICIAN Student in an Organized Health Care Education/Training Program; FAMILY PHYSICIAN Internal Medicine
DX: R42 Dizziness and giddiness (principal); I48.0 Paroxysmal atrial fibrillation; I10 Essential (primary) hypertension; E78.00 Pure hypercholesterolemia, unspecified; K57.90 Diverticulosis of intestine, part unspecified, without perforation or abscess without bleeding; Z91.041 Radiographic dye allergy status
CPT/HCPCS: 99284; 96360; 80053; 85025; 93005

== ENCOUNTER → 2024-03-03 06:20 | Day surgery (SDC) | payer MEDICARE, BC, SELFPAY ==
[2024-03-03 07:39] LABS: Glucose - Point of Care 93 mg/dl (70-99)
== END ==
LOC: GI 06:20
PROVIDERS: ATTENDING PHYSICIAN Specialist
DX: D12.3 Benign neoplasm of transverse colon (principal); K63.89 Other specified diseases of intestine; K57.30 Diverticulosis of large intestine without perforation or abscess without bleeding; Z86.0100 Personal history of colon polyps, unspecified; Z98.0 Intestinal bypass and anastomosis status
CPT/HCPCS: 45385; 45380; 88305; 82962

== ENCOUNTER 2024-07-24 13:26 | Emergency (ER) | payer MEDICARE, BC, SELFPAY ==
[2024-07-24] VITALS (10 sets, daily range): BP systolic 131–183; BP diastolic 74–108; PULSE 63–68; BMI 36.9
[2024-07-24 13:59] LABS: % Basophils 0.7 % (0-2); % Eosinophils 6.3 % (0-6); % Lymphocytes 16.9 % (20.5-51.1); % Monocytes 9.7 % (1.7-9.3); % Neutrophils 65.4 % (42.2-75.2); Absolute Basophils 0.1 10^3/uL (0-0.2); Absolute Eosinophils 0.5 10^3/uL (0-0.7); Absolute Immature Granulocytes 0.1 10^3/uL (0-0.05); Absolute Lymphocytes 1.2 10^3/uL (1.2-3.4); Absolute Monocytes 0.7 10^3/uL (0.1-0.6); Absolute Neutrophils 4.7 10^3/uL (1.4-6.5); Mean Corp Hgb Conc. 33.3 g/dL (33.0-37.0); Mean Corpuscular Hgb 32.1 pg (27.0-31.0); Mean Corpuscular Volume 96.4 fL (80.0-94.0); Mean Platelet Volume 9.7 fL (7.4-10.4); Nucleated Red Blood Cells % 0 % (-); Platelet Count 145 10^3/uL (130-400); Red Blood Cell Count 4.67 10^6/uL (4.70-6.10); Red Cell Dist. Width 13.5 % (11.5-14.5); White Blood Cell Count 7.2 10^3/uL (4.8-10.8)
[2024-07-24 14:11] LABS: APTT 32.3 Sec (23.4-35.0); INR 1.14; PT 14.9 Sec (11.4-14.6)
[2024-07-24 14:20] LABS: ALT (SGPT) 34 U/L (0-50); AST (SGOT) 31 U/L (17-59); Albumin 3.7 g/dl (3.5-5.0); Alkaline Phosphatase 79 U/L (38-126); Blood Urea Nitrogen 20 mg/dl (9-20); Calcium 10.1 mg/dl (8.4-10.2); Carbon Dioxide 27 mmol/L (22-30); Chloride 106 mmol/L (98-107); Glucose 99 mg/dl (70-99); Potassium 4.7 mmol/L (3.5-5.1); Sodium 139 mmol/L (135-145); Total Bilirubin 1.1 mg/dl (0.2-1.3); Total Protein 6.8 g/dl (6.3-8.2); eGFR > 60.00
--- NOTE | 2024-07-24 16:02 | ED.CVA ---
History of Present Illness
General
Chief Complaint: CVA/TIA Symptoms
Source: patient and family
Exam Limitations: none
Time Seen by Provider: 07/24/24 15:37
Nursing documentation reviewed up to this point in time: agreed with
Onset of Stroke Symptoms
Onset of symptoms known: Yes
Date of onset of symptoms: 07/24/24
Time of onset of symptoms: 13:30
Time pt last seen normal is known: Yes
Date last time pt seen normal: 07/24/24
Time last time pt seen normal: 13:30
History of Present Illness
History of Present Illness:
68-year-old male A-fib status post GI bleeding neurologic bleeding on Eliquis, underwent Watchman procedure by Dr. Fernandez [facility] a few days ago, recovering well, today around 130 or so felt lightheaded like he just stood up so he had
not stood up, no arm or leg weakness no slurred speech said no chest pain no shortness of breath no palpitations no bloody stools, symptoms persisted until he arrived here basically gone, speech is clear, is cooperative moving all extremities, he
has been taking his Eliquis as prescribed post procedure
Past History
Past History
ED Past Medical History: Arrthythmia (Atrial fibrillation), HTN, Hypercholesterolemia and Other (Diverticulitis/diverticulosis)
ED Past Surgical History: Other (Diverticulitis bowel resection resulting in large hernia)
Social History
Tobacco: Non-smoker
Alcohol: Other
Drug: None
Personal: Single
Living: alone
Employment: Retired
Family History
Family History: Other
Review of Systems
Review of Systems
All Other Systems: Not applicable
Constitutional: Denies fever or fatigue
EENT: Reports no symptoms
Respiratory: Reports no symptoms
Cardiac: Denies chest pain or palpitations
ABD/GI: Reports no symptoms
: Reports no symptoms
Musculoskeletal: Reports no symptoms
Neurological: Reports other (Lightheaded); Denies dizzy, headache or numbness
Phy Exam
Physical Exam
Physical Exam:
Physical Exam
General: no apparent distress, not acutely ill
Neck: No jaundice
Heart: Regular
Lungs: no acute respiratory distress. clear bilaterally
Abdomen: Large lower abdominal hernia without tenderness
Neuro: alert and oriented. no focal neurological deficits normal finger-nose bilaterally muscle strength 5 out of 5, no facial palsy clear speech able to stand on each leg independently
Skin: no rash
Psychiatric: well kept. interactive and cooperative
Extremities: no edema.
Course
Orders/Labs/Results
Orders:
Orders
07/24/24 13:38
ECG [Electrocardiogram (*1)] Urgent
Reason for Study: Fatigue / Weakness
07/24/24 13:39
EKG- Treatment ONCE
07/24/24 13:51
Complete Blood Count/With Diff Urgent
Comprehensive Metabolic Panel Urgent
PT/INR [Prothrombin Time] Urgent
PTT Urgent
07/24/24 15:52
CT Head W/o Iv Contrast Urgent
Comment:
Reason For Exam: light headed watchman
Orthostatic VS- Treatment ONCE
07/24/24 16:11
Cardiac Monitoring- Treatment ONCE
Abnormal Lab Results
07/24/24
13:51
RBC 4.67 L 10^6/uL
(4.70-6.10)
MCV 96.4 H fL
(80.0-94.0)
MCH 32.1 H pg
(27.0-31.0)
Abs Immat Gran (auto) 0.1 H 10^3/uL
(0-0.05)
Absolute Monos (auto) 0.7 H 10^3/uL
(0.1-0.6)
Immature Gran % 1.0 H %
(0-0.5)
Lymphocytes % 16.9 L %
(20.5-51.1)
Monocytes % 9.7 H %
(1.7-9.3)
Eosinophils % 6.3 H %
(0-6)
PT 14.9 H Sec
(11.4-14.6)
07/24/24 13:51
07/24/24 13:51
Vital Signs
Initial and Last Documented VS:
Initial Vital Signs
Temp Pulse Resp BP Pulse Ox
98.4 F 65 18 183/108 98
07/24/24 13:30 07/24/24 13:30 07/24/24 13:30 07/24/24 13:30 07/24/24 13:30
Last Documented Vital Signs
Temp Pulse Resp BP Pulse Ox
98.4 F 62 18 131/79 98
07/24/24 13:30 07/24/24 16:53 07/24/24 16:53 07/24/24 16:53 07/24/24 16:53
MDM/Problems Addressed
Differential Diagnosis Includes:
Orthostasis, electrolyte abnormality arrhythmia intracerebral hemorrhage CVA
*Radiology
Radiology exam reviewed: radiology read reviewed
*Pulse Oximetry
Patient hypoxic: no
*EKG
Interpreted by ED Provider?: Yes
Interpretation: abnormal
Comparison EKG: no comparison EKG present
Heart Rate: 78
Rate: normal
Rhythm: sinus
Ischemia: non-specific ST changes
*Belt S[employer] Stone Interpretation
Rate: normal
Interpretation: normal
Heart Rate: 78
Rhythm: sinus
*Critical Care Note
Total Time (30-74mins, 75-104mins- exclusive of procedures): Not Applicable
Update Note
Update Note:
Update labs noted CT noted no hemorrhage does have some opacification of the sinus which could explain some of his symptoms
ED Attending Note
-
Portions of this chart may have been created with voice recognition software.� Occasional wrong word or��sound alike� substitutions may have occurred due to the inherent limitations of voice recognition software.
Discharge Plan
Departure
Patient Disposition: Home (Routine Discharge)
Date of Disposition: 07/24/24
Time of Disposition: 17:21
Patient with high blood pressure during this ER visit?: No
Condition: Good
Discharge Problem:
Intermittent lightheadedness
Instructions: Dizziness in adults - ED discharge instructions, Sinusitis in adults - ED discharge instructions
Prescriptions:
New
guaifenesin [Mucinex] 1,200 mg tablet extended release 12hr
1,200 mg PO BID PRN (Reason: Congestion) Qty: 20 0RF
mometasone 50 mcg/actuation spray,non-aerosol
2 spray intranasal DAILY PRN (Reason: Nasal congestion) Qty: 17 0RF
No Action
propafenone 325 mg Capsule,Extended Release 12 Hr
325 mg PO Q12H
metoprolol succinate 50 mg tablet extended release 24 hr
50 mg PO DAILY
polyethylene glycol 3350 [Miralax] 17 gram Powder In Packet
17 g PO DAILY
budesonide-formoterol [Symbicort] 80-4.5 mcg/actuation Hfa Aerosol Inhaler
1 puff INHALATION R DAILYPRN PRN (Reason: asthma flare)
meclizine [Antivert] 25 mg Tablet,Chewable
25 mg PO BIDPRN PRN (Reason: nausea or vertigo) Qty: 10 0RF
lorazepam 0.5 mg Tablet
0.5 mg PO DAILYPRN PRN (Reason: anxiety)
Zepbound 2.5 mg/0.5 mL Pen Injector
2.5 mg SC PULIDO
Patient Comments:
07/24/24: Planned to go to 5mg for next dose
Rx Instructions:
for 4 weeks
Eliquis 5 mg Tablet
2.5 mg PO BID
Interventions
Interventions:
*Risk Screen - Suicide Last Done: 07/24/24 13:30
*General Assessment Last Done: 07/24/24 13:30
*Neglect/Abuse Screening Last Done: 07/24/24 16:55
*ED- Fall Risk Assessment Last Done: 07/24/24 16:01
*ED COVID-19 Vaccine History Last Done: 07/24/24 16:01
ED- Pulmonary Assessment Last Done: 07/24/24 16:01
ED- Neurological Assessment Last Done: 07/24/24 16:01
ED- Cardiac Assessment Last Done: 07/24/24 16:01
ED Swallowing Screen Last Done: 07/24/24 16:53
Discharge Date and Time
Print Language: AZERI
[2024-07-24] MEDS: AMOXIL 500 MG PO (17:42)
[2024-07-24] MEDS: MUCINEX 1200 MG PO (17:42)
--- NOTE | 2024-07-24 17:51 | EDRN ---
Reviewed discharge instructions with patient. Verbalized understanding. Ambulated with steady gait to the lobby.
== END 2024-07-24 17:53 | disposition home or self-care (01) ==
LOC: EMR 13:26
PROVIDERS: EMERGENCY PHYSICIAN Emergency Medicine; FAMILY PHYSICIAN Internal Medicine
DX: R42 Dizziness and giddiness (principal); R20.0 Anesthesia of skin; I48.91 Unspecified atrial fibrillation; I10 Essential (primary) hypertension; E78.00 Pure hypercholesterolemia, unspecified; K57.90 Diverticulosis of intestine, part unspecified, without perforation or abscess without bleeding; I73.9 Peripheral vascular disease, unspecified; J45.909 Unspecified asthma, uncomplicated; G47.30 Sleep apnea, unspecified; N40.0 Benign prostatic hyperplasia without lower urinary tract symptoms; Z79.01 Long term (current) use of anticoagulants; Z98.890 Other specified postprocedural states; Z98.0 Intestinal bypass and anastomosis status; Z91.041 Radiographic dye allergy status
CPT/HCPCS: 99284; 70450; 80053; 85025; 85610; 85730; 93005